=== PATIENT | male | born 1950 | race Caucasian/White ===

== ENCOUNTER → 2020-04-24 | Outpatient (CLI) | payer MEDICARE, BC ==
[2020-04-24 09:26] LABS: Basophils # (A) 0.1 k/uL (0-0.2); Basophils % (A) 1 %; Eosinophils # (A) 0.1 k/uL (0-0.7); Eosinophils % (A) 2 %; HCT 49.8 % (39.0-53.0); HGB 17.5 gm/dL (13.0-17.5); Lymphocytes # (A) 1.6 k/uL (1.0-4.8); Lymphocytes % (A) 23 %; MCH 31.6 pg (25.0-35.0); MCHC 35.1 g/dL (31.0-37.0); Mean Platelet Volume 7.6; Monocytes # (A) 0.3 k/uL (0-1.0); Monocytes % (A) 5 %; Neutrophils # (A) 4.7 k/uL (1.3-7.7); Neutrophils % (A) 68 %; Platelet Count 179 k/uL (150-450); RBC 5.54 m/uL (4.30-5.90); RDW 13.1 % (11.5-15.5); WBC 6.9 k/uL (3.8-10.6)
[2020-04-24 09:27] LABS: Appearance,Urine Clear (Clear); Bilirubin,Urine Negative (Negative); Blood,Urine Negative (Negative); Color,Urine Yellow; Glucose,Urine (UA) 4+ (Negative); Ketones,Urine Negative (Negative); Leukocyte Esterase,Urine Negative (Negative); Nitrite,Urine Negative (Negative); PH, Urine 6.5 (5.0-8.0); Protein,Urine Negative (Negative); Urobilinogen,Urine <2.0 mg/dL (<2.0)
[2020-04-24 15:27] LABS: T4, Free (Free Thyroxine) 1.3 ng/dL (0.80-1.80)
[2020-04-24 15:38] LABS: Albumin 4.6 g/dL (3.80-4.90); Albumin/Globulin Ratio 2.09 (1.60-3.17); Anion Gap 9.1 mmol/L (4.00-12.00); Calcium 9.7 mg/dL (8.7-10.3); Carbon Dioxide 25.9 mmol/L (21.6-31.8); Chol/HDL Ratio 4.17; Globulin 2.2 g/dL (1.6-3.3); LDL Cholesterol,Calculated 86.2 mg/dL (0.0-131.0); Non-African American GFR(CKD) 75.9 (60.0-200.0); PSA Annual Screen 1.1 ng/mL (0.0-4.0); Potassium 4.5 mmol/L (3.5-5.5); Total Bilirubin 0.8 mg/dL (0.3-1.2); Total Protein 6.8 g/dL (6.2-8.2); VLDL Calculation 43.8 mg/dL (5.00-40.00)
== END | disposition home or self-care (01) ==
LOC: LABWHC1 08:48
PROVIDERS: ATTEND Family Medicine
DX: E78.5 Hyperlipidemia, unspecified (principal); E11.9 Type 2 diabetes mellitus without complications; I10 Essential (primary) hypertension; D64.9 Anemia, unspecified; Z12.5 Encounter for screening for malignant neoplasm of prostate
CPT/HCPCS: 84439; 80061; 80053; 84443; 85025; 81003; 36415; G0103

== ENCOUNTER 2021-03-24 01:35 | Inpatient (IN) | payer OTHER, MEDICARE ==
[2021-03-24] MEDS ORDERED: SODIUM CHLORIDE 0.9% 500 ML 500 ML IV STA ×2 (02:04→02:21)
--- NOTE | 2021-03-24 02:09 | ED ---
SOB HPI - General Chief Complaint: Shortness of Breath Stated Complaint: SOB Time Seen by Provider: 03/24/21 01:47 Source: patient Mode of arrival: EMS Limitations: no limitations - History of Present Illness MD Complaint: shortness of breath, cough Onset/Timin -: week(s) Consistency: constant Improves With: nothing Worsens With: nothing Associated Symptoms: fever, cough - Related Data Home Oxygen Therapy: No Allergies Allergy/AdvReac Type Severity Reaction Status Date / Time Penicillins Allergy Unknown Verified 03/24/21 01:41 Review of Systems ROS Statement: Those systems with pertinent positive or pertinent negative responses have been documented in the HPI. ROS Other: All systems not noted in ROS Statement are negative. Constitutional: Reports: fever, chills Respiratory: Reports: cough, dyspnea. Denies: hemoptysis Cardiovascular: Denies: chest pain, palpitations, edema, syncope Gastrointestinal: Denies: abdominal pain, nausea, vomiting, diarrhea Genitourinary: Denies: dysuria, hematuria Musculoskeletal: Denies: back pain Skin: Denies: rash Neurological: Reports: headache. Denies: weakness, numbness Past Medical History Past Medical History: Diabetes Mellitus History of Any Multi-Drug Resistant Organisms: None Reported Past Surgical History: No Surgical Hx Reported Past Psychological History: No Psychological Hx Reported Smoking Status: Never smoker Past Alcohol Use History: None Reported Past Drug Use History: None Reported General Exam Limitations: no limitations General appearance: alert, in no apparent distress Head exam: Present: atraumatic, normocephalic Eye exam: Present: normal appearance. Absent: scleral icterus, conjunctival injection Respiratory exam: Present: rales. Absent: respiratory distress, wheezes, rhonchi, stridor, accessory muscle use Cardiovascular Exam: Present: normal rhythm, tachycardia, normal heart sounds. Absent: systolic murmur, diastolic murmur, rubs, gallop GI/Abdominal exam: Present: soft. Absent: distended, tenderness, guarding, rebound, rigid, mass Extremities exam: Present: normal inspection, normal capillary refill. Absent: pedal edema, calf tenderness Back exam: Present: normal inspection. Absent: CVA tenderness (R), CVA tenderness (L) Neurological exam: Present: alert Skin exam: Present: warm, dry, intact, normal color. Absent: rash Course Vital Signs 03/24/21 03/24/21 03/24/21 01:40 01:41 01:45 Temperature 98.0 F Pulse Rate 120 H 47 L Respiratory 26 H Rate Blood Pressure 114/73 O2 Sat by Pulse 75 L 90 L Oximetry Medical Decision Making - Lab Data Lab Results 03/24/21 Range/Units 01:46 Coronavirus (PCR) Detected A (Not Detectd) - EKG Data -: EKG Interpreted by Mi EKG shows normal: sinus rhythm, axis (Normal), intervals (Normal), QRS complexes (Normal), ST-T waves (Normal) Rate: tachycardia (Rate 118 bpm) Disposition Referrals: Major Malik MD [Primary Care Provider] - 1-2 days
[2021-03-24 02:16] LABS: Basophils # (A) 0.1 k/uL (0-0.2); Basophils % (A) 1 %; Eosinophils % (A) 0 %; HCT 48.9 % (39.0-53.0); HGB 16.9 gm/dL (13.0-17.5); Hyperchromasia Slight; Lymphocytes # (A) 0.6 k/uL (1.0-4.8); Lymphocytes % (A) 5 %; MCH 31.2 pg (25.0-35.0); MCHC 34.7 g/dL (31.0-37.0); MCV 90.2 fL (80.0-100.0); Mean Platelet Volume 8.5; Monocytes # (A) 0.3 k/uL (0-1.0); Monocytes % (A) 3 %; Neutrophils # (A) 10.2 k/uL (1.3-7.7); Neutrophils % (A) 90 %; Platelet Count 237 k/uL (150-450); Poikilocytosis Slight; RBC 5.42 m/uL (4.30-5.90); RDW 13.8 % (11.5-15.5); WBC 11.3 k/uL (3.8-10.6)
[2021-03-24 02:19] LABS: Albumin 3.9 g/dL (3.5-5.0); Calcium 9.1 mg/dL (8.4-10.2); Potassium 4.2 mmol/L (3.5-5.1); Total Bilirubin 1.3 mg/dL (0.2-1.3); Total Protein 7.3 g/dL (6.3-8.2)
--- NOTE | 2021-03-24 02:25 | XR ---
EXAMINATION TYPE: XR chest 1V portable DATE OF EXAM: 03/24/2021 COMPARISON: NONE HISTORY: Short of breath TECHNIQUE: Single view FINDINGS: There is patchy pulmonary infiltrates bilaterally. This is interstitial and airspace diseas e. There is no obvious heart failure. Heart size is normal. There is no definite pleural effusion. Th ere are chest leads. Bony thorax is intact. IMPRESSION: Patchy bilateral pneumonia. Normal heart.
[2021-03-24 02:34] LABS: Glucose,Whole Blood 182 mg/dL (75-99)
[2021-03-24] MEDS ORDERED: MORPHINE SULFATE 4 MG/ML SYRINGE IV STA (02:36)
[2021-03-24 02:39] LABS: Partial Thromboplastin Time 22.2 sec (22.0-30.0); Prothrombin Time 10.4 sec (9.0-12.0)
[2021-03-24] MEDS ORDERED: DEXAMETHASONE SOD PHOSPHATE 4 MG/ML 1 ML VIAL IVP STA (03:01)
--- NOTE | 2021-03-24 03:39 | CT ---
EXAMINATION TYPE: CT chest angio for PE DATE OF EXAM: 03/24/2021 COMPARISON: None HISTORY: elevated d-dimer CT DLP: 576.2 mGycm Automated exposure control for dose reduction was used. CONTRAST: Performed with IV Contrast, patient injected with 75 mL of Isovue 370. There are 3-D post processed images. There are some mediastinal and bronchial lymph nodes that measure up to 1.5 cm. There is hiatal herni a. Heart size is normal. There is extensive patchy interstitial and airspace infiltrate in both lungs . There is no pleural effusion. There is no pericardial effusion. There is moderate hiatal hernia not ed. There is normal contrast opacification of the pulmonary arteries. I see no filling defect. There is some degenerative spurring in the thoracic spine. There is no significant compression deform ity. 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 There is no evidence of rib fracture. Upper abdo severino soft tissues are intact. IMPRESSION: No evidence of pulmonary embolism. Extensive patchy bilateral pneumonia with mediastinal and bronchial adenopathy. Small right pleural e ffusion.
[2021-03-24] MEDS ORDERED: AZITHROMYCIN 500 MG TAB PO STA (03:42)
[2021-03-24] MEDS: DEXAMETHASONE SOD PHOSPHATE 10 MG/ML 1 ML VIAL IVP SCH ×5 (03:42→10:43)
[2021-03-24] MEDS ORDERED: PNEUMONIA PROTOCOL UTILIZED 1 EACH MISC PO PRN (04:02)
[2021-03-24] MEDS ORDERED: ENOXAPARIN 100 MG/ML SYRINGE SQ STA (04:05)
[2021-03-24] MEDS ORDERED: MELATONIN 5 MG TABLET PO PRN (04:39)
--- NOTE | 2021-03-24 04:41 | P.HPIM ---
History of Present Illness H&P Date: 03/24/21 The patient is a 71-year-old male with a PMH of type II DM presented to the emergency room with complaints of myalgias, fevers, headaches, and poor appetite. Patient reports that his symptoms started roughly one week ago and gradually worsened. He also reports a nonproductive cough along with gradually worsening shortness of breath. The patient denied abdominal pain, nausea, vomiting, diarrhea. Also denied visual disturbances, weakness, numbness, tingling. In the emergency room, a coronavirus PCR test was positive with SpO2 upon presentation 75% on room air. Chest CTA revealed bilateral pneumonia without PE with an EKG showing sinus tachycardia at 118 bpm in no acute ST/T- wave changes noted as reviewed by me. Further laboratory evaluation was remarkable for lactic acid of 2.5, BUN 40, creatinine 1.38, glucose 192. Review of systems: Pertinent positives and negatives as discussed in HPI, a complete review of systems was performed and all other systems are negative. Physical examination: General: non toxic, no distress, appears at stated age, obese Derm: no unusual rashes/lesions no unusual ecchymoses, warm, dry Head: atraumatic, normocephalic, symmetric Eyes: EOMI, no lid lag, anicteric sclera, pupils equal round reactive to light ENT: Nose and ears atraumatic, no thrush, no pharyngeal erythema Neck: No thyromegaly, no cervical lymphadenopathy, trachea midline, supple Mouth: no lip lesion, mucus membranes moist Cardiovascular: S1S2 reg, no murmur, positive posterior tibial pulse bilateral, no edema, capillary refill less than 2 seconds Lungs: Diffuse bilateral rhonchi, no wheezing, no accessory muscle use Abdominal: soft, nontender to palpation, no guarding, no appreciable organomegaly, normal bowel sounds Ext: no gross muscle atrophy, muscle strength 5 out of 5 in all 4 extremities grossly, no contractures, Neuro: CN II-XI grossly intact, light touch intact all 4 extremities, finger to nose within normal limits, Psych: Alert, oriented, appropriate affect Assessment/plan COVID 19 pneumonitis with acute hypoxic respiratory failure -Continue supplemental oxygen -Dexamethasone -Zinc, vitamin C, vitamin D, melatonin -Monitor inflammatory markers -Pulmonary consulted Lactic acidosis -IV fluids and monitored resolution Acute kidney injury, likely secondary to poor oral intake -IV fluids and monitor Chronic conditions: Type II DM -Check A1c -Lispro insulin sliding scale and blood glucose monitoring DVT prophylaxis -Lovenox The patient is admitted with an anticipated greater than 2 midnight stay for evaluation of COVID CODE STATUS: Full Code Discussed with: Patient Anticipated discharge date: Unclear Anticipated discharge place: Home Past Medical History Past Medical History: Diabetes Mellitus History of Any Multi-Drug Resistant Organisms: None Reported Past Surgical History: No Surgical Hx Reported Past Psychological History: No Psychological Hx Reported Smoking Status: Never smoker Past Alcohol Use History: None Reported Past Drug Use History: None Reported - Past Family History Mother Family Medical History: Diabetes Mellitus Medications and Allergies Allergies Allergy/AdvReac Type Severity Reaction Status Date / Time Penicillins Allergy Unknown Verified 03/24/21 01:41 Physical Exam Vitals: Vital Signs Temp Pulse Resp BP Pulse Ox 03/24/21 02:34 116 H 22 106/81 90 L 03/24/21 01:45 90 L 03/24/21 01:41 98.0 F 47 L 26 H 114/73 75 L 03/24/21 01:40 120 H Intake and Output 03/23/21 03/23/21 03/24/21 14:59 22:59 06:59 Other: Weight 97.976 kg Results CBC & Chem 7: 03/24/21 01:47 03/24/21 01:47 Labs: Abnormal Lab Results - Last 24 Hours (Table) 03/24/21 03/24/21 03/24/21 Range/Units 01:46 01:47 01:47 WBC 11.3 H (3.8-10.6) k/uL Neutrophils # 10.2 H (1.3-7.7) k/uL Lymphocytes # 0.6 L (1.0-4.8) k/uL D-Dimer >34.10 H (<0.60) mg/L FEU Sodium (137-145) mmol/L Carbon Dioxide (22-30) mmol/L BUN (9-20) mg/dL Creatinine (0.66-1.25) mg/dL Glucose (74-99) mg/dL POC Glucose (mg/dL) (75-99) mg/dL Plasma Lactic Acid Keshav (0.7-2.0) mmol/L Coronavirus (PCR) Detected A (Not Detectd) 03/24/21 03/24/21 03/24/21 Range/Units 01:47 01:47 02:31 WBC (3.8-10.6) k/uL Neutrophils # (1.3-7.7) k/uL Lymphocytes # (1.0-4.8) k/uL D-Dimer (<0.60) mg/L FEU Sodium 134 L (137-145) mmol/L Carbon Dioxide 19 L (22-30) mmol/L BUN 40 H (9-20) mg/dL Creatinine 1.38 H (0.66-1.25) mg/dL Glucose 192 H (74-99) mg/dL POC Glucose (mg/dL) 182 H (75-99) mg/dL Plasma Lactic Acid Keshav 2.5 H* (0.7-2.0) mmol/L Coronavirus (PCR) (Not Detectd)
[2021-03-24] MEDS ORDERED: MAG HYDROX/AL HYDROX/SIMETH 30 ML CUP PO PRN (04:43)
[2021-03-24] MEDS: ALBUTEROL HFA INHALER INHALATION PRN ×4 (07:26→22:17)
[2021-03-24] MEDS: ASCORBIC ACID 500 MG TAB PO SCH (08:40)
[2021-03-24] MEDS: ZINC SULFATE 220 MG CAP PO SCH (08:40)
[2021-03-24] MEDS: CHOLECALCIFEROL 25 MCG (1000 IU) TABLET PO SCH (08:40)
[2021-03-24] MEDS: SODIUM CHLORIDE 0.9% 1,000 ML IV SCH (08:41)
[2021-03-24] MEDS: INSULIN ASPART (NovoLOG) 100 UNIT/ML VIAL SQ SCH ×4 (08:42→21:26)
[2021-03-24 08:44] LABS: Glucose,Whole Blood 191 mg/dL (75-99)
[2021-03-24] MEDS ORDERED: CHOLECALCIFEROL 125 MCG (5000 IU) TABLET PO SCH (09:00)
--- NOTE | 2021-03-24 09:39 | P.CNPUL ---
History of Present Illness Consult date: 03/24/21 Requesting physician: Michael Orantes Reason for consult: dyspnea, cough, hypoxemia, pneumonia, abnormal CXR/CT Chief complaint: Dyspnea, hypoxia, COVID-19 pneumonia History of present illness: 71-year-old white male patient with past medical history of diabetes mellitus type II who presented to the emergency department with the one week history of cough, headaches. His initial symptoms started as what felt like a chest cold, and became progressive. Patient follows with Dr. Malik. His cough is nonproductive. His had no nausea vomiting or diarrhea, no abdominal pain. She tested positive for COVID-19 in the emergency department, and his SpO2 upon presentation was 75% on room air. His chest x-ray showed patchy bilateral pneumonia. D-dimer was elevated at greater than 34.1, and CTA chest was completed showing no evidence of pulmonary embolism, and extensive patchy bilateral pneumonia with mediastinal and bronchial adenopathy and small right pleural effusion. She is currently on 8 L of oxygen his pulse ox is 88-90%, he is in sinus mechanism slightly tachycardic with a rate of 105 BPM, afebrile, he is awaiting a bed on medical surgical floor. He is awake and alert, oriented 3, dyspneic, but appears to be in no acute distress. Started on Decadron 6 mg daily, he is started on vitamins C, D, and zinc, and prophylactic dose Lovenox. Review of Systems All systems: negative Constitutional: Denies chills, Denies fever Eyes: denies blurred vision, denies pain Ears, nose, mouth and throat: Denies headache, Denies sore throat Cardiovascular: Denies chest pain, Denies shortness of breath Respiratory: Reports cough, Reports dyspnea Gastrointestinal: Denies abdominal pain, Denies diarrhea, Denies nausea, Denies vomiting Musculoskeletal: Denies myalgias Integumentary: Denies pruritus, Denies rash Neurological: Denies numbness, Denies weakness Psychiatric: Denies anxiety, Denies depression Endocrine: Denies fatigue, Denies weight change Past Medical History Past Medical History: Diabetes Mellitus History of Any Multi-Drug Resistant Organisms: None Reported Past Surgical History: No Surgical Hx Reported Past Psychological History: No Psychological Hx Reported Smoking Status: Never smoker Past Alcohol Use History: None Reported Past Drug Use History: None Reported - Past Family History Mother Family Medical History: Diabetes Mellitus Medications and Allergies Home Medications Medication Instructions Recorded Confirmed Type Atorvastatin [Lipitor] 10 mg PO DAILY 03/24/21 03/24/21 History Cetirizine HCl [Zyrtec] 10 mg PO DAILY 03/24/21 03/24/21 History Dapagliflozin/Metformin HCl 1 tab PO DAILY 03/24/21 03/24/21 History [Xigduo Xr 10 mg-1,000 mg Tab] Magnesium Oxide 400 mg PO DAILY 03/24/21 03/24/21 History Multivitamins, Thera [Multivitamin 1 tab PO DAILY 03/24/21 03/24/21 History (formulary)] Omeprazole 20 mg PO DAILY 03/24/21 03/24/21 History lisinopriL 10 mg PO DAILY 03/24/21 03/24/21 History Allergies Allergy/AdvReac Type Severity Reaction Status Date / Time Penicillins Allergy Rash/Hives Verified 03/24/21 07:39 Physical Exam Vitals: Vital Signs Temp Pulse Resp BP Pulse Ox 03/24/21 07:36 102 H 16 124/78 88 L 03/24/21 06:06 105 H 18 121/75 90 L 03/24/21 02:34 116 H 22 106/81 90 L 03/24/21 01:45 90 L 03/24/21 01:41 98.0 F 47 L 26 H 114/73 75 L 03/24/21 01:40 120 H Intake and Output 03/23/21 03/24/21 03/24/21 22:59 06:59 14:59 Other: Weight 97.976 kg GENERAL EXAM: Alert, very pleasant, 71-year-old white male, on 8 L of oxygen with pulse ox of 80-90%, resting in a gurney in the emergency department comfortable in no apparent distress. HEAD: Normocephalic/atraumatic. EYES: Normal reaction of pupils, equal size. Conjunctiva pink, sclera white. NOSE: Clear with pink turbinates. THROAT: No erythema or exudates. NECK: No masses, no JVD, no thyroid enlargement, no adenopathy. CHEST: No chest wall deformity. Symmetrical expansion. LUNGS: Equal air entry with diffuse crackles bilaterally CVS: Regular rate and rhythm, normal S1 and S2, no gallops, no murmurs, no rubs ABDOMEN: Soft, nontender. No hepatosplenomegaly, normal bowel sounds, no guarding or rigidity. EXTREMITIES: No clubbing, no edema, no cyanosis, 2+ pulses and upper and lower extremities. MUSCULOSKELETAL: Muscle strength and tone normal. SPINE: No scoliosis or deformity SKIN: No rashes CENTRAL NERVOUS SYSTEM: Alert and oriented -3. No focal deficits, tone is normal in all 4 extremities. PSYCHIATRIC: Alert and oriented -3. Appropriate affect. Intact judgment and insight. Results - Laboratory Findings CBC and BMP: 03/24/21 01:47 03/24/21 01:47 PT/INR, D-dimer PT 10.4 sec (9.0-12.0) 03/24/21 01:47 INR 1.0 (<1.2) 03/24/21 01:47 D-Dimer >34.10 mg/L FEU (<0.60) H 03/24/21 01:47 Abnormal lab findings: Abnormal Labs 03/24/21 03/24/21 03/24/21 01:46 01:47 01:47 WBC 11.3 H Neutrophils # 10.2 H Lymphocytes # 0.6 L D-Dimer >34.10 H Sodium Carbon Dioxide BUN Creatinine Glucose POC Glucose (mg/dL) Plasma Lactic Acid Keshav Coronavirus (PCR) Detected A 03/24/21 03/24/21 03/24/21 01:47 01:47 02:31 WBC Neutrophils # Lymphocytes # D-Dimer Sodium 134 L Carbon Dioxide 19 L BUN 40 H Creatinine 1.38 H Glucose 192 H POC Glucose (mg/dL) 182 H Plasma Lactic Acid Keshav 2.5 H* Coronavirus (PCR) 03/24/21 08:38 WBC Neutrophils # Lymphocytes # D-Dimer Sodium Carbon Dioxide BUN Creatinine Glucose POC Glucose (mg/dL) 191 H Plasma Lactic Acid Keshav Coronavirus (PCR) - Diagnostic Findings Chest x-ray: report reviewed, image reviewed CT scan - chest: report reviewed, image reviewed Assessment and Plan Plan: Assessment: #1. Acute hypoxic respiratory failure related to acute COVID-19 pneumonia, patient presented with 1 week history of symptoms with cough, shortness of breath, headaches. Tested positive in the emergency department on 03/23/2021. Patient is not a candidate for Remdesivir related to his increased oxygen demand, patient currently on 8 L of oxygen. Will be treated supportively with a combination of steroids, vitamins, and prophylactic anticoagulation #2. Elevated d-dimer with no CTA evidence of pulmonary embolism, we will check lower extremity Dopplers #3. Acute kidney injury #4. Mild lactic acidosis, patient was given IV fluid bolus in the emergency department, repeat lactic acid is pending #5. Diabetes mellitus type 2 Plan: Continue Decadron 6 blood gram daily Continue prophylactic Lovenox We will check lower extremity Dopplers for evidence of DVT Chest x-ray and CT angiogram chest reviewed, labs reviewed Patient is not a candidate for Remdesivir related to his increased oxygen demand If his oxygen demand continues to rise may consider baricitinib Continue gentle IV hydration Follow-up labs including CBC CMP, inflammatory markers and a d-dimer tomorrow Continue vitamin C, D and zinc I performed a history & physical examination of the patient and discussed their management with my nurse practitioner, Mary Davis. I reviewed the nurse practitioner's note and agree with the documented findings and plan of care. Lung sounds are positive for bibasilar crackles throughout the lung gotti. The findings and the impression was discussed with the patient. I attest to the documentation by the nurse practitioner. Time with Patient: Greater than 30
--- NOTE | 2021-03-24 09:45 | US ---
EXAMINATION TYPE: US venous doppler duplex LE DATE OF EXAM: 03/24/2021 9:01 AM COMPARISON: NONE CLINICAL HISTORY: 71-year-old male elevated d-dimer. Covid SIDE PERFORMED: Bilateral TECHNIQUE: The lower extremity deep venous system is examined utilizing real time linear array sonog diane with graded compression, doppler sonography and color-flow sonography. FINDINGS: VESSELS IMAGED: Common Femoral Vein Deep Femoral Vein Greater Saphenous Vein * Femoral Vein Popliteal Vein Small Saphenous Vein * Proximal Calf Veins (* superficial vessels) Tax Accountant notes: Slow flow noted Right Leg: Negative for DVT Left Leg: Negative for DVT IMPRESSION: Some areas of slow flow noted by the junior high school teacher. However, no evidence for DVT within the bilateral l ower extremities imaged from the groin to the upper calves.
[2021-03-24 11:05] LABS: HCT 45.8 % (39.6-50.0); HGB 15.6 g/dL (13.0-17.0); MCH 30.8 pg (27.0-32.0); MCHC 34.1 g/dL (32.0-37.0); MCV 90.3 fL (80.0-97.0); Mean Platelet Volume 11.2 fL (9.5-12.2); Platelet Count 244 X 10*3/uL (140-440); RBC 5.07 X 10*6/uL (4.40-5.60); RDW 13.5 % (11.5-14.5); WBC 12.32 X 10*3/uL (4.50-10.00)
[2021-03-24 11:09] LABS: African American GFR (CKD) 70.1 (60.0-200.0); Anion Gap 20.9 mmol/L (4.00-12.00); BUN/Creat Ratio 29.75 Ratio (12.00-20.00); Blood Urea Nitrogen 35.7 mg/dL (9.0-27.0); Calcium 8.6 mg/dL (8.7-10.3); Carbon Dioxide 15.1 mmol/L (21.6-31.8); Non-African American GFR(CKD) 60.5 (60.0-200.0); Potassium 4.7 mmol/L (3.5-5.5)
[2021-03-24 11:48] LABS: Glucose,Whole Blood 212 mg/dL (75-99)
--- NOTE | 2021-03-24 13:30 | P.PN ---
<Melecio Ramsey - Last Filed: 03/24/21 12:56> Subjective Progress Note Date: 03/24/21 Hospital Course: The patient is a 71-year-old male with a past medical history of hypertension, hyperlipidemia, and type II drm-qmuxpsj-knpbjshdd diabetes mellitus. He presented to the emergency department on 03/23/21 with a chief complaint of shortness of breath, fever, cough, myalgias, and poor appetite beginning approximately one week ago. He was seen and fully evaluated in the emergency department where he had a chest x-ray revealing bilateral patchy pneumonia and a CTA negative for pulmonary embolism revealing extensive patchy bilateral pneumonia with mediastinal and bronchial adenopathy and small right pleural effusion. Covid PCR POSITIVE. EKG revealed sinus tachycardia at 118 bpm with no noted T-wave or ST abnormalities showing no signs of acute ischemia. Lab findings revealed leukocytosis with WBC count of 12.32, d-dimer >34.10, sodium 133, BUN 35.7, and carbon dioxide 15.1 with normal chloride and elevated anion gap of 20.90. Lactic acid 2.5 and procalcitonin 1.51. Patient was admitted under our services with consultation to pulmonology. Patient did not receive Covid vaccination. Physical examination: Patient seen and fully evaluated at the bedside this morning. Upon initial assessment, venous Dopplers were being completed and patient was on 6 L O2 via nasal cannula with SpO2 87-88% decreasing to 85% with minimal conversation. Oxygen increased to 8 L at this time and patient maintaining between 90 and 91%. Pt reports continued shortness of breath and cough in addition to reports of back pain in which he states as being chronic but has been exacerbated by lying in the hospital bed. Morning labs revealing continued leukocytosis with WBC count of 12.32, mild hyponatremia with sodium of 133 continued acidosis with CO2 of 15.1, chloride 97, and anion gap of 20.90. Pending repeat lactic acid. General: non toxic, mild distress secondary to increased respiratory effort, appears at stated age Derm: warm, dry Head: atraumatic, normocephalic, symmetric Eyes: EOMI, no lid lag, anicteric sclera Mouth: no lip lesion, mucus membranes moist Cardiovascular: S1S2 reg, no murmur, positive posterior tibial pulses bilaterally, regular rhythm, tachycardic rate Lungs: Increased respiratory effort, Diffuse coarse crackles throughout mid and lower lungs, no wheezing. Coarse raspy cough noted during assessment. Cu rrently on 8 L O2 via high flow nasal cannula. Abdominal: soft, nontender to palpation, no guarding, no appreciable organomegaly Ext: no gross muscle atrophy, no edema, no contractures Neuro: CN II-XI grossly intact, no focal neuro deficits Psych: Alert, oriented, appropriate affect Assessment and plan of care: Acute respiratory failure with hypoxia secondary to COVID 19 pneumonia in non- vaccinated person -Oxygenation to be administered and titrated as needed to maintain SPO2 equal to or greater than 90% -Telemetry monitoring. -Follow inflammatory markers -Encourage Incentive Spirometry 10-15x hourly while awake -Steroids: Decadron 6 mg daily -Continue vitamin C, Vitamin D, and Zinc. -Pulmonology following, appreciate further recommendations. -DVT prophylaxis with Lovenox. -Strict Droplet plus Contact precautions Elevated d-dimer, CTA negative for PE Lactic acidosis -Lactic acid was 2.5. Morning labs show CO2 of 15.1, chloride 97, and anion gap of 20.90. -IV fluids given and will monitor for resolution, repeat lactate pending. Acute kidney injury, likely secondary to poor oral intake, improving -Initial labs revealed BUN of 40, creatinine of 1.38, and GFR 51 this improved after IV fluids given in ER with BUN of 35.7, creatinine 1.2, and GFR of 60.5. -We will continue to monitor with repeat a.m. labs. Type II ntt-vjltjhb-pjotggsxf diabetes mellitus Hold Glucophage in place patient on glycemic protocol with NovoLog sliding scale. Hypertension Monitor vital signs and continue daily medication regimen with lisinopril. Hyperlipidemia Continue daily medication regimen with atorvastatin 10 mg daily. CODE STATUS: Full code DVT prophylaxis: Lovenox Discussed with: Patient, patient's , and RN Anticipated discharge date: Clinical course to determine Anticipated discharge place: Home A total of 45 minutes was spent on the care of this complex patient more than 50% of the time was spent in counseling and care coordination. Objective - Vital Signs Vital signs: Vital Signs Temp 98.0 F 03/24/21 01:44 Pulse 102 H 03/24/21 07:36 Resp 16 03/24/21 07:36 BP 124/78 03/24/21 07:36 Pulse Ox 88 L 03/24/21 07:36 Intake & Output 03/23/21 03/24/2121 18:59 06:59 18:59 Weight 97.976 kg - Labs CBC & Chem 7: 03/24/21 07:45 03/24/21 07:45 Labs: Abnormal Lab Results - Last 24 Hours (Table) 03/24/21 03/24/21 03/24/21 Range/Units 01:46 01:47 01:47 WBC 11.3 H (3.8-10.6) k/uL Neutrophils # 10.2 H (1.3-7.7) k/uL Lymphocytes # 0.6 L (1.0-4.8) k/uL D-Dimer >34.10 H (<0.60) mg/L FEU Sodium (137-145) mmol/L Carbon Dioxide (22-30) mmol/L Anion Gap (4.00-12.00) mmol/L BUN (9-20) mg/dL Creatinine (0.66-1.25) mg/dL BUN/Creatinine Ratio (12.00-20.00) Ratio Glucose (74-99) mg/dL POC Glucose (mg/dL) (75-99) mg/dL Plasma Lactic Acid Keshav (0.7-2.0) mmol/L Calcium (8.7-10.3) mg/dL Procalcitonin (0.02-0.09) ng/mL Coronavirus (PCR) Detected A (Not Detectd) 03/24/21 03/24/21 03/24/21 Range/Units 01:47 01:47 02:31 WBC (3.8-10.6) k/uL Neutrophils # (1.3-7.7) k/uL Lymphocytes # (1.0-4.8) k/uL D-Dimer (<0.60) mg/L FEU Sodium 134 L (137-145) mmol/L Carbon Dioxide 19 L (22-30) mmol/L Anion Gap (4.00-12.00) mmol/L BUN 40 H (9-20) mg/dL Creatinine 1.38 H (0.66-1.25) mg/dL BUN/Creatinine Ratio (12.00-20.00) Ratio Glucose 192 H (74-99) mg/dL POC Glucose (mg/dL) 182 H (75-99) mg/dL Plasma Lactic Acid Keshav 2.5 H* (0.7-2.0) mmol/L Calcium (8.7-10.3) mg/dL Procalcitonin (0.02-0.09) ng/mL Coronavirus (PCR) (Not Detectd) 03/24/21 03/24/21 03/24/21 Range/Units 03:20 07:45 07:45 WBC 12.32 H (3.8-10.6) k/uL Neutrophils # (1.3-7.7) k/uL Lymphocytes # (1.0-4.8) k/uL D-Dimer (<0.60) mg/L FEU Sodium 133 L (137-145) mmol/L Carbon Dioxide 15.1 L (22-30) mmol/L Anion Gap 20.90 H (4.00-12.00) mmol/L BUN 35.7 H (9-20) mg/dL Creatinine (0.66-1.25) mg/dL BUN/Creatinine Ratio 29.75 H (12.00-20.00) Ratio Glucose 201 H (74-99) mg/dL POC Glucose (mg/dL) (75-99) mg/dL Plasma Lactic Acid Keshav (0.7-2.0) mmol/L Calcium 8.6 L (8.7-10.3) mg/dL Procalcitonin 1.51 H (0.02-0.09) ng/mL Coronavirus (PCR) (Not Detectd) 03/24/21 03/24/21 Range/Units 08:38 11:45 WBC (3.8-10.6) k/uL Neutrophils # (1.3-7.7) k/uL Lymphocytes # (1.0-4.8) k/uL D-Dimer (<0.60) mg/L FEU Sodium (137-145) mmol/L Carbon Dioxide (22-30) mmol/L Anion Gap (4.00-12.00) mmol/L BUN (9-20) mg/dL Creatinine (0.66-1.25) mg/dL BUN/Creatinine Ratio (12.00-20.00) Ratio Glucose (74-99) mg/dL POC Glucose (mg/dL) 191 H 212 H (75-99) mg/dL Plasma Lactic Acid Keshav (0.7-2.0) mmol/L Calcium (8.7-10.3) mg/dL Procalcitonin (0.02-0.09) ng/mL Coronavirus (PCR) (Not Detectd) <Geovanna Ni - Last Filed: 03/24/21 13:55> Subjective I reviewed the documentation as provided by the OPAL above, who is the original author of this note. I agree with the documented assessment and plan, with the following changes: None Objective - Vital Signs Vital signs: Vital Signs Temp 98.0 F 03/24/21 13:46 Pulse 98 03/24/21 13:46 Resp 18 03/24/21 13:46 BP 121/77 03/24/21 13:46 Pulse Ox 89 L 03/24/21 13:46 Intake & Output 03/23/21 03/24/21 03/24/21 18:59 06:59 18:59 Weight 97.976 kg - Labs CBC & Chem 7: 03/24/21 07:45 03/24/21 07:45 Labs: Abnormal Lab Results - Last 24 Hours (Table) 03/24/21 03/24/21 03/24/21 Range/Units 01:46 01:47 01:47 WBC 11.3 H (3.8-10.6) k/uL Neutrophils # 10.2 H (1.3-7.7) k/uL Lymphocytes # 0.6 L (1.0-4.8) k/uL D-Dimer >34.10 H (<0.60) mg/L FEU Sodium (137-145) mmol/L Carbon Dioxide (22-30) mmol/L Anion Gap (4.00-12.00) mmol/L BUN (9-20) mg/dL Creatinine (0.66-1.25) mg/dL BUN/Creatinine Ratio (12.00-20.00) Ratio Glucose (74-99) mg/dL POC Glucose (mg/dL) (75-99) mg/dL Plasma Lactic Acid Keshav (0.7-2.0) mmol/L Calcium (8.7-10.3) mg/dL Procalcitonin (0.02-0.09) ng/mL Coronavirus (PCR) Detected A (Not Detectd) 03/24/21 03/24/21 03/24/21 Range/Units 01:47 01:47 02:31 WBC (3.8-10.6) k/uL Neutrophils # (1.3-7.7) k/uL Lymphocytes # (1.0-4.8) k/uL D-Dimer (<0.60) mg/L FEU Sodium 134 L (137-145) mmol/L Carbon Dioxide 19 L (22-30) mmol/L Anion Gap (4.00-12.00) mmol/L BUN 40 H (9-20) mg/dL Creatinine 1.38 H (0.66-1.25) mg/dL BUN/Creatinine Ratio (12.00-20.00) Ratio Glucose 192 H (74-99) mg/dL POC Glucose (mg/dL) 182 H (75-99) mg/dL Plasma Lactic Acid Keshav 2.5 H* (0.7-2.0) mmol/L Calcium (8.7-10.3) mg/dL Procalcitonin (0.02-0.09) ng/mL Coronavirus (PCR) (Not Detectd) 03/24/21 03/24/21 03/24/21 Range/Units 03:20 07:45 07:45 WBC 12.32 H (3.8-10.6) k/uL Neutrophils # (1.3-7.7) k/uL Lymphocytes # (1.0-4.8) k/uL D-Dimer (<0.60) mg/L FEU Sodium 133 L (137-145) mmol/L Carbon Dioxide 15.1 L (22-30) mmol/L Anion Gap 20.90 H (4.00-12.00) mmol/L BUN 35.7 H (9-20) mg/dL Creatinine (0.66-1.25) mg/dL BUN/Creatinine Ratio 29.75 H (12.00-20.00) Ratio Glucose 201 H (74-99) mg/dL POC Glucose (mg/dL) (75-99) mg/dL Plasma Lactic Acid Keshav (0.7-2.0) mmol/L Calcium 8.6 L (8.7-10.3) mg/dL Procalcitonin 1.51 H (0.02-0.09) ng/mL Coronavirus (PCR) (Not Detectd) 03/24/21 03/24/21 Range/Units 08:38 11:45 WBC (3.8-10.6) k/uL Neutrophils # (1.3-7.7) k/uL Lymphocytes # (1.0-4.8) k/uL D-Dimer (<0.60) mg/L FEU Sodium (137-145) mmol/L Carbon Dioxide (22-30) mmol/L Anion Gap (4.00-12.00) mmol/L BUN (9-20) mg/dL Creatinine (0.66-1.25) mg/dL BUN/Creatinine Ratio (12.00-20.00) Ratio Glucose (74-99) mg/dL POC Glucose (mg/dL) 191 H 212 H (75-99) mg/dL Plasma Lactic Acid Keshav (0.7-2.0) mmol/L Calcium (8.7-10.3) mg/dL Procalcitonin (0.02-0.09) ng/mL Coronavirus (PCR) (Not Detectd)
[2021-03-24 16:38] LABS: Glucose,Whole Blood 252 mg/dL (75-99)
[2021-03-24 20:50] LABS: Glucose,Whole Blood 285 mg/dL (75-99)
[2021-03-24] MEDS: ENOXAPARIN 40 MG/0.4 ML SYRINGE SQ SCH (21:26)
[2021-03-25 07:04] LABS: Glucose,Whole Blood 211 mg/dL (75-99)
[2021-03-25] MEDS: PANTOPRAZOLE 40 MG TABLET PO SCH (08:07)
[2021-03-25] MEDS: ATORVASTATIN 10 MG TAB PO SCH (08:07)
[2021-03-25] MEDS: ZINC SULFATE 220 MG CAP PO SCH (08:07)
[2021-03-25] MEDS: HYDROcodone/APAP 5-325MG 1 EACH TAB PO PRN (08:08)
[2021-03-25] MEDS: CHOLECALCIFEROL 25 MCG (1000 IU) TABLET PO SCH (08:08)
[2021-03-25] MEDS: ASCORBIC ACID 500 MG TAB PO SCH (08:08)
[2021-03-25] MEDS: lisinopriL 10 MG TAB PO SCH (08:08)
[2021-03-25] MEDS: INSULIN ASPART (NovoLOG) 100 UNIT/ML VIAL SQ SCH ×4 (08:09→20:35)
[2021-03-25] MEDS: DEXAMETHASONE SOD PHOSPHATE 10 MG/ML 1 ML VIAL IVP SCH (08:09)
--- NOTE | 2021-03-25 08:15 | XR ---
EXAMINATION TYPE: XR chest 1V portable DATE OF EXAM: 03/25/2021 HISTORY: Shortness of breath. COMPARISON: 03/24/2021 TECHNIQUE: Single view of the chest is submitted. FINDINGS: Demonstrated are scattered senescent parenchymal change. Patchy infiltrates are seen bilaterally compatible with pneumonia. No significant change appreciated. The heart is stable. Hilar and mediastinal structures are within normal limits. Degenerative changes are seen of the dorsal spine. IMPRESSION: 1. Patchy infiltrates are seen bilaterally compatible with pneumonia. No significant change apprecia sobeida.
[2021-03-25] MEDS: SODIUM CHLORIDE 0.9% 1,000 ML IV SCH (08:51)
[2021-03-25 09:16] LABS: Basophils # (A) 0.05 X 10*3/uL (0.00-0.10); Basophils % (A) 0.4 %; Eosinophils # (A) 0.03 X 10*3/uL (0.04-0.35); Eosinophils % (A) 0.3 %; HCT 46.5 % (39.6-50.0); HGB 15.4 g/dL (13.0-17.0); Lymphocytes # (A) 0.77 X 10*3/uL (0.90-5.00); Lymphocytes % (A) 6.6 %; MCHC 33.1 g/dL (32.0-37.0); MCV 90.5 fL (80.0-97.0); Mean Platelet Volume 10.8 fL (9.5-12.2); Monocytes # (A) 0.51 X 10*3/uL (0.20-1.00); Monocytes % (A) 4.4 %; Neutrophils # (A) 10.17 X 10*3/uL (1.80-7.70); Neutrophils % (A) 86.8 %; Platelet Count 287 X 10*3/uL (140-440); RBC 5.14 X 10*6/uL (4.40-5.60); RDW 13.2 % (11.5-14.5); WBC 11.71 X 10*3/uL (4.50-10.00)
[2021-03-25 09:43] LABS: African American GFR (CKD) 77.9 (60.0-200.0); Albumin 3.6 g/dL (3.8-4.9); Albumin/Globulin Ratio 1.2 (1.60-3.17); Anion Gap 15.4 mmol/L (4.00-12.00); BUN/Creat Ratio 38.73 Ratio (12.00-20.00); Blood Urea Nitrogen 42.6 mg/dL (9.0-27.0); C Reactive Protein 21.8 mg/dL (0.00-0.80); Carbon Dioxide 21.6 mmol/L (21.6-31.8); Non-African American GFR(CKD) 67.2 (60.0-200.0); Potassium 4.5 mmol/L (3.5-5.5); Total Bilirubin 0.4 mg/dL (0.30-1.20); Total Protein 6.6 g/dL (6.2-8.2)
[2021-03-25 11:54] LABS: Glucose,Whole Blood 260 mg/dL (75-99)
[2021-03-25] MEDS: AZITHROMYCIN 500 MG in SODIUM CHLORIDE 0.9% 250 ML IVPB SCH (13:49)
--- NOTE | 2021-03-25 15:15 | P.PN ---
Subjective Progress Note Date: 03/25/21 Principal diagnosis: Dyspnea, hypoxia, COVID-19 71-year-old white male patient with past medical history of diabetes mellitus type II who presented to the emergency department with the one week history of cough, headaches. His initial symptoms started as what felt like a chest cold, and became progressive. Patient follows with Dr. Malik. His cough is nonproductive. His had no nausea vomiting or diarrhea, no abdominal pain. She tested positive for COVID-19 in the emergency department, and his SpO2 upon presentation was 75% on room air. His chest x-ray showed patchy bilateral pneumonia. D-dimer was elevated at greater than 34.1, and CTA chest was completed showing no evidence of pulmonary embolism, and extensive patchy bilateral pneumonia with mediastinal and bronchial adenopathy and small right pleural effusion. She is currently on 8 L of oxygen his pulse ox is 88-90%, he is in sinus mechanism slightly tachycardic with a rate of 105 BPM, afebrile, he is awaiting a bed on medical surgical floor. He is awake and alert, oriented 3, dyspneic, but appears to be in no acute distress. Started on Decadron 6 mg daily, he is started on vitamins C, D, and zinc, and prophylactic dose Lovenox. On 03/25/2021 patient seen in follow-up on medical surgical floor, he is awake and alert, breathing comfortably, he is currently up to 10 L of oxygen pulse ox is 92%. No fever or chills. Mild cough, no chest discomfort. Chest x-ray today shows patchy infiltrates bilaterally, no significant change compared to last chest x-ray. Afebrile, overall patient states he feels better. His labs have been reviewed, white blood cell count is 11.7, hemoglobin is 15.4, d-dimer is down to 3.9, sodium is 137, potassium 4.5, BUN is 42, creatinine is 1.1, LDH is 643, CRP is 21.8. Troponin was negative at less than 0.012, BNP was 144. Pro-calcitonin level was elevated at 1.51 was placed on empiric antibiotic coverage with a combination of azithromycin and Rocephin Objective - Vital Signs Vital signs: Vital Signs Temp 97.7 F 03/25/21 14:00 Pulse 104 H 03/25/21 14:00 Resp 17 03/25/21 14:00 BP 99/62 03/25/21 14:00 Pulse Ox 90 L 03/25/21 14:00 Intake & Output 03/24/21 03/25/21 03/25/21 18:59 06:59 18:59 Intake Total 50 Balance 50 Weight 97.976 kg Intake: Intake, IV Titration 50 Amount cefTRIAXone 2 gm In 50 Sodium Chloride 0.9% 50 ml @ 100 mls/hr IVPB ONCE STA Rx#:[id number] Other: Voiding Method Toilet Toilet - Exam GENERAL EXAM: Alert, very pleasant, 71-year-old white male, on 10 L of oxygen with pulse ox of 88-92%, upon his been HEAD: Normocephalic/atraumatic. EYES: Normal reaction of pupils, equal size. Conjunctiva pink, sclera white. NOSE: Clear with pink turbinates. THROAT: No erythema or exudates. NECK: No masses, no JVD, no thyroid enlargement, no adenopathy. CHEST: No chest wall deformity. Symmetrical expansion. LUNGS: Equal air entry with diffuse crackles bilaterally CVS: Regular rate and rhythm, normal S1 and S2, no gallops, no murmurs, no rubs ABDOMEN: Soft, nontender. No hepatosplenomegaly, normal bowel sounds, no guarding or rigidity. EXTREMITIES: No clubbing, no edema, no cyanosis, 2+ pulses and upper and lower extremities. MUSCULOSKELETAL: Muscle strength and tone normal. SPINE: No scoliosis or deformity SKIN: No rashes CENTRAL NERVOUS SYSTEM: Alert and oriented -3. No focal deficits, tone is normal in all 4 extremities. PSYCHIATRIC: Alert and oriented -3. Appropriate affect. Intact judgment and insight. - Labs CBC & Chem 7: 03/25/21 06:08 03/25/21 06:08 Labs: Abnormal Lab Results - Last 24 Hours (Table) 03/24/21 03/24/21 03/24/21 Range/Units 07:45 16:36 20:46 WBC (4.50-10.00) X 10*3/uL Immature Gran # (0.00-0.04) X 10*3/uL Neutrophils # (1.80-7.70) X 10*3/uL Lymphocytes # (0.90-5.00) X 10*3/uL Eosinophils # (0.04-0.35) X 10*3/uL D-Dimer (<0.60) mg/L FEU Anion Gap (4.00-12.00) mmol/L BUN (9.0-27.0) mg/dL BUN/Creatinine Ratio (12.00-20.00) Ratio Glucose (70-110) mg/dL POC Glucose (mg/dL) 252 H 285 H (75-99) mg/dL Hemoglobin A1c 7.9 H (4.0-6.0) % AST (14-35) U/L Alkaline Phosphatase (41-126) U/L Lactate Dehydrogenase (120-246) U/L C-Reactive Protein (0.00-0.80) mg/dL Albumin (3.8-4.9) g/dL Albumin/Globulin Ratio (1.60-3.17) g/dL 03/25/21 03/25/21 03/25/21 Range/Units 06:08 06:08 06:08 WBC 11.71 H (4.50-10.00) X 10*3/uL Immature Gran # 0.18 H (0.00-0.04) X 10*3/uL Neutrophils # 10.17 H (1.80-7.70) X 10*3/uL Lymphocytes # 0.77 L (0.90-5.00) X 10*3/uL Eosinophils # 0.03 L (0.04-0.35) X 10*3/uL D-Dimer 3.91 H (<0.60) mg/L FEU Anion Gap 15.40 H (4.00-12.00) mmol/L BUN 42.6 H (9.0-27.0) mg/dL BUN/Creatinine Ratio 38.73 H (12.00-20.00) Ratio Glucose 216 H (70-110) mg/dL POC Glucose (mg/dL) (75-99) mg/dL Hemoglobin A1c (4.0-6.0) % AST 46 H (14-35) U/L Alkaline Phosphatase 36 L (41-126) U/L Lactate Dehydrogenase 643 H (120-246) U/L C-Reactive Protein 21.80 H (0.00-0.80) mg/dL Albumin 3.6 L (3.8-4.9) g/dL Albumin/Globulin Ratio 1.20 L (1.60-3.17) g/dL 03/25/21 03/25/21 Range/Units 07:00 11:48 WBC (4.50-10.00) X 10*3/uL Immature Gran # (0.00-0.04) X 10*3/uL Neutrophils # (1.80-7.70) X 10*3/uL Lymphocytes # (0.90-5.00) X 10*3/uL Eosinophils # (0.04-0.35) X 10*3/uL D-Dimer (<0.60) mg/L FEU Anion Gap (4.00-12.00) mmol/L BUN (9.0-27.0) mg/dL BUN/Creatinine Ratio (12.00-20.00) Ratio Glucose (70-110) mg/dL POC Glucose (mg/dL) 211 H 260 H (75-99) mg/dL Hemoglobin A1c (4.0-6.0) % AST (14-35) U/L Alkaline Phosphatase (41-126) U/L Lactate Dehydrogenase (120-246) U/L C-Reactive Protein (0.00-0.80) mg/dL Albumin (3.8-4.9) g/dL Albumin/Globulin Ratio (1.60-3.17) g/dL Microbiology - Last 24 Hours (Table) 03/24/21 03:58 Blood Culture - Preliminary Blood No Growth after 24 hours 03/24/21 03:43 Blood Culture - Preliminary Blood No Growth after 24 hours Assessment and Plan Plan: Assessment: #1. Acute hypoxic respiratory failure related to acute COVID-19 pneumonia, patient presented with 1 week history of symptoms with cough, shortness of breath, headaches. Tested positive in the emergency department on 03/23/2021. Patient is not a candidate for Remdesivir related to his increased oxygen demand, patient currently on 8 L of oxygen. Will be treated supportively with a combination of steroids, vitamins, and prophylactic anticoagulation #2. Elevated d-dimer with no CTA evidence of pulmonary embolism, we will check lower extremity Dopplers #3. Acute kidney injury #4. Mild lactic acidosis, patient was given IV fluid bolus in the emergency department, repeat lactic acid is pending #5. Diabetes mellitus type 2 #6. Elevated pro-calcitonin with the possibility of bacterial infection and possibility of bacterial pneumonia Plan: Continue Decadron, Lovenox Continue prophylactic Lovenox Lower extremity DVT is negative Continue Azithromycin and Rocephin Continue gentle IV hydration Continue vitamin C, D and zinc Continue monitoring for worsening hypoxia and dyspnea I performed a history & physical examination of the patient and discussed their management with my nurse practitioner, Mary Davis. I reviewed the nurse practitioner's note and agree with the documented findings and plan of care. Lung sounds are positive for bibasilar crackles throughout the lung gotti. The findings and the impression was discussed with the patient. I attest to the documentation by the nurse practitioner. Time with Patient: Less than 30
[2021-03-25 17:11] LABS: Glucose,Whole Blood 313 mg/dL (75-99)
[2021-03-25] MEDS: ALBUTEROL HFA INHALER INHALATION PRN ×2 (17:27→21:48)
--- NOTE | 2021-03-25 18:55 | P.PN ---
Subjective Progress Note Date: 03/25/21 71-year-old male with a past medical history of hypertension, hyperlipidemia, and type II cji-osrngwg-fteycpvil diabetes mellitus. He presented to the emergency department on 03/23/21 with a chief complaint of shortness of breath, fever, cough, myalgias, and poor appetite beginning approximately one week ago. He was seen and fully evaluated in the emergency department where he had a chest x-ray revealing bilateral patchy pneumonia and a CTA negative for pulmonary embolism revealing extensive patchy bilateral pneumonia with mediastinal and bronchial adenopathy and small right pleural effusion. Covid PCR POSITIVE.. Patient seen and evaluated at bedside, today patient does not report any worsening of his breathing or report any new significant chest pain. he is currently up to 10 L of oxygen pulse ox is 92%. No fever or chills. Mild cough, no chest discomfort. Chest x-ray today shows patchy infiltrates bilaterally, no significant change compared to last chest x-ray. Afebrile, overall patient states he feels better. Objective - Vital Signs Vital signs: Vital Signs Temp 97.6 F 03/25/21 18:00 Pulse 96 03/25/21 18:00 Resp 18 03/25/21 18:00 BP 104/71 03/25/21 18:00 Pulse Ox 90 L 03/25/21 18:00 Intake & Output 03/24/21 03/25/21 03/25/21 18:59 06:59 18:59 Intake Total 50 Balance 50 Weight 97.976 kg Intake: Intake, IV Titration 50 Amount cefTRIAXone 2 gm In 50 Sodium Chloride 0.9% 50 ml @ 100 mls/hr IVPB ONCE STA Rx#:[id number] Other: Voiding Method Toilet Toilet # Voids 2 General: non toxic, no acute distress, alert oriented to time place and person Head: atraumatic, normocephalic, symmetric Eyes: no lid lesion], anicteric sclera Mouth: no lip lesion, mucus membranes moist Cardiovascular: S1S2 reg rate and rhythm, no murmur, no gallop Lungs: Bilateral equal air entry, no wheezing no rhonchi no crackles. Abdominal: Nondistended Ext: no edema Neuro: Alert oriented to time place and person, exam grossly nonfocal Skin exam: No rashes no jaundice. - Labs CBC & Chem 7: 03/25/21 06:08 03/25/21 06:08 Labs: Abnormal Lab Results - Last 24 Hours (Table) 03/24/21 03/25/21 03/25/21 Range/Units 20:46 06:08 06:08 WBC 11.71 H (4.50-10.00) X 10*3/uL Immature Gran # 0.18 H (0.00-0.04) X 10*3/uL Neutrophils # 10.17 H (1.80-7.70) X 10*3/uL Lymphocytes # 0.77 L (0.90-5.00) X 10*3/uL Eosinophils # 0.03 L (0.04-0.35) X 10*3/uL D-Dimer 3.91 H (<0.60) mg/L FEU Anion Gap (4.00-12.00) mmol/L BUN (9.0-27.0) mg/dL BUN/Creatinine Ratio (12.00-20.00) Ratio Glucose (70-110) mg/dL POC Glucose (mg/dL) 285 H (75-99) mg/dL AST (14-35) U/L Alkaline Phosphatase (41-126) U/L Lactate Dehydrogenase (120-246) U/L C-Reactive Protein (0.00-0.80) mg/dL Albumin (3.8-4.9) g/dL Albumin/Globulin Ratio (1.60-3.17) g/dL 03/25/21 03/25/21 03/25/21 Range/Units 06:08 07:00 11:48 WBC (4.50-10.00) X 10*3/uL Immature Gran # (0.00-0.04) X 10*3/uL Neutrophils # (1.80-7.70) X 10*3/uL Lymphocytes # (0.90-5.00) X 10*3/uL Eosinophils # (0.04-0.35) X 10*3/uL D-Dimer (<0.60) mg/L FEU Anion Gap 15.40 H (4.00-12.00) mmol/L BUN 42.6 H (9.0-27.0) mg/dL BUN/Creatinine Ratio 38.73 H (12.00-20.00) Ratio Glucose 216 H (70-110) mg/dL POC Glucose (mg/dL) 211 H 260 H (75-99) mg/dL AST 46 H (14-35) U/L Alkaline Phosphatase 36 L (41-126) U/L Lactate Dehydrogenase 643 H (120-246) U/L C-Reactive Protein 21.80 H (0.00-0.80) mg/dL Albumin 3.6 L (3.8-4.9) g/dL Albumin/Globulin Ratio 1.20 L (1.60-3.17) g/dL 03/25/21 Range/Units 17:09 WBC (4.50-10.00) X 10*3/uL Immature Gran # (0.00-0.04) X 10*3/uL Neutrophils # (1.80-7.70) X 10*3/uL Lymphocytes # (0.90-5.00) X 10*3/uL Eosinophils # (0.04-0.35) X 10*3/uL D-Dimer (<0.60) mg/L FEU Anion Gap (4.00-12.00) mmol/L BUN (9.0-27.0) mg/dL BUN/Creatinine Ratio (12.00-20.00) Ratio Glucose (70-110) mg/dL POC Glucose (mg/dL) 313 H (75-99) mg/dL AST (14-35) U/L Alkaline Phosphatase (41-126) U/L Lactate Dehydrogenase (120-246) U/L C-Reactive Protein (0.00-0.80) mg/dL Albumin (3.8-4.9) g/dL Albumin/Globulin Ratio (1.60-3.17) g/dL Microbiology - Last 24 Hours (Table) 03/24/21 03:58 Blood Culture - Preliminary Blood No Growth after 24 hours 03/24/21 03:43 Blood Culture - Preliminary Blood No Growth after 24 hours Assessment and Plan Assessment: Acute respiratory failure with hypoxia secondary to COVID 19 pneumonia in non- vaccinated person -Patient tested positive on 03/23/2021 -Continue dexamethasone -Patient not a candidate of Remdesivir per pulmonary medicine -Continue vitamin C, Vitamin D, and Zinc. -Continue azithromycin and ceftriaxone -DVT prophylaxis with Lovenox. -Strict Droplet plus Contact precautions -Appreciate input from pulmonary medicine Acute kidney injury, likely secondary to poor oral intake, improving -Initial labs revealed BUN of 40, creatinine of 1.38, and GFR 51 this improved after IV fluids given in ER with BUN of 35.7, creatinine 1.2, and GFR of 60.5. -We will continue to monitor with repeat a.m. labs. Type II lxu-xpifglt-orxtimucq diabetes mellitus Hold Glucophage in place patient on glycemic protocol with NovoLog sliding scale. Hypertension Monitor vital signs and continue daily medication regimen with lisinopril. Hyperlipidemia Continue daily medication regimen with atorvastatin 10 mg daily. CODE STATUS: Full code DVT prophylaxis: Lovenox Discussed with: Patient, patient's , and RN Anticipated discharge date: Clinical course to determine Anticipated discharge place: Home A total of 45 minutes was spent on the care of this complex patient more than 50% of the time was spent in counseling and care coordination.
[2021-03-25 20:19] LABS: Glucose,Whole Blood 268 mg/dL (75-99)
[2021-03-25] MEDS: ENOXAPARIN 40 MG/0.4 ML SYRINGE SQ SCH (20:35)
[2021-03-26] MEDS: SODIUM CHLORIDE 0.9% 1,000 ML IV SCH ×2 (04:38→21:32)
[2021-03-26 07:31] LABS: Glucose,Whole Blood 172 mg/dL (75-99)
[2021-03-26] MEDS: ALBUTEROL HFA INHALER INHALATION PRN ×3 (07:31→15:59)
[2021-03-26] MEDS: ATORVASTATIN 10 MG TAB PO SCH (08:40)
[2021-03-26] MEDS: lisinopriL 10 MG TAB PO SCH (08:40)
[2021-03-26] MEDS: ASCORBIC ACID 500 MG TAB PO SCH (08:41)
[2021-03-26] MEDS: INSULIN ASPART (NovoLOG) 100 UNIT/ML VIAL SQ SCH ×4 (08:41→21:56)
[2021-03-26] MEDS: DEXAMETHASONE SOD PHOSPHATE 10 MG/ML 1 ML VIAL IVP SCH (08:41)
[2021-03-26] MEDS: CHOLECALCIFEROL 25 MCG (1000 IU) TABLET PO SCH (08:41)
[2021-03-26] MEDS: ZINC SULFATE 220 MG CAP PO SCH (08:41)
[2021-03-26] MEDS: PANTOPRAZOLE 40 MG TABLET PO SCH (08:41)
[2021-03-26 11:17] LABS: Glucose,Whole Blood 307 mg/dL (75-99)
[2021-03-26 11:24] LABS: HCT 44.8 % (39.0-53.0); HGB 15.5 gm/dL (13.0-17.5); MCH 31.2 pg (25.0-35.0); MCHC 34.5 g/dL (31.0-37.0); MCV 90.4 fL (80.0-100.0); Mean Platelet Volume 7.8; Platelet Count 323 k/uL (150-450); Poikilocytosis Slight; RBC 4.96 m/uL (4.30-5.90); RDW 13.6 % (11.5-15.5); WBC 13.2 k/uL (3.8-10.6)
[2021-03-26 11:41] LABS: Magnesium 2.2 mg/dL (1.6-2.3)
[2021-03-26 11:42] LABS: ALT 48 U/L (4-49); AST 64 U/L (17-59); African American GFR (CKD) >90 (>60 ml/min/1.73 sqM); Albumin 3.3 g/dL (3.5-5.0); Albumin/Globulin Ratio 1.1; Alkaline Phosphatase 40 U/L (38-126); Anion Gap 8 mmol/L; Blood Urea Nitrogen 43 mg/dL (9-20); Calcium 8.9 mg/dL (8.4-10.2); Carbon Dioxide 24 mmol/L (22-30); Chloride 102 mmol/L (98-107); Glucose 293 mg/dL (74-99); Non-African American GFR(CKD) 83 (>60 ml/min/1.73 sqM); Potassium 4.8 mmol/L (3.5-5.1); Sodium 134 mmol/L (137-145); Total Bilirubin 0.5 mg/dL (0.2-1.3); Total Protein 6.3 g/dL (6.3-8.2)
[2021-03-26] MEDS: AZITHROMYCIN 500 MG in SODIUM CHLORIDE 0.9% 250 ML IVPB SCH (13:44)
[2021-03-26 16:14] LABS: Glucose,Whole Blood 287 mg/dL (75-99)
--- NOTE | 2021-03-26 16:38 | P.PN ---
Subjective Progress Note Date: 03/26/21 Principal diagnosis: COVID-19 pneumonia 71-year-old white male patient with past medical history of diabetes mellitus type II who presented to the emergency department with the one week history of cough, headaches. His initial symptoms started as what felt like a chest cold, and became progressive. Patient follows with Dr. Malik. His cough is nonproductive. His had no nausea vomiting or diarrhea, no abdominal pain. She tested positive for COVID-19 in the emergency department, and his SpO2 upon presentation was 75% on room air. His chest x-ray showed patchy bilateral pneumonia. D-dimer was elevated at greater than 34.1, and CTA chest was completed showing no evidence of pulmonary embolism, and extensive patchy bilateral pneumonia with mediastinal and bronchial adenopathy and small right pleural effusion. She is currently on 8 L of oxygen his pulse ox is 88-90%, he is in sinus mechanism slightly tachycardic with a rate of 105 BPM, afebrile, he is awaiting a bed on medical surgical floor. He is awake and alert, oriented 3, dyspneic, but appears to be in no acute distress. Started on Decadron 6 mg daily, he is started on vitamins C, D, and zinc, and prophylactic dose Lovenox. On 03/25/2021 patient seen in follow-up on medical surgical floor, he is awake and alert, breathing comfortably, he is currently up to 10 L of oxygen pulse ox is 92%. No fever or chills. Mild cough, no chest discomfort. Chest x-ray today shows patchy infiltrates bilaterally, no significant change compared to last chest x-ray. Afebrile, overall patient states he feels better. His labs have been reviewed, white blood cell count is 11.7, hemoglobin is 15.4, d-dimer is down to 3.9, sodium is 137, potassium 4.5, BUN is 42, creatinine is 1.1, LDH is 643, CRP is 21.8. Troponin was negative at less than 0.012, BNP was 144. Pro-calcitonin level was elevated at 1.51 was placed on empiric antibiotic coverage with a combination of azithromycin and Rocephin The patient is seen today 03/26/2021 in follow-up on the regular medical floor. Currently sitting up in a chair at the bedside. Awake and alert in no acute distress. He is still requiring 8 L high flow nasal cannula to maintain O2 saturations at 91%. No worsening shortness of breath, cough or congestion. A bit better today compared to yesterday. He's been afebrile. Hemodynamically stable. Blood cultures reveal no growth. Sputum culture reveals no growth. White count 13.2. Hemoglobin 15.5. Sodium 134. Potassium 4.8. Creatinine 0.93. He remains on ceftriaxone and azithromycin. Continued on Decadron, Lovenox, vitamin supplements. Objective - Vital Signs Vital signs: Vital Signs Temp 97.7 F 03/26/21 14:54 Pulse 102 H 03/26/21 14:54 Resp 20 03/26/21 14:54 BP 103/64 03/26/21 14:54 Pulse Ox 91 L 03/26/21 14:54 Intake & Output 03/25/21 03/26/21 03/26/21 18:59 06:59 18:59 Intake Total 100 Balance 100 Intake: Oral 100 Other: Voiding Method Toilet Toilet Toilet # Voids 2 2 2 - Exam GENERAL EXAM: Alert, very pleasant, 71-year-old male patient, on 8 L of oxygen and in no acute distress HEAD: Normocephalic/atraumatic. EYES: Normal reaction of pupils, equal size. Conjunctiva pink, sclera white. NOSE: Clear with pink turbinates. THROAT: No erythema or exudates. NECK: No masses, no JVD, no thyroid enlargement, no adenopathy. CHEST: No chest wall deformity. Symmetrical expansion. LUNGS: Equal air entry with diffuse crackles bilaterally CVS: Regular rate and rhythm, normal S1 and S2, no gallops, no murmurs, no rubs ABDOMEN: Soft, nontender. No hepatosplenomegaly, normal bowel sounds, no guarding or rigidity. EXTREMITIES: No clubbing, no edema, no cyanosis, 2+ pulses and upper and lower extremities. MUSCULOSKELETAL: Muscle strength and tone normal. SPINE: No scoliosis or deformity SKIN: No rashes CENTRAL NERVOUS SYSTEM: No focal deficits, tone is normal in all 4 extremities. PSYCHIATRIC: Alert and oriented -3. Appropriate affect. Intact judgment and insight. - Labs CBC & Chem 7: 03/26/21 11:05 03/26/21 11:05 Labs: Abnormal Lab Results - Last 24 Hours (Table) 03/25/21 03/25/21 03/26/21 Range/Units 17:09 20:18 07:28 WBC (3.8-10.6) k/uL Sodium (137-145) mmol/L BUN (9-20) mg/dL Glucose (74-99) mg/dL POC Glucose (mg/dL) 313 H 268 H 172 H (75-99) mg/dL AST (17-59) U/L Albumin (3.5-5.0) g/dL 03/26/21 03/26/21 03/26/21 Range/Units 11:05 11:05 11:11 WBC 13.2 H (3.8-10.6) k/uL Sodium 134 L (137-145) mmol/L BUN 43 H (9-20) mg/dL Glucose 293 H (74-99) mg/dL POC Glucose (mg/dL) 307 H (75-99) mg/dL AST 64 H (17-59) U/L Albumin 3.3 L (3.5-5.0) g/dL 03/26/21 Range/Units 16:11 WBC (3.8-10.6) k/uL Sodium (137-145) mmol/L BUN (9-20) mg/dL Glucose (74-99) mg/dL POC Glucose (mg/dL) 287 H (75-99) mg/dL AST (17-59) U/L Albumin (3.5-5.0) g/dL Microbiology - Last 24 Hours (Table) 03/26/21 07:36 Sputum Culture - Preliminary Sputum 03/24/21 03:43 Blood Culture - Preliminary Blood No Growth after 48 hours 03/24/21 03:58 Blood Culture - Preliminary Blood No Growth after 48 hours Assessment and Plan Assessment: 1 Acute hypoxic respiratory failure related to acute COVID-19 pneumonia, patie nt presented with 1 week history of symptoms with cough, shortness of breath, headaches. Tested positive in the emergency department on 03/23/2021. Patient is not a candidate for Remdesivir related to his increased oxygen demand, patient currently on 8 L of oxygen. Will be treated with a combination of steroids, vitamins, and prophylactic anticoagulation 2 Elevated d-dimer with no CTA evidence of pulmonary embolism, we will check lower extremity Dopplers 3 Acute kidney injury 4 Mild lactic acidosis, patient was given IV fluid bolus in the emergency department, repeat lactic acid is pending 5 Diabetes mellitus type 2 6 Elevated pro-calcitonin with the possibility of bacterial infection and possibility of bacterial pneumonia Plan: The patient was seen and evaluated by Dr. Barfield Continue to titrate the FiO2 as tolerated Continue Lovenox, Decadron, vitamin supplements Continue antibiotics for now We will continue to follow I, the cosigning physician, performed a history & physical examination of the patient. Lungs sounds bibasilar crackles. Maintaining good O2 saturations in the 90s on 8 L high flow nasal cannula. I discussed the assessment and plan of care with my nurse practitioner, Raegan Meyers. I attest to the above note as dictated by her.
[2021-03-26 17:01] LABS: Glucose,Whole Blood 266 mg/dL (75-99)
--- NOTE | 2021-03-26 17:31 | CT ---
EXAMINATION TYPE: CT brain wo con for TPA DATE OF EXAM: 03/26/2021 COMPARISON: None HISTORY: Left sided Weakness. CT DLP: 1226.6 mGycm Automated exposure control for dose reduction was used. Images obtained of the brain without contrast. There is cerebral cortical atrophy. There is no mass effect nor midline shift. There is no sign of in tracranial hemorrhage. There is normal aeration of the mastoid sinuses. 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 IMPRESSION: Cerebral atrophy. No acute intracranial abnormality. Previous surgery.
[2021-03-26 17:37] LABS: Basophils % (A) 0 %; Eosinophils % (A) 0 %; HCT 41.8 % (39.0-53.0); HGB 14.3 gm/dL (13.0-17.5); Lymphocytes # (A) 0.5 k/uL (1.0-4.8); Lymphocytes % (A) 4 %; MCHC 34.2 g/dL (31.0-37.0); MCV 90.5 fL (80.0-100.0); Mean Platelet Volume 8.4; Monocytes # (A) 0.6 k/uL (0-1.0); Monocytes % (A) 5 %; Neutrophils # (A) 12.8 k/uL (1.3-7.7); Neutrophils % (A) 91 %; Platelet Count 285 k/uL (150-450); RBC 4.61 m/uL (4.30-5.90); RDW 12.9 % (11.5-15.5); WBC 14.1 k/uL (3.8-10.6)
[2021-03-26 17:44] LABS: ALT 45 U/L (4-49); AST 52 U/L (17-59); African American GFR (CKD) 85 (>60 ml/min/1.73 sqM); Albumin 3.1 g/dL (3.5-5.0); Alkaline Phosphatase 39 U/L (38-126); Anion Gap 7 mmol/L; Blood Urea Nitrogen 43 mg/dL (9-20); Calcium 8.4 mg/dL (8.4-10.2); Carbon Dioxide 24 mmol/L (22-30); Chloride 103 mmol/L (98-107); Glucose 279 mg/dL (74-99); Non-African American GFR(CKD) 74 (>60 ml/min/1.73 sqM); Sodium 134 mmol/L (137-145); Total Bilirubin 0.4 mg/dL (0.2-1.3); Total Protein 6.1 g/dL (6.3-8.2)
[2021-03-26] MEDS ORDERED: ASPIRIN 81 MG PO STA (17:53)
[2021-03-26 18:09] LABS: INR 0.9 (<1.2); Prothrombin Time 10.1 sec (9.0-12.0)
[2021-03-26 18:11] LABS: Partial Thromboplastin Time 18.2 sec (22.0-30.0)
--- NOTE | 2021-03-26 18:23 | CT ---
EXAMINATION TYPE: CT angio head neck DATE OF EXAM: 03/26/2021 COMPARISON: None HISTORY: Left sided Weakness. CT DLP: 721.1 mGycm Automated exposure control for dose reduction was used. CONTRAST: Performed with IV Contrast, patient injected with 65 mL of Isovue 370. Images obtained from the thoracic inlet to the vertex of the brain with IV contrast. There are 3-D po st processed images. There is extensive pulmonary groundglass interstitial edema in the visualized lung gotti. There is n ormal branching pattern of the great vessels on the aortic arch. There is arterial flow in both subcl jessica arteries. There is arterial flow in the common internal and external carotid arteries bilateral ly. There is fairly wide patency of the carotid artery bifurcations. There is minimal plaque at the c arotid artery bifurcations and less than 15% stenosis. There is arterial flow in both vertebral arter ies. There is arterial flow in the anterior middle and posterior cerebral arteries. There is no mass effec t. There is no evidence of intracranial aneurysm or neovascularity. There is arterial flow in the patti tebrobasilar artery system. There is apparent significant luminal narrowing of the proximal right mid dle cerebral artery. No significant flow seen in the A1 segment of the right anterior cerebral artery . The right anterior cerebral artery appears to fill significantly through the anterior communicating artery. There is decreased contrast density in the intracranial right internal carotid artery. There is normal contrast enhancement of the venous sinuses. IMPRESSION: There is 1.5 cm segment of significant stenosis of the proximal right middle cerebral artery. No sign ificant flow seen in the A1 segment of the right anterior cerebral artery. Right anterior cerebral ar danish appears to fill through the anterior communicating artery. There is diminished contrast density in the intracranial right internal carotid artery suggestive of decreased flow.
[2021-03-26 18:31] LABS: Glucose,Whole Blood 242 mg/dL (75-99)
[2021-03-26] MEDS ORDERED: SODIUM CHLORIDE 0.9% 1,000 ML IV ONE (18:44)
[2021-03-26] MEDS: ENOXAPARIN 40 MG/0.4 ML SYRINGE SQ SCH (18:54)
[2021-03-26] MEDS ORDERED: ASPIRIN 300 MG SUPP RECTAL STA (18:55)
[2021-03-26] MEDS ORDERED: TICAGRELOR 90 MG TAB PO SCH (19:00)
[2021-03-26 19:22] LABS: ABG Base Excess -1.1 mmol/L; ABG HCO3 23 mmol/L (21-25); ABG Oxygen Saturation 93.6 % (94-97); ABG PCO2 32 mmHg (35-45); ABG PH 7.46 (7.35-7.45); ABG PO2 69 mmHg (83-108); ABG TCO2 24 mmol/L (19-24); Allen Test Performed? Yes
[2021-03-26] MEDS: ATORVASTATIN 80 MG TAB PO SCH (19:30)
[2021-03-26 19:42] LABS: Glucose,Whole Blood 213 mg/dL (75-99)
[2021-03-26] MEDS ORDERED: ALTEPLASE BOLUS FOR STROKE 9 MG in EMPTY SYRINGE 1 SYR IV STA (20:22)
[2021-03-26] MEDS ORDERED: ALTEPLASE 79 MG in EMPTY BAG 1 BAG IV STA (20:22)
--- NOTE | 2021-03-26 20:37 | P.PN ---
Subjective Progress Note Date: 03/26/21 (delayed charting seen at 1045) Principal diagnosis: shortness of breath Patient is a 71-year-old male with a history of diabetes mellitus and hypertension who presented to the emergency department with complaints of fevers, headache, muscle aches and poor appetite. In the emergency department he underwent an extensive evaluation. On arrival he was found to be satting 75% on room air and had a heart rate of 120. Urinalysis is remarkable for lactic acid of 2.5, creatinine 1.38, and COVID-19 testing was positive. He underwent a CTA of the chest which showed no evidence of pulmonary embolism but did demonstrate extensive patchy bilateral pneumonia. He was admitted and was started on dexamethasone and IV fluids. He was seen by pulmonary critical care who recommended lower extremity venous Dopplers. These were completed without evidence of DVT. He did have a pro-calcitonin drawn which was elevated at 1.51. Therefore was kept on Rocephin and Zithromax as bacterial coinfection could not be eliminated. He continued to require high flow nasal cannula. His d-dimer improved. Patient seen and examined at 11:30 AM. He states that his shortness of breath has improved significantly since admission and is feeling better. We discussed that he will need to be down to 5 L nasal cannula prior to being to discharge. He denies any chest pain, his cough is much better, he is producing some mucus now. He states he is eating and drinking well though he did not eat for 3 days prior to admission. He overall is feeling much improved. He was sitting in the chair most the morning. He is unable to lie on his stomach due to abdominal girth but has underlying medical side and will continue to do so. General: non toxic, no distress, appears at stated age Derm: warm, dry Head: atraumatic, normocephalic, symmetric Eyes: EOMI, no lid lag, anicteric sclera Mouth: no lip lesion, mucus membranes moist Cardiovascular: S1S2 reg, no murmur, positive posterior tibial pulse bilateral, Lungs: Coarse breath sounds bilateral, no rhonchi, no rales , no accessory muscle use speaking in full sentences Abdominal: soft, nontender to palpation, no guarding, no appreciable organomegaly Ext: no gross muscle atrophy, no edema, no contractures Neuro: CN II-XI grossly intact, no focal neuro deficits Psych: Alert, oriented, appropriate affect COVID-19 pneumonitis Acute hypoxic respiratory failure -Continue with dexamethasone -Pulmonary recommendations: Not a candidate for Remdesivir -Continue vitamin C, vitamin D, zinc -Unable to rule out bacterial component with pro-calcitonin of 1.5 and will continue with Zithromax and Rocephin. Attempt sputum culture. -DVT prophylaxis: Lovenox Diabetes mellitus type II -Hold Glucophage -Sliding-scale insulin -Follow blood sugars - A1C 7.9 Hypertension -Lisinopril -Follow blood pressures Dyslipidemia -Atorvastatin ALLEGRA, resolved Lactic acidosis, resolved DVT prophylaxis: Lovenox Discussed with: Patient, nursing Anticipated discharge: undetermined Anticipated discharge place: home A total of 35 minutes was spent on the care of this complex patient more than 50% of the time was spent in counseling and care coordination. I was called by nurse Liliana at just after 4 pm that patient had left sided facial droop and COD stroke called. I asked for CT head and CTA head and neck while awaiting call back from stroke network. Per nursing mentating well, but not moving let arm and with significant left facial droop. Orders given fro transfer to , ASA to be given, and await recs from stroke network. Per Nursing Stroke network recommended ASA, Brillenta, IVF fluid, hold BP medications I received another call from nursing just prior to 7 pm that patient failed bedside swallow with worsening Oxygen requirements, CXR ordered. I went to see patient as soon as able and A-team activated. ABG ordered with Pa O2 66 on 15L NRB and 15L NC, CXR ordered and pending. Patient was more lethargic and whad with drawl to pain in left lower extremity with triple flexion response, withdrawal to pain in left upper extremity, but cannot move LLE or LUE when asked, left sided facial drop with tongue deviation to the left noted. and I spoke with Dr. Serrano who recommended to call the stroke team again as patient like to benefit from intervention. Care handed off to my partner Dr. Orantes Objective - Vital Signs Vital signs: Vital Signs Temp 97.7 F 03/26/21 14:54 Pulse 102 H 03/26/21 14:54 Resp 20 03/26/21 14:54 BP 103/64 03/26/21 14:54 Pulse Ox 91 L 03/26/21 14:54 Intake & Output 03/26/21 03/26/21 03/27/21 06:59 18:59 06:59 Intake Total 100 Balance 100 Intake: Oral 100 Other: Voiding Method Toilet Toilet # Voids 2 2 - Labs CBC & Chem 7: 03/26/21 17:00 03/26/21 17:00 Labs: Abnormal Lab Results - Last 24 Hours (Table) 03/25/21 03/26/21 03/26/21 Range/Units 20:18 07:28 11:05 WBC (3.8-10.6) k/uL Neutrophils # (1.3-7.7) k/uL Lymphocytes # (1.0-4.8) k/uL APTT (22.0-30.0) sec ABG pH (7.35-7.45) ABG pCO2 (35-45) mmHg ABG pO2 (83-108) mmHg ABG O2 Saturation (94-97) % Sodium 134 L (137-145) mmol/L BUN 43 H (9-20) mg/dL Glucose 293 H (74-99) mg/dL POC Glucose (mg/dL) 268 H 172 H (75-99) mg/dL AST 64 H (17-59) U/L Total Protein (6.3-8.2) g/dL Albumin 3.3 L (3.5-5.0) g/dL 03/26/21 03/26/21 03/26/21 Range/Units 11:05 11:11 16:11 WBC 13.2 H (3.8-10.6) k/uL Neutrophils # (1.3-7.7) k/uL Lymphocytes # (1.0-4.8) k/uL APTT (22.0-30.0) sec ABG pH (7.35-7.45) ABG pCO2 (35-45) mmHg ABG pO2 (83-108) mmHg ABG O2 Saturation (94-97) % Sodium (137-145) mmol/L BUN (9-20) mg/dL Glucose (74-99) mg/dL POC Glucose (mg/dL) 307 H 287 H (75-99) mg/dL AST (17-59) U/L Total Protein (6.3-8.2) g/dL Albumin (3.5-5.0) g/dL 03/26/21 03/26/21 03/26/21 Range/Units 16:59 17:00 17:00 WBC 14.1 H (3.8-10.6) k/uL Neutrophils # 12.8 H (1.3-7.7) k/uL Lymphocytes # 0.5 L (1.0-4.8) k/uL APTT 18.2 L (22.0-30.0) sec ABG pH (7.35-7.45) ABG pCO2 (35-45) mmHg ABG pO2 (83-108) mmHg ABG O2 Saturation (94-97) % Sodium (137-145) mmol/L BUN (9-20) mg/dL Glucose (74-99) mg/dL POC Glucose (mg/dL) 266 H (75-99) mg/dL AST (17-59) U/L Total Protein (6.3-8.2) g/dL Albumin (3.5-5.0) g/dL 03/26/21 03/26/21 03/26/21 Range/Units 17:00 18:25 19:18 WBC (3.8-10.6) k/uL Neutrophils # (1.3-7.7) k/uL Lymphocytes # (1.0-4.8) k/uL APTT (22.0-30.0) sec ABG pH 7.46 H (7.35-7.45) ABG pCO2 32 L (35-45) mmHg ABG pO2 69 L (83-108) mmHg ABG O2 Saturation 93.6 L (94-97) % Sodium 134 L (137-145) mmol/L BUN 43 H (9-20) mg/dL Glucose 279 H (74-99) mg/dL POC Glucose (mg/dL) 242 H (75-99) mg/dL AST (17-59) U/L Total Protein 6.1 L (6.3-8.2) g/dL Albumin 3.1 L (3.5-5.0) g/dL 03/26/21 Range/Units 19:40 WBC (3.8-10.6) k/uL Neutrophils # (1.3-7.7) k/uL Lymphocytes # (1.0-4.8) k/uL APTT (22.0-30.0) sec ABG pH (7.35-7.45) ABG pCO2 (35-45) mmHg ABG pO2 (83-108) mmHg ABG O2 Saturation (94-97) % Sodium (137-145) mmol/L BUN (9-20) mg/dL Glucose (74-99) mg/dL POC Glucose (mg/dL) 213 H (75-99) mg/dL AST (17-59) U/L Total Protein (6.3-8.2) g/dL Albumin (3.5-5.0) g/dL Microbiology - Last 24 Hours (Table) 03/26/21 07:36 Sputum Culture - Preliminary Sputum 03/24/21 03:43 Blood Culture - Preliminary Blood No Growth after 48 hours 03/24/21 03:58 Blood Culture - Preliminary Blood No Growth after 48 hours
[2021-03-26] MEDS ORDERED: LABETALOL 5 MG/ML VIAL MDV IVP PRN (20:38)
--- NOTE | 2021-03-26 21:06 | P.PN ---
Progress Note - Text Progress Note Date: 03/26/21 The patient was seen at the bedside at 1910 for concerns regarding an evolving stroke (initial NIH 22 at 1650). The patient's mentation gradually worsened and he developed worsening neglect and weakness of the L side with L lower facial droop and tongue deviation to the left. A thorough chart review was performed and the case was discussed with the medical staff involved in the patient's care. The patient's last known well was established between 1610 and 1630 as the patient was seen by multiple staff members who noted that he was AAOx3 and aside from his respiratory complaints, had no other issues to report. 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 The patient was immediately taken to the MICU and tPA was ordered. Discussed the case with the patient's regarding the risks vs benefits of tPA administration. The consented to the tPA which was subsequently administered.
[2021-03-26] MEDS ORDERED: SODIUM CHLORIDE 0.9% 50 ML MINI-BAG IV ONE ×2 (21:21→21:39)
[2021-03-26 21:28] LABS: Glucose,Whole Blood 208 mg/dL (75-99)
[2021-03-27 04:17] LABS: Basophils % (A) 0 %; Eosinophils % (A) 0 %; HCT 41.8 % (39.0-53.0); HGB 14.2 gm/dL (13.0-17.5); Lymphocytes # (A) 0.5 k/uL (1.0-4.8); Lymphocytes % (A) 4 %; MCH 30.7 pg (25.0-35.0); MCHC 33.9 g/dL (31.0-37.0); MCV 90.5 fL (80.0-100.0); Mean Platelet Volume 7.9; Monocytes # (A) 0.4 k/uL (0-1.0); Monocytes % (A) 3 %; Neutrophils % (A) 92 %; Platelet Count 248 k/uL (150-450); RBC 4.62 m/uL (4.30-5.90); RDW 12.9 % (11.5-15.5)
[2021-03-27] MEDS: SODIUM CHLORIDE 0.9% 1,000 ML IV SCH ×2 (04:18→16:40)
[2021-03-27 04:42] LABS: African American GFR (CKD) >90 (>60 ml/min/1.73 sqM); Anion Gap 9 mmol/L; Blood Urea Nitrogen 34 mg/dL (9-20); Calcium 8.3 mg/dL (8.4-10.2); Carbon Dioxide 20 mmol/L (22-30); Chloride 108 mmol/L (98-107); Glucose 198 mg/dL (74-99); Non-African American GFR(CKD) 82 (>60 ml/min/1.73 sqM); Potassium 4.3 mmol/L (3.5-5.1); Sodium 137 mmol/L (137-145)
[2021-03-27 06:57] LABS: Glucose,Whole Blood 206 mg/dL (75-99)
[2021-03-27] MEDS: PANTOPRAZOLE 40 MG TABLET PO SCH (06:59)
[2021-03-27] MEDS: INSULIN ASPART (NovoLOG) 100 UNIT/ML VIAL SQ SCH ×4 (07:07→21:42)
[2021-03-27 07:19] LABS: Phosphorus 3.3 mg/dL (2.5-4.5)
[2021-03-27] MEDS ORDERED: ASPIRIN 81 MG PO SCH (09:00)
[2021-03-27] MEDS ORDERED: ATORVASTATIN 40 MG TAB PO SCH (09:00)
--- NOTE | 2021-03-27 10:09 | P.CNNES ---
History of Present Illness Consult date: 03/27/21 Requesting physician: Geovanna Ni Reason for Consult: cva History of Present Illness: This is a 71-year-old gentleman with medical history of diabetes mellitus, hypertension who presented emergency department on 03/24/2021 for fever, muscle aches poor appetite shortness of breath. Patient was found to have COVID-19 pneumonia. Neurology is consulted for stroke. Some of the history is obtained from medical record and primary physician. Per the primary team the patient had left-sided facial droop as well as left arm weakness progressed to left lower extremity weakness on 03/26/2021 in the afternoon. Per the primary team, his last normal is around 1611 on 03/26/2021. As a result a stroke code was katty vidales. Per the primary team note, patient's NIH was a 22 at 1650. I reviewed the the patient charge chart and it is documented the patient initial NIH was 24 and repeat was 28 (at 1945). The NIH stroke scare of 28: points scored for 1 LOC commands, 2 best gaze, 3 visual field, 2 facial palsy, 4 left arm, 2 right arm, 4 left leg, 3 right leg, 1 limb ataxia, 2 sensory, 1 best language, 1 dysarthria , [address] of the head is reported as cerebral atrophy. No acute intracranial abnormality. Previous surgery. While CT angiography of the head and neck was reported as there is 0.5 cm segment of significant stenosis of the proximal right MCA cerebral artery. No significant flow seen in the A1 segment of the right anterior cerebral artery. Right anterior cerebral artery appears to fill through the anterior communicating artery. There is diminished contrast density in the intracranial right internal carotid artery suggestive of decreased flow. The primary team called me yesterday notify me that the the stroke team recommended to the nurse for the patient to receive aspirin, Bril inta, IV fluids and hold BP medications. I notified that the primary team to contact the stroke team again for consideration of intervention. He did and they reviewed the images. The primary team spoke with Dr. Katz and they the patient was a TPA candidate since he was within the window of 4 and half hours of last normal state. 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 Therefore patient was give IV tpa and was sent to ICU. Patient received IV TPA bolus of 9 mg (at 20:36) and the rest of the infusion was 79 mg (infusion ended at 21:36) Seems that the patient is on Lipitor 10 mg daily at home. There is no documentation that the patient is on any antiplatelets at home. Some of the workup in the hospital consisted of Blood pressure has been in ranging in the systolic of 100-120 and diastolic between 70s to 90's. Heart rate in the range of 90s to 100, respiratory rate of 20s to 30s small temperature of 97.7 pulse ox between 90s to 94 Recent blood blood cells 13,000, hemoglobin is 14.2, hematocrit is 41.8, platelets of 248,000. Sodium is 137, creatinine is up 0.94, serum glucose is 198, Hb A1c is 7.9 AST of 52 and ALT 45 Magnesium is 2.2 and phosphorus is 3.0. Coronavirus speech are detected on 03/24/2021 PT of 10.1, INR 0.9 and PTT of 18.2. I personally reviewed the CT of the head and I did not appreciate any acute subacute ischemia and no interpretable hemorrhage. There is motion artifact on the CT. The patient does have a craniotomy over the left frontal temporal region. Also I felt the right MCA is severely stenosis and there is possible faint flow. Review of Systems Review of system: The 12 point system was reviewed and apparent positive and negative per HPI. Past Medical History Past Medical History: Diabetes Mellitus, Hypertension History of Any Multi-Drug Resistant Organisms: None Reported Past Surgical History: No Surgical Hx Reported Additional Past Surgical History / Comment(s): fell off a truckload and hit head, surgery to remove pressure in 1987 Past Anesthesia/Blood Transfusion Reactions: No Reported Reaction Past Psychological History: No Psychological Hx Reported Smoking Status: Never smoker Past Alcohol Use History: None Reported Past Drug Use History: None Reported - Past Family History Mother Family Medical History: Diabetes Mellitus Medications and Allergies Home Medications Medication Instructions Recorded Confirmed Type Atorvastatin [Lipitor] 10 mg PO DAILY 03/24/21 03/24/21 History Cetirizine HCl [Zyrtec] 10 mg PO DAILY 03/24/21 03/24/21 History Dapagliflozin/Metformin HCl 1 tab PO DAILY 03/24/21 03/24/21 History [Xigduo Xr 10 mg-1,000 mg Tab] Magnesium Oxide 400 mg PO DAILY 03/24/21 03/24/21 History Multivitamins, Thera [Multivitamin 1 tab PO DAILY 03/24/21 03/24/21 History (formulary)] Omeprazole 20 mg PO DAILY 03/24/21 03/24/21 History lisinopriL 10 mg PO DAILY 03/24/21 03/24/21 History Allergies Allergy/AdvReac Type Severity Reaction Status Date / Time Penicillins Allergy Rash/Hives Verified 03/24/21 07:39 Physical Examination - Vital Signs Vital Signs: Vital Signs Temp Pulse Pulse Resp BP BP Pulse Ox 03/27/21 07:00 96 19 119/78 94 L 03/27/21 06:30 90 22 119/78 90 L 03/27/21 06:00 98 32 H 127/90 92 L 03/27/21 05:30 101 H 30 H 109/72 90 L 03/27/21 05:00 93 22 120/79 95 03/27/21 04:30 94 35 H 119/79 93 L 03/27/21 04:00 97.7 F 89 41 H 125/81 93 L 03/27/21 03:30 94 38 H 126/81 94 L 03/27/21 03:00 100 38 H 103/63 94 L 03/27/21 02:30 88 33 H 132/83 92 L 03/27/21 02:00 92 38 H 137/86 94 L 03/27/21 01:30 109 H 27 H 139/88 95 03/27/21 01:00 95 23 135/87 93 L 03/27/21 00:30 104 H 24 118/79 94 L 03/27/21 00:00 98 F 91 30 H 119/73 91 L 03/26/21 23:30 98 F 101 H 22 118/76 90 L 03/26/21 23:00 108 H 32 H 124/80 92 L 03/26/21 22:30 104 H 29 H 119/73 95 03/26/21 22:15 97.6 F 101 H 33 H 119/73 95 03/26/21 22:00 97.6 F 101 H 39 H 120/74 91 L 03/26/21 21:45 97.6 F 106 H 23 111/74 90 L 03/26/21 21:30 97.6 F 115 H 39 H 112/74 92 L 03/26/21 21:15 97.6 F 106 H 22 112/74 90 L 03/26/21 21:00 97.8 F 105 H 39 H 121/79 94 L 03/26/21 20:45 97.8 F 110 H 28 H 133/74 89 L 03/26/21 19:00 89 26 H 124/67 93 L 03/26/21 18:10 99.0 F 93 26 H 106/74 93 L 03/26/21 14:54 97.7 F 102 H 20 103/64 91 L 03/26/21 09:44 98.1 F 100 22 110/72 91 L 03/26/21 08:41 100 22 Intake and Output 03/26/21 03/27/21 03/27/21 22:59 06:59 14:59 Intake Total 199 800 100 Output Total 730 950 125 Balance -531 -150 -25 Intake: IV 20 Invasive Line 3 10 Invasive Line 4 10 Intake, IV Titration 179 800 100 Amount Alteplase 79 mg In Empty 79 Bag 1 bag @ 79 mls/hr IV ONCE STA Rx#:[id number] Sodium Chloride 0.9% 1, 100 800 100 000 ml @ 100 mls/hr IV . Q10H [facility] Rx#:[id number] Output: Urine 730 950 125 Uretheral (Farley) 600 Other: Voiding Method Indwelling Catheter Indwelling Catheter Weight 96.6 kg GENERAL: The patient is lying in bed and is not in acute distress. CHEST: The heart rate is regular rate rhythm. No murmurs to auscultation. No carotid bruit bilaterally. LUNG: Clear to auscultation bilaterally no wheezing noted throughout. Not labored breathing. ABDOMEN/GI: Bowel sounds present in all 4 quadrants. No tenderness to palpation throughout. NEUROLOGICAL: Higher mental function: The patient is awake, alert, oriented to self and time. He states he is in the hospital. Patient is following simple commands. No aphasia. Has neglect to left side. Cranial nerves: The pupils are round, equal and reactive to light. Visual gotti is hard to assess is neglecting left side. Extraocular movement is in tact no nystagmus is noted. Facial sensation is hard to assess. The facial strength is moderate lower facial palsy. Mild to moderate dysarthria is noted. Shoulder shrug is normal bilaterally. Motor: Gait is deferred. The strength is lifting the right upper and lower extremity above gravity. While lower is 0/5. Normal bulk. Some decrease tone in left side. Cerebellum: Could not assess. Sensation: Sensation is normal to touch over the right and neglecting left. Reflexes (right/left): 2+ throughout. Plantars is upgoing over the left and mute over the right. Results - Laboratory Findings CBC and BMP: 03/27/21 03:32 03/27/21 03:31 Abnormal Lab Findings: Abnormal Labs 03/24/21 03/24/21 03/24/21 01:46 01:47 01:47 WBC 11.3 H Immature Gran # Neutrophils # 10.2 H Lymphocytes # 0.6 L Eosinophils # APTT D-Dimer >34.10 H ABG pH ABG pCO2 ABG pO2 ABG O2 Saturation Sodium Chloride Carbon Dioxide Anion Gap BUN Creatinine BUN/Creatinine Ratio Glucose POC Glucose (mg/dL) Hemoglobin A1c Plasma Lactic Acid Keshav Calcium AST Alkaline Phosphatase Lactate Dehydrogenase C-Reactive Protein Total Protein Albumin Albumin/Globulin Ratio Procalcitonin Coronavirus (PCR) Detected A 03/24/21 03/24/21 03/24/21 01:47 01:47 02:31 WBC Immature Gran # Neutrophils # Lymphocytes # Eosinophils # APTT D-Dimer ABG pH ABG pCO2 ABG pO2 ABG O2 Saturation Sodium 134 L Chloride Carbon Dioxide 19 L Anion Gap BUN 40 H Creatinine 1.38 H BUN/Creatinine Ratio Glucose 192 H POC Glucose (mg/dL) 182 H Hemoglobin A1c Plasma Lactic Acid Keshav 2.5 H* Calcium AST Alkaline Phosphatase Lactate Dehydrogenase C-Reactive Protein Total Protein Albumin Albumin/Globulin Ratio Procalcitonin Coronavirus (PCR) 03/24/21 03/24/21 03/24/21 03:20 07:45 07:45 WBC 12.32 H Immature Gran # Neutrophils # Lymphocytes # Eosinophils # APTT D-Dimer ABG pH ABG pCO2 ABG pO2 ABG O2 Saturation Sodium 133 L Chloride Carbon Dioxide 15.1 L Anion Gap 20.90 H BUN 35.7 H Creatinine BUN/Creatinine Ratio 29.75 H Glucose 201 H POC Glucose (mg/dL) Hemoglobin A1c Plasma Lactic Acid Keshav Calcium 8.6 L AST Alkaline Phosphatase Lactate Dehydrogenase C-Reactive Protein Total Protein Albumin Albumin/Globulin Ratio Procalcitonin 1.51 H Coronavirus (PCR) 03/24/21 03/24/21 03/24/21 07:45 08:38 11:45 WBC Immature Gran # Neutrophils # Lymphocytes # Eosinophils # APTT D-Dimer ABG pH ABG pCO2 ABG pO2 ABG O2 Saturation Sodium Chloride Carbon Dioxide Anion Gap BUN Creatinine BUN/Creatinine Ratio Glucose POC Glucose (mg/dL) 191 H 212 H Hemoglobin A1c 7.9 H Plasma Lactic Acid Keshav Calcium AST Alkaline Phosphatase Lactate Dehydrogenase C-Reactive Protein Total Protein Albumin Albumin/Globulin Ratio Procalcitonin Coronavirus (PCR) 03/24/21 03/24/21 03/25/21 16:36 20:46 06:08 WBC 11.71 H Immature Gran # 0.18 H Neutrophils # 10.17 H Lymphocytes # 0.77 L Eosinophils # 0.03 L APTT D-Dimer ABG pH ABG pCO2 ABG pO2 ABG O2 Saturation Sodium Chloride Carbon Dioxide Anion Gap BUN Creatinine BUN/Creatinine Ratio Glucose POC Glucose (mg/dL) 252 H 285 H Hemoglobin A1c Plasma Lactic Acid Keshav Calcium AST Alkaline Phosphatase Lactate Dehydrogenase C-Reactive Protein Total Protein Albumin Albumin/Globulin Ratio Procalcitonin Coronavirus (PCR) 03/25/21 03/25/21 03/25/21 06:08 06:08 07:00 WBC Immature Gran # Neutrophils # Lymphocytes # Eosinophils # APTT D-Dimer 3.91 H ABG pH ABG pCO2 ABG pO2 ABG O2 Saturation Sodium Chloride Carbon Dioxide Anion Gap 15.40 H BUN 42.6 H Creatinine BUN/Creatinine Ratio 38.73 H Glucose 216 H POC Glucose (mg/dL) 211 H Hemoglobin A1c Plasma Lactic Acid Keshav Calcium AST 46 H Alkaline Phosphatase 36 L Lactate Dehydrogenase 643 H C-Reactive Protein 21.80 H Total Protein Albumin 3.6 L Albumin/Globulin Ratio 1.20 L Procalcitonin Coronavirus (PCR) 03/25/21 03/25/21 03/25/21 11:48 17:09 20:18 WBC Immature Gran # Neutrophils # Lymphocytes # Eosinophils # APTT D-Dimer ABG pH ABG pCO2 ABG pO2 ABG O2 Saturation Sodium Chloride Carbon Dioxide Anion Gap BUN Creatinine BUN/Creatinine Ratio Glucose POC Glucose (mg/dL) 260 H 313 H 268 H Hemoglobin A1c Plasma Lactic Acid Keshav Calcium AST Alkaline Phosphatase Lactate Dehydrogenase C-Reactive Protein Total Protein Albumin Albumin/Globulin Ratio Procalcitonin Coronavirus (PCR) 03/26/21 03/26/21 03/26/21 07:28 11:05 11:05 WBC 13.2 H Immature Gran # Neutrophils # Lymphocytes # Eosinophils # APTT D-Dimer ABG pH ABG pCO2 ABG pO2 ABG O2 Saturation Sodium 134 L Chloride Carbon Dioxide Anion Gap BUN 43 H Creatinine BUN/Creatinine Ratio Glucose 293 H POC Glucose (mg/dL) 172 H Hemoglobin A1c Plasma Lactic Acid Keshav Calcium AST 64 H Alkaline Phosphatase Lactate Dehydrogenase C-Reactive Protein Total Protein Albumin 3.3 L Albumin/Globulin Ratio Procalcitonin Coronavirus (PCR) 03/26/21 03/26/21 03/26/21 11:11 16:11 16:59 WBC Immature Gran # Neutrophils # Lymphocytes # Eosinophils # APTT D-Dimer ABG pH ABG pCO2 ABG pO2 ABG O2 Saturation Sodium Chloride Carbon Dioxide Anion Gap BUN Creatinine BUN/Creatinine Ratio Glucose POC Glucose (mg/dL) 307 H 287 H 266 H Hemoglobin A1c Plasma Lactic Acid Keshav Calcium AST Alkaline Phosphatase Lactate Dehydrogenase C-Reactive Protein Total Protein Albumin Albumin/Globulin Ratio Procalcitonin Coronavirus (PCR) 03/26/21 03/26/21 03/26/21 17:00 17:00 17:00 WBC 14.1 H Immature Gran # Neutrophils # 12.8 H Lymphocytes # 0.5 L Eosinophils # APTT 18.2 L D-Dimer ABG pH ABG pCO2 ABG pO2 ABG O2 Saturation Sodium 134 L Chloride Carbon Dioxide Anion Gap BUN 43 H Creatinine BUN/Creatinine Ratio Glucose 279 H POC Glucose (mg/dL) Hemoglobin A1c Plasma Lactic Acid Keshav Calcium AST Alkaline Phosphatase Lactate Dehydrogenase C-Reactive Protein Total Protein 6.1 L Albumin 3.1 L Albumin/Globulin Ratio Procalcitonin Coronavirus (PCR) 03/26/21 03/26/21 03/26/21 18:25 19:18 19:40 WBC Immature Gran # Neutrophils # Lymphocytes # Eosinophils # APTT D-Dimer ABG pH 7.46 H ABG pCO2 32 L ABG pO2 69 L ABG O2 Saturation 93.6 L Sodium Chloride Carbon Dioxide Anion Gap BUN Creatinine BUN/Creatinine Ratio Glucose POC Glucose (mg/dL) 242 H 213 H Hemoglobin A1c Plasma Lactic Acid Keshav Calcium AST Alkaline Phosphatase Lactate Dehydrogenase C-Reactive Protein Total Protein Albumin Albumin/Globulin Ratio Procalcitonin Coronavirus (PCR) 03/26/21 03/27/21 03/27/21 21:27 03:31 03:32 WBC 13.0 H Immature Gran # Neutrophils # 12.0 H Lymphocytes # 0.5 L Eosinophils # APTT D-Dimer ABG pH ABG pCO2 ABG pO2 ABG O2 Saturation Sodium Chloride 108 H Carbon Dioxide 20 L Anion Gap BUN 34 H Creatinine BUN/Creatinine Ratio Glucose 198 H POC Glucose (mg/dL) 208 H Hemoglobin A1c Plasma Lactic Acid Keshav Calcium 8.3 L AST Alkaline Phosphatase Lactate Dehydrogenase C-Reactive Protein Total Protein Albumin Albumin/Globulin Ratio Procalcitonin Coronavirus (PCR) 03/27/21 06:56 WBC Immature Gran # Neutrophils # Lymphocytes # Eosinophils # APTT D-Dimer ABG pH ABG pCO2 ABG pO2 ABG O2 Saturation Sodium Chloride Carbon Dioxide Anion Gap BUN Creatinine BUN/Creatinine Ratio Glucose POC Glucose (mg/dL) 206 H Hemoglobin A1c Plasma Lactic Acid Keshav Calcium AST Alkaline Phosphatase Lactate Dehydrogenase C-Reactive Protein Total Protein Albumin Albumin/Globulin Ratio Procalcitonin Coronavirus (PCR) Assessment and Plan Assessment: Acute ischemic stroke (Right MCA stroke with hemiplegia over left, facial droop, neglect left side, facial droop and dysarthria. NIH 28) post IV tpa on 03/26/2021. 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 Stopped aspirin 81 mg since the patient got IV TPA. After repeated image and there if there is no bleed, the patient on aspirin 81mg and Plavix 75mg daily. Continue Lipitor 80mg qhs for secondary stroke prophylaxis. * 2-D echo and TSH is ordered and is pending. * MRI of the brain is ordered by the primary team is pending * Continue neuro checks per TPA protocol * Continue cardiac monitoring * PT, OT and HAND OR MACHINE PASTER are consulted * Will attempt to find out reason had history of craniotomy in past. * Defer the rest of the medical management to the the primary team and ICU team. * Will defer the rest of medical management to primary team. * For DVT prophylaxis: SCD for now and 24 hours if negative for bled (recommend subq heparin or lovenox and will leave that decision to primary team). Condition is very guarded. The plan is discussed with the patient's nurse and primary team. Thank you for the consult. Kelvin Barfield MD Neuro-Hospitalist Time with Patient: Greater than 30
[2021-03-27 10:30] LABS: ABG Base Excess -0.3 mmol/L; ABG HCO3 23 mmol/L (21-25); ABG Oxygen Saturation 95.1 % (94-97); ABG PCO2 31 mmHg (35-45); ABG PH 7.48 (7.35-7.45); ABG PO2 73 mmHg (83-108); ABG TCO2 24 mmol/L (19-24); Allen Test Performed? Yes
[2021-03-27] MEDS: ZINC SULFATE 220 MG CAP PO SCH (10:52)
[2021-03-27] MEDS: CHOLECALCIFEROL 25 MCG (1000 IU) TABLET PO SCH (10:52)
[2021-03-27] MEDS: ASCORBIC ACID 500 MG TAB PO SCH (10:52)
[2021-03-27 11:18] LABS: Chol/HDL Ratio 4.84 Ratio; LDL Cholesterol,Calculated 57.1 mg/dL (0.0-131.0)
[2021-03-27 11:45] LABS: Glucose,Whole Blood 182 mg/dL (75-99)
[2021-03-27] MEDS: DEXAMETHASONE SOD PHOSPHATE 10 MG/ML 1 ML VIAL IVP SCH (11:53)
--- NOTE | 2021-03-27 12:37 | P.PN ---
Subjective Progress Note Date: 03/27/21 Principal diagnosis: COVID-19 pneumonia 71-year-old white male patient with past medical history of diabetes mellitus type II who presented to the emergency department with the one week history of cough, headaches. His initial symptoms started as what felt like a chest cold, and became progressive. Patient follows with Dr. Malik. His cough is nonproductive. His had no nausea vomiting or diarrhea, no abdominal pain. She tested positive for COVID-19 in the emergency department, and his SpO2 upon presentation was 75% on room air. His chest x-ray showed patchy bilateral pneumonia. D-dimer was elevated at greater than 34.1, and CTA chest was completed showing no evidence of pulmonary embolism, and extensive patchy bilateral pneumonia with mediastinal and bronchial adenopathy and small right pleural effusion. She is currently on 8 L of oxygen his pulse ox is 88-90%, he is in sinus mechanism slightly tachycardic with a rate of 105 BPM, afebrile, he is awaiting a bed on medical surgical floor. He is awake and alert, oriented 3, dyspneic, but appears to be in no acute distress. Started on Decadron 6 mg daily, he is started on vitamins C, D, and zinc, and prophylactic dose Lovenox. On 03/25/2021 patient seen in follow-up on medical surgical floor, he is awake and alert, breathing comfortably, he is currently up to 10 L of oxygen pulse ox is 92%. No fever or chills. Mild cough, no chest discomfort. Chest x-ray today shows patchy infiltrates bilaterally, no significant change compared to last chest x-ray. Afebrile, overall patient states he feels better. His labs have been reviewed, white blood cell count is 11.7, hemoglobin is 15.4, d-dimer is down to 3.9, sodium is 137, potassium 4.5, BUN is 42, creatinine is 1.1, LDH is 643, CRP is 21.8. Troponin was negative at less than 0.012, BNP was 144. Pro-calcitonin level was elevated at 1.51 was placed on empiric antibiotic coverage with a combination of azithromycin and Rocephin The patient is seen today 03/26/2021 in follow-up on the regular medical floor. Currently sitting up in a chair at the bedside. Awake and alert in no acute distress. He is still requiring 8 L high flow nasal cannula to maintain O2 saturations at 91%. No worsening shortness of breath, cough or congestion. A bit better today compared to yesterday. He's been afebrile. Hemodynamically stable. Blood cultures reveal no growth. Sputum culture reveals no growth. White count 13.2. Hemoglobin 15.5. Sodium 134. Potassium 4.8. Creatinine 0.93. He remains on ceftriaxone and azithromycin. Continued on Decadron, Lovenox, vitamin supplements. The patient is seen today 03/27/2021 in follow-up in the intensive care unit. The patient developed left-sided weakness last evening and a code stroke was ca lled. CT angiogram revealed a 1.5 segment of significant stenosis of the proximal right middle cerebral artery. No flow seen at A1 segment of the right anterior cerebral artery. There is diminished contrast density in the intracranial right internal carotid artery suggestive of decreased flow. He was transferred to the ICU and TPA was given. The patient remains he remains awake and alert, oriented to self and time. He does have left-sided neglect. His left side is flaccid. He is requiring 15 L high flow nasal cannula plus a nonrebreather mask to maintain O2 saturations in the low 90s. Follow-up arterial blood gases revealed a PaO2 of 73, pCO2 of 31 and a pH of 7.48. He is 0.9 normal saline at 100 mL per hour. He remains on Decadron vitamin supplements. He is on antibiotics in the form of ceftriaxone and azithromycin. White count 13.0. Hemoglobin 14.2. Platelets 248. Lymphocytes 0.5. Sodium 137. Potassium 4.3. Chloride 108. Bicarb 20. Creatinine 0.94. Glucose 198. Objective - Vital Signs Vital signs: Vital Signs Temp 98.4 F 03/27/21 08:00 Pulse 98 03/27/21 11:30 Resp 27 H 03/27/21 11:30 BP 117/69 03/27/21 11:30 Pulse Ox 93 L 03/27/21 11:30 Intake & Output 03/26/21 03/27/21 03/27/21 18:59 06:59 18:59 Intake Total 20 979 500 Output Total 1680 350 Balance 20 -701 150 Weight 96.6 kg Intake: IV 20 400 0.9 400 Invasive Line 3 10 Invasive Line 4 10 Intake, IV Titration 979 100 Amount Alteplase 79 mg In Empty 79 Bag 1 bag @ 79 mls/hr IV ONCE STA Rx#:[id number] Sodium Chloride 0.9% 1, 900 100 000 ml @ 100 mls/hr IV . Q10H [facility] Rx#:[id number] Output: Urine 1680 350 Uretheral (Farley) 600 Other: Voiding Method Indwelling Catheter Indwelling Catheter Indwelling Catheter # Voids 2 - Exam GENERAL EXAM: Alert, 71-year-old male patient, on 15 L of oxygen, now with left- sided neglect and left-sided flaccid following CVA yesterday HEAD: Normocephalic/atraumatic. EYES: Normal reaction of pupils, equal size. Conjunctiva pink, sclera white. NOSE: Clear with pink turbinates. THROAT: No erythema or exudates. NECK: No masses, no JVD, no thyroid enlargement, no adenopathy. CHEST: No chest wall deformity. Symmetrical expansion. LUNGS: Equal air entry with diffuse crackles bilaterally CVS: Regular rate and rhythm, normal S1 and S2, no gallops, no murmurs, no rubs ABDOMEN: Soft, nontender. No hepatosplenomegaly, normal bowel sounds, no guarding or rigidity. EXTREMITIES: No clubbing, no edema, no cyanosis, 2+ pulses and upper and lower extremities. MUSCULOSKELETAL: Muscle strength and tone normal. SPINE: No scoliosis or deformity SKIN: No rashes CENTRAL NERVOUS SYSTEM: Left-sided neglect and left-sided weakness PSYCHIATRIC: Alert and oriented -3. Appropriate affect. Intact judgment and insight. - Labs CBC & Chem 7: 03/27/21 03:32 03/27/21 03:31 Labs: Abnormal Lab Results - Last 24 Hours (Table) 03/26/21 03/26/21 03/26/21 Range/Units 16:11 16:59 17:00 WBC 14.1 H (3.8-10.6) k/uL Neutrophils # 12.8 H (1.3-7.7) k/uL Lymphocytes # 0.5 L (1.0-4.8) k/uL APTT (22.0-30.0) sec ABG pH (7.35-7.45) ABG pCO2 (35-45) mmHg ABG pO2 (83-108) mmHg ABG O2 Saturation (94-97) % Sodium (137-145) mmol/L Chloride (98-107) mmol/L Carbon Dioxide (22-30) mmol/L BUN (9-20) mg/dL Glucose (74-99) mg/dL POC Glucose (mg/dL) 287 H 266 H (75-99) mg/dL Calcium (8.4-10.2) mg/dL Total Protein (6.3-8.2) g/dL Albumin (3.5-5.0) g/dL Triglycerides (0.00-149.00) mg/dL VLDL Cholesterol, Calc (5.00-40.00) mg/dL HDL Cholesterol (40.00-60.00) mg/dL TSH (0.465-4.680) mIU/L 03/26/21 03/26/21 03/26/21 Range/Units 17:00 17:00 18:25 WBC (3.8-10.6) k/uL Neutrophils # (1.3-7.7) k/uL Lymphocytes # (1.0-4.8) k/uL APTT 18.2 L (22.0-30.0) sec ABG pH (7.35-7.45) ABG pCO2 (35-45) mmHg ABG pO2 (83-108) mmHg ABG O2 Saturation (94-97) % Sodium 134 L (137-145) mmol/L Chloride (98-107) mmol/L Carbon Dioxide (22-30) mmol/L BUN 43 H (9-20) mg/dL Glucose 279 H (74-99) mg/dL POC Glucose (mg/dL) 242 H (75-99) mg/dL Calcium (8.4-10.2) mg/dL Total Protein 6.1 L (6.3-8.2) g/dL Albumin 3.1 L (3.5-5.0) g/dL Triglycerides (0.00-149.00) mg/dL VLDL Cholesterol, Calc (5.00-40.00) mg/dL HDL Cholesterol (40.00-60.00) mg/dL TSH (0.465-4.680) mIU/L 03/26/21 03/26/21 03/26/21 Range/Units 19:18 19:40 21:27 WBC (3.8-10.6) k/uL Neutrophils # (1.3-7.7) k/uL Lymphocytes # (1.0-4.8) k/uL APTT (22.0-30.0) sec ABG pH 7.46 H (7.35-7.45) ABG pCO2 32 L (35-45) mmHg ABG pO2 69 L (83-108) mmHg ABG O2 Saturation 93.6 L (94-97) % Sodium (137-145) mmol/L Chloride (98-107) mmol/L Carbon Dioxide (22-30) mmol/L BUN (9-20) mg/dL Glucose (74-99) mg/dL POC Glucose (mg/dL) 213 H 208 H (75-99) mg/dL Calcium (8.4-10.2) mg/dL Total Protein (6.3-8.2) g/dL Albumin (3.5-5.0) g/dL Triglycerides (0.00-149.00) mg/dL VLDL Cholesterol, Calc (5.00-40.00) mg/dL HDL Cholesterol (40.00-60.00) mg/dL TSH (0.465-4.680) mIU/L 03/27/21 03/27/21 03/27/21 Range/Units 03:31 03:31 03:32 WBC 13.0 H (3.8-10.6) k/uL Neutrophils # 12.0 H (1.3-7.7) k/uL Lymphocytes # 0.5 L (1.0-4.8) k/uL APTT (22.0-30.0) sec ABG pH (7.35-7.45) ABG pCO2 (35-45) mmHg ABG pO2 (83-108) mmHg ABG O2 Saturation (94-97) % Sodium (137-145) mmol/L Chloride 108 H (98-107) mmol/L Carbon Dioxide 20 L (22-30) mmol/L BUN 34 H (9-20) mg/dL Glucose 198 H (74-99) mg/dL POC Glucose (mg/dL) (75-99) mg/dL Calcium 8.3 L (8.4-10.2) mg/dL Total Protein (6.3-8.2) g/dL Albumin (3.5-5.0) g/dL Triglycerides 242.00 H (0.00-149.00) mg/dL VLDL Cholesterol, Calc 48.40 H (5.00-40.00) mg/dL HDL Cholesterol 27.50 L (40.00-60.00) mg/dL TSH 0.072 L (0.465-4.680) mIU/L 03/27/21 03/27/21 03/27/21 Range/Units 06:56 10:28 11:43 WBC (3.8-10.6) k/uL Neutrophils # (1.3-7.7) k/uL Lymphocytes # (1.0-4.8) k/uL APTT (22.0-30.0) sec ABG pH 7.48 H (7.35-7.45) ABG pCO2 31 L (35-45) mmHg ABG pO2 73 L (83-108) mmHg ABG O2 Saturation (94-97) % Sodium (137-145) mmol/L Chloride (98-107) mmol/L Carbon Dioxide (22-30) mmol/L BUN (9-20) mg/dL Glucose (74-99) mg/dL POC Glucose (mg/dL) 206 H 182 H (75-99) mg/dL Calcium (8.4-10.2) mg/dL Total Protein (6.3-8.2) g/dL Albumin (3.5-5.0) g/dL Triglycerides (0.00-149.00) mg/dL VLDL Cholesterol, Calc (5.00-40.00) mg/dL HDL Cholesterol (40.00-60.00) mg/dL TSH (0.465-4.680) mIU/L Microbiology - Last 24 Hours (Table) 03/26/21 07:36 Gram Stain - Preliminary Sputum Sputum Culture - Preliminary 03/24/21 03:43 Blood Culture - Preliminary Blood No Growth after 72 hours 03/24/21 03:58 Blood Culture - Preliminary Blood No Growth after 72 hours Assessment and Plan Assessment: 1 Acute hypoxic respiratory failure related to acute COVID-19 pneumonia, patient presented with 1 week history of symptoms with cough, shortness of breath, headaches. Tested positive in the emergency department on 03/23/2021. Patient is not a candidate for Remdesivir related to his increased oxygen demand, patient currently on 8 L of oxygen. Will be treated with a combination of steroids, vitamins, and prophylactic anticoagulation 2 Acute left-sided weakness and code stroke on 03/26/2021 status post TPA infusion. CT angiogram revealed a 1.5 cm segment of significant stenosis of the proximal right middle cerebral artery. He continues with left-sided weakness and left-sided neglect 3 Elevated d-dimer with no CTA evidence of pulmonary embolism, Dopplers negative 3 Acute kidney injury that improved 4 Mild lactic acidosis, patient was given IV fluid bolus in the emergency department, repeat lactic acid is pending 5 Diabetes mellitus type 2 6 Elevated pro-calcitonin with the possibility of bacterial infection and possibility of bacterial pneumonia Plan: The patient was seen and evaluated by Dr. Barfield Continue to titrate the FiO2 as tolerated Continue Decadron, vitamin supplements Continue antibiotics for now Neurology is following the case We will continue to follow I, the cosigning physician, performed a history & physical examination of the patient. Lungs sounds bibasilar crackles. Maintaining good O2 saturations in the 90s on 15 L high flow nasal cannula. I discussed the assessment and plan of care with my nurse practitioner, Raegan Meyers. I attest to the above note as dictated by her.
--- NOTE | 2021-03-27 17:01 | P.PN ---
Subjective Progress Note Date: 03/27/21 Patient is a 71-year-old male with a history of diabetes mellitus and hypertension who presented to the emergency department with complaints of fevers, headache, muscle aches and poor appetite. In the emergency department he underwent an extensive evaluation. On arrival he was found to be satting 75% on room air and had a heart rate of 120. Urinalysis is remarkable for lactic acid of 2.5, creatinine 1.38, and COVID-19 testing was positive. He underwent a CTA of the chest which showed no evidence of pulmonary embolism but did demonstrate extensive patchy bilateral pneumonia. He was admitted and was started on dexamethasone and IV fluids. He was seen by pulmonary critical care who recommended lower extremity venous Dopplers. These were completed without evidence of DVT. He did have a pro-calcitonin drawn which was elevated at 1.51. Therefore he was kept on Rocephin and Zithromax as bacterial coinfection could not be eliminated. He continued to require high flow nasal cannula. His d- dimer improved. Patient seen and examined at bedside. He has slurred speech. He complains of shortness of breath, no cough, not hungy.+ slurred speech. We discussed that pulm has recommended nonemergent intubation. updated over the phone and is in agreement with intubation if needed. All questions answered about stroke. General:ill appearing, no distress, appears at stated age Derm: warm, dry Head: atraumatic, normocephalic, symmetric Eyes: EOMI, no lid lag, anicteric sclera Mouth: no lip lesion, mucus membranes moist Cardiovascular: S1S2 reg, no murmur, positive posterior tibial pulse bilateral, Lungs: Coarse breath sounds bilateral, no rhonchi, no rales , + accessory muscle Abdominal: soft, nontender to palpation, no guarding, no appreciable organomegaly Ext: no gross muscle atrophy, no edema, no contractures Neuro: left sided facial droop with slurred speech, withdrawal to pain in left lower extremity, follow BS Psych: Alert, oriented, appropriate affect COVID-19 pneumonitis Acute hypoxic respiratory failure -Continue with dexamethasone -Pulmonary recommendations: Not a candidate for Remdesivir -Continue vitamin C, vitamin D, zinc -Unable to rule out bacterial component with pro-calcitonin of 1.5 and will continue with Zithromax and Rocephin. Attempt sputum culture. -DVT prophylaxis: Lovenox Right MCA Acute ischemic CVA - s/p TPA -Aspirin to start 48 hours after TPA, Plavix -Lipitor once able to take oral medications -Neurology recommendations -PT/OT/speech evaluation when appropriate -Await echocardiogram, MRI -Await repeat head CT to assess for bleeding to be done at 20:20 tonight Diabetes mellitus type II -Hold Glucophage -Sliding-scale insulin -Follow blood sugars - A1C 7.9 Hypertension -Lisinopril on hold for permissive HTN -Follow blood pressures Dyslipidemia -Atorvastatin ALLEGRA, resolved Lactic acidosis, resolved DVT prophylaxis: Lovenox Discussed with: Patient, nursing Anticipated discharge: undetermined Anticipated discharge place: home A total of 35 minutes was spent on the care of this complex patient more than 50% of the time was spent in counseling and care coordination. Objective - Vital Signs Vital signs: Vital Signs Temp 98.5 F 03/27/21 16:00 Pulse 103 H 03/27/21 16:00 Resp 21 03/27/21 16:00 BP 135/83 03/27/21 16:00 Pulse Ox 91 L 03/27/21 16:00 Intake & Output 03/26/21 03/27/21 03/27/21 18:59 06:59 18:59 Intake Total 20 979 1000 Output Total 1680 730 Balance 20 -701 270 Weight 96.6 kg Intake: IV 20 900 0.9 900 Invasive Line 3 10 Invasive Line 4 10 Intake, IV Titration 979 100 Amount Alteplase 79 mg In Empty 79 Bag 1 bag @ 79 mls/hr IV ONCE STA Rx#:[id number] Sodium Chloride 0.9% 1, 900 100 000 ml @ 100 mls/hr IV . Q10H [facility] Rx#:[id number] Output: Urine 1680 730 Uretheral (Farley) 600 Other: Voiding Method Indwelling Catheter Indwelling Catheter Indwelling Catheter # Voids 2 - Labs CBC & Chem 7: 03/27/21 03:32 03/27/21 03:31 Labs: Abnormal Lab Results - Last 24 Hours (Table) 03/26/21 03/26/21 03/26/21 Range/Units 16:59 17:00 17:00 WBC 14.1 H (3.8-10.6) k/uL Neutrophils # 12.8 H (1.3-7.7) k/uL Lymphocytes # 0.5 L (1.0-4.8) k/uL APTT 18.2 L (22.0-30.0) sec ABG pH (7.35-7.45) ABG pCO2 (35-45) mmHg ABG pO2 (83-108) mmHg ABG O2 Saturation (94-97) % Sodium (137-145) mmol/L Chloride (98-107) mmol/L Carbon Dioxide (22-30) mmol/L BUN (9-20) mg/dL Glucose (74-99) mg/dL POC Glucose (mg/dL) 266 H (75-99) mg/dL Calcium (8.4-10.2) mg/dL Total Protein (6.3-8.2) g/dL Albumin (3.5-5.0) g/dL Triglycerides (0.00-149.00) mg/dL VLDL Cholesterol, Calc (5.00-40.00) mg/dL HDL Cholesterol (40.00-60.00) mg/dL TSH (0.465-4.680) mIU/L 03/26/21 03/26/21 03/26/21 Range/Units 17:00 18:25 19:18 WBC (3.8-10.6) k/uL Neutrophils # (1.3-7.7) k/uL Lymphocytes # (1.0-4.8) k/uL APTT (22.0-30.0) sec ABG pH 7.46 H (7.35-7.45) ABG pCO2 32 L (35-45) mmHg ABG pO2 69 L (83-108) mmHg ABG O2 Saturation 93.6 L (94-97) % Sodium 134 L (137-145) mmol/L Chloride (98-107) mmol/L Carbon Dioxide (22-30) mmol/L BUN 43 H (9-20) mg/dL Glucose 279 H (74-99) mg/dL POC Glucose (mg/dL) 242 H (75-99) mg/dL Calcium (8.4-10.2) mg/dL Total Protein 6.1 L (6.3-8.2) g/dL Albumin 3.1 L (3.5-5.0) g/dL Triglycerides (0.00-149.00) mg/dL VLDL Cholesterol, Calc (5.00-40.00) mg/dL HDL Cholesterol (40.00-60.00) mg/dL TSH (0.465-4.680) mIU/L 03/26/21 03/26/21 03/27/21 Range/Units 19:40 21:27 03:31 WBC (3.8-10.6) k/uL Neutrophils # (1.3-7.7) k/uL Lymphocytes # (1.0-4.8) k/uL APTT (22.0-30.0) sec ABG pH (7.35-7.45) ABG pCO2 (35-45) mmHg ABG pO2 (83-108) mmHg ABG O2 Saturation (94-97) % Sodium (137-145) mmol/L Chloride (98-107) mmol/L Carbon Dioxide (22-30) mmol/L BUN (9-20) mg/dL Glucose (74-99) mg/dL POC Glucose (mg/dL) 213 H 208 H (75-99) mg/dL Calcium (8.4-10.2) mg/dL Total Protein (6.3-8.2) g/dL Albumin (3.5-5.0) g/dL Triglycerides 242.00 H (0.00-149.00) mg/dL VLDL Cholesterol, Calc 48.40 H (5.00-40.00) mg/dL HDL Cholesterol 27.50 L (40.00-60.00) mg/dL TSH 0.072 L (0.465-4.680) mIU/L 03/27/21 03/27/21 03/27/21 Range/Units 03:31 03:32 06:56 WBC 13.0 H (3.8-10.6) k/uL Neutrophils # 12.0 H (1.3-7.7) k/uL Lymphocytes # 0.5 L (1.0-4.8) k/uL APTT (22.0-30.0) sec ABG pH (7.35-7.45) ABG pCO2 (35-45) mmHg ABG pO2 (83-108) mmHg ABG O2 Saturation (94-97) % Sodium (137-145) mmol/L Chloride 108 H (98-107) mmol/L Carbon Dioxide 20 L (22-30) mmol/L BUN 34 H (9-20) mg/dL Glucose 198 H (74-99) mg/dL POC Glucose (mg/dL) 206 H (75-99) mg/dL Calcium 8.3 L (8.4-10.2) mg/dL Total Protein (6.3-8.2) g/dL Albumin (3.5-5.0) g/dL Triglycerides (0.00-149.00) mg/dL VLDL Cholesterol, Calc (5.00-40.00) mg/dL HDL Cholesterol (40.00-60.00) mg/dL TSH (0.465-4.680) mIU/L 03/27/21 03/27/21 Range/Units 10:28 11:43 WBC (3.8-10.6) k/uL Neutrophils # (1.3-7.7) k/uL Lymphocytes # (1.0-4.8) k/uL APTT (22.0-30.0) sec ABG pH 7.48 H (7.35-7.45) ABG pCO2 31 L (35-45) mmHg ABG pO2 73 L (83-108) mmHg ABG O2 Saturation (94-97) % Sodium (137-145) mmol/L Chloride (98-107) mmol/L Carbon Dioxide (22-30) mmol/L BUN (9-20) mg/dL Glucose (74-99) mg/dL POC Glucose (mg/dL) 182 H (75-99) mg/dL Calcium (8.4-10.2) mg/dL Total Protein (6.3-8.2) g/dL Albumin (3.5-5.0) g/dL Triglycerides (0.00-149.00) mg/dL VLDL Cholesterol, Calc (5.00-40.00) mg/dL HDL Cholesterol (40.00-60.00) mg/dL TSH (0.465-4.680) mIU/L Microbiology - Last 24 Hours (Table) 03/26/21 07:36 Gram Stain - Preliminary Sputum Sputum Culture - Preliminary 03/24/21 03:43 Blood Culture - Preliminary Blood No Growth after 72 hours 03/24/21 03:58 Blood Culture - Preliminary Blood No Growth after 72 hours
[2021-03-27] MEDS: AZITHROMYCIN 500 MG in SODIUM CHLORIDE 0.9% 250 ML IVPB SCH (17:12)
[2021-03-27] MEDS ORDERED: propofoL 100 ML IV ONE ×2 (18:11→20:31)
--- NOTE | 2021-03-27 19:08 | XR ---
EXAMINATION TYPE: XR chest 1V portable DATE OF EXAM: 03/27/2021 COMPARISON: 03/25/2020 HISTORY: 71 years Male. STUDY INDICATION GIVEN: post intubation . TECHNIQUE: AP upright chest radiograph IMPRESSION: Tip of endotracheal tube 2.5 cm above edelmira. Enteric tube courses into the stomach terminating below the inferior boundaries of x-ray. Patchy bilateral airspace and mild interstitial opacities are again demonstrated with no significant change. This appears to be a superimposed on a background of mild COPD/emphysema demonstrated by scattered kit cencies through the upper lobes mild hyperinflated lungs. This is not significantly changed compared to prior. The cardiomediastinal silhouette is within normal limit. No pneumothorax or effusion appreciated. The osseous structures are stable compared to the prior without acute abnormality.
[2021-03-27 19:17] LABS: Glucose,Whole Blood 239 mg/dL (75-99)
[2021-03-27] MEDS ORDERED: CISATRACURIUM 2 MG/ML 5 ML VIAL IV ONE (19:42)
[2021-03-27] MEDS: CISATRACURIUM 200 MG in SODIUM CHLORIDE 0.9% 180 ML IV SCH (19:58)
[2021-03-27 20:29] LABS: ABG Base Excess -5.2 mmol/L; ABG HCO3 22 mmol/L (21-25); ABG Oxygen Saturation 99.7 % (94-97); ABG PCO2 46 mmHg (35-45); ABG PH 7.28 (7.35-7.45); ABG PO2 220 mmHg (83-108); ABG TCO2 23 mmol/L (19-24); Allen Test Performed? Yes
[2021-03-27] MEDS ORDERED: INSULIN DETEMIR (LEVEMIR) 100 UNIT/ML SYR SQ SCH (21:00)
[2021-03-27] MEDS: ATORVASTATIN 80 MG TAB PO SCH (21:31)
[2021-03-27 21:42] LABS: Glucose,Whole Blood 207 mg/dL (75-99)
--- NOTE | 2021-03-27 22:48 | CT ---
EXAMINATION TYPE: CT brain wo con DATE OF EXAM: 03/27/2021 COMPARISON: Yesterday HISTORY: Post TPA CT DLP: 1261.4 mGycm Automated exposure control for dose reduction was used. Images obtained of the brain without contrast. There is large area of hypodensity in the right cerebral hemisphere involving the temporal lobe occip ital lobe and to a lesser extent the right parietal lobe. There is some sparing of the frontal lobes. There is no midline shift. There is slight effacement of the right lateral ventricle consistent with some swelling and edema. There is left temporal craniotomy defect. IMPRESSION: Large right cerebral hemisphere acute infarct which is a change compared to yesterday. Cerebral edema . No hemorrhage. Infarct in the right middle cerebral artery distribution and also involvement of the right posterior cerebral artery distribution.
[2021-03-27] MEDS ORDERED: ASPIRIN 300 MG SUPP RECTAL STA (23:35)
[2021-03-28] MEDS: SODIUM CHLORIDE 0.9% 1,000 ML IV SCH ×3 (00:18→19:50)
[2021-03-28] MEDS: ARTIFICIAL TEARS-HYPROMELLOSE DROPS 15 ML BTL BOTH EYES SCH ×7 (00:18→23:42)
[2021-03-28 04:11] LABS: Basophils # (A) 0.1 k/uL (0-0.2); Basophils % (A) 0 %; Eosinophils % (A) 0 %; HCT 44.6 % (39.0-53.0); HGB 14.6 gm/dL (13.0-17.5); Lymphocytes # (A) 0.7 k/uL (1.0-4.8); Lymphocytes % (A) 6 %; MCH 30.9 pg (25.0-35.0); MCHC 32.7 g/dL (31.0-37.0); MCV 94.3 fL (80.0-100.0); Mean Platelet Volume 7.8; Monocytes # (A) 0.3 k/uL (0-1.0); Monocytes % (A) 2 %; Neutrophils # (A) 12.3 k/uL (1.3-7.7); Neutrophils % (A) 91 %; Platelet Count 212 k/uL (150-450); RBC 4.73 m/uL (4.30-5.90); RDW 13.2 % (11.5-15.5); WBC 13.6 k/uL (3.8-10.6)
[2021-03-28 04:42] LABS: African American GFR (CKD) >90 (>60 ml/min/1.73 sqM); Anion Gap 7 mmol/L; Blood Urea Nitrogen 31 mg/dL (9-20); Calcium 8.1 mg/dL (8.4-10.2); Carbon Dioxide 22 mmol/L (22-30); Chloride 112 mmol/L (98-107); Glucose 203 mg/dL (74-99); Non-African American GFR(CKD) 88 (>60 ml/min/1.73 sqM); Sodium 141 mmol/L (137-145)
[2021-03-28 05:02] LABS: C Reactive Protein 23.1 mg/dL (<1.0); LDH 2025 U/L (313-618)
[2021-03-28 06:26] LABS: ABG Base Excess -2.5 mmol/L; ABG HCO3 25 mmol/L (21-25); ABG Oxygen Saturation 96.8 % (94-97); ABG PCO2 56 mmHg (35-45); ABG PH 7.25 (7.35-7.45); ABG PO2 92 mmHg (83-108); ABG TCO2 26 mmol/L (19-24); Allen Test Performed? Yes
[2021-03-28] MEDS: PANTOPRAZOLE 40 MG TABLET PO SCH (06:43)
[2021-03-28] MEDS: INSULIN ASPART (NovoLOG) 100 UNIT/ML VIAL SQ SCH ×4 (06:48→19:51)
[2021-03-28 06:49] LABS: Glucose,Whole Blood 181 mg/dL (75-99)
--- NOTE | 2021-03-28 08:32 | XR ---
EXAMINATION TYPE: XR chest 1V portable DATE OF EXAM: 03/28/2021 CLINICAL HISTORY: Difficulty breathing progress study. TECHNIQUE: Single AP portable semiupright view of the chest is obtained. COMPARISON: Chest x-ray from one day earlier and older studies. FINDINGS: Stable slightly low-lying endotracheal tube. The orogastric tube extends below diaphragm n ow is coiling into hiatal hernia just above the diaphragm. Persistent bilateral multifocal opacities greatest in the periphery. Cardiac silhouette size stable a nd within normal limits. Small to tiny left pleural effusion suspected. Degenerative change bilateral glenohumeral joints. IMPRESSION: Coiling of orogastric tube into hiatal hernia on current study new from Prior. Slightly more prominent bilateral multifocal and confluent opacities consistent with covid-19 infection progression.
[2021-03-28] MEDS: ZINC SULFATE 220 MG CAP PO SCH (09:15)
[2021-03-28] MEDS: ASCORBIC ACID 500 MG TAB PO SCH (09:15)
[2021-03-28] MEDS: CHOLECALCIFEROL 25 MCG (1000 IU) TABLET PO SCH (09:15)
--- NOTE | 2021-03-28 10:48 | P.PN ---
Subjective Progress Note Date: 03/28/21 Yesterday the patient was intubated for airway protection. The patient was initially started on the IV propofol then Nimbmex per ICU team. Today the patient had a repeat CT of the head and supported as large right cerebral hemisphere acute infarct which is change compared to yesterday. Cerebral edema. No hemorrhage. Infarct in the right middle cerebral artery distribution are also involvement of the right posterior cerebral artery distribution. The nurse notified me about this. The head and I notified them the that is safe to give aspirin 300 mg suppository. He is On IV propofol 50mcg/kg/min and Nimbex 2mcg/kg/min. I spoke with the patient's in 1987 he fell off truck as result suffered bleeding and she was having headache so he had to drain it but not sure. Per primary team, no a-fib or flutter so far in the hospital. Objective - Vital Signs Vital signs: Vital Signs Temp 98.3 F 03/28/21 04:00 Pulse 111 H 03/28/21 07:00 Resp 24 03/28/21 07:00 BP 149/89 03/28/21 07:00 Pulse Ox 94 L 03/28/21 07:00 Intake & Output 03/27/21 03/28/21 03/28/21 18:59 06:59 18:59 Intake Total 1200 1367.213 103 Output Total 930 1220 75 Balance 270 147.213 28 Weight 96 kg Intake: IV 1100 1215 103 0.9 1100 1200 100 A-Line 15 3 Intake, IV Titration 100 152.213 Amount Sodium Chloride 0.9% 1, 100 000 ml @ 100 mls/hr IV . Q10H [facility] Rx#:[id number] propofoL 1,000 mg In 152.213 Empty Bag 1 bag @ Titrate IV .Q0M [facility] Rx#: [id number] Output: Urine 930 1220 75 Other: Voiding Method Indwelling Catheter Indwelling Catheter ABP, PAP, CO, CI - Last Documented Arterial Blood Pressure 133/71 - Exam GENERAL: The patient is lying, and does not seem in acute distress. He is on IV Propofol and Nimbex. LUNG: Is intubated and on ventilator. NEUROLOGICAL: Limited because patient in on IV propofol 50mcg/kg/min and Nimbex 2mcg/kg/min Higher mental function: Could not assess. Cranial nerves: The pupils are round, equal and ?slugghishly reactive to light bilaterally. Left facial droop. A/C is set at 24 and is breathing at 24 and with suctioning is breathing over. Otherwise exam is limited. Motor: Could not assess. Has decrease tone over the left. Sensation: Could not assess. WORK-UP: * Lipid panel is triglyceride of 242, cholesterol 133, LDL of 57 and HDL 27. * TSH is 0.072. * Hemoglobin A1c 7.9. * CT of the head is reported as cerebral atrophy. No acute intracranial abnormality. Previous surgery. * While CT angiography of the head and neck was reported as there is 0.5 cm segment of significant stenosis of the proximal right MCA cerebral artery. No significant flow seen in the A1 segment of the right anterior cerebral artery. Right anterior cerebral artery appears to fill through the anterior communicating artery. There is diminished contrast density in the intracranial right internal carotid artery suggestive of decreased flow. I personally reviewed the CT of the head and I did not appreciate any acute subacute ischemia and no interpretable hemorrhage. There is motion artifact on the CT. The patient does have a craniotomy over the left frontal temporal region. Also I felt the right MCA is severely stenosis and there is possible faint flow. * Repeat CT of the head on 03/27 and supported as large right cerebral hemisphere acute infarct which is change compared to yesterday. Cerebral edema. No hemorrhage. Infarct in the right middle cerebral artery distribution are also involvement of the right posterior cerebral artery distribution. The nurse notified me about this. The head and I notified them the that is safe to give aspirin 300 mg suppository. - Labs CBC & Chem 7: 03/28/21 04:00 03/28/21 04:00 Labs: Abnormal Lab Results - Last 24 Hours (Table) 03/27/21 03/27/21 03/27/21 Range/Units 03:31 10:28 11:43 WBC (3.8-10.6) k/uL Neutrophils # (1.3-7.7) k/uL Lymphocytes # (1.0-4.8) k/uL D-Dimer (<0.60) mg/L FEU ABG pH 7.48 H (7.35-7.45) ABG pCO2 31 L (35-45) mmHg ABG pO2 73 L (83-108) mmHg ABG Total CO2 (19-24) mmol/L ABG O2 Saturation (94-97) % Chloride (98-107) mmol/L BUN (9-20) mg/dL Glucose (74-99) mg/dL POC Glucose (mg/dL) 182 H (75-99) mg/dL Calcium (8.4-10.2) mg/dL Lactate Dehydrogenase (313-618) U/L C-Reactive Protein (<1.0) mg/dL Triglycerides 242.00 H (0.00-149.00) mg/dL VLDL Cholesterol, Calc 48.40 H (5.00-40.00) mg/dL HDL Cholesterol 27.50 L (40.00-60.00) mg/dL 03/27/21 03/27/21 03/27/21 Range/Units 19:15 20:22 21:40 WBC (3.8-10.6) k/uL Neutrophils # (1.3-7.7) k/uL Lymphocytes # (1.0-4.8) k/uL D-Dimer (<0.60) mg/L FEU ABG pH 7.28 L (7.35-7.45) ABG pCO2 46 H (35-45) mmHg ABG pO2 220 H (83-108) mmHg ABG Total CO2 (19-24) mmol/L ABG O2 Saturation 99.7 H (94-97) % Chloride (98-107) mmol/L BUN (9-20) mg/dL Glucose (74-99) mg/dL POC Glucose (mg/dL) 239 H 207 H (75-99) mg/dL Calcium (8.4-10.2) mg/dL Lactate Dehydrogenase (313-618) U/L C-Reactive Protein (<1.0) mg/dL Triglycerides (0.00-149.00) mg/dL VLDL Cholesterol, Calc (5.00-40.00) mg/dL HDL Cholesterol (40.00-60.00) mg/dL 03/28/21 03/28/21 03/28/21 Range/Units 04:00 04:00 04:00 WBC 13.6 H (3.8-10.6) k/uL Neutrophils # 12.3 H (1.3-7.7) k/uL Lymphocytes # 0.7 L (1.0-4.8) k/uL D-Dimer >34.10 H (<0.60) mg/L FEU ABG pH (7.35-7.45) ABG pCO2 (35-45) mmHg ABG pO2 (83-108) mmHg ABG Total CO2 (19-24) mmol/L ABG O2 Saturation (94-97) % Chloride 112 H (98-107) mmol/L BUN 31 H (9-20) mg/dL Glucose 203 H (74-99) mg/dL POC Glucose (mg/dL) (75-99) mg/dL Calcium 8.1 L (8.4-10.2) mg/dL Lactate Dehydrogenase 2025 H (313-618) U/L C-Reactive Protein 23.1 H (<1.0) mg/dL Triglycerides (0.00-149.00) mg/dL VLDL Cholesterol, Calc (5.00-40.00) mg/dL HDL Cholesterol (40.00-60.00) mg/dL 03/28/21 03/28/21 Range/Units 06:25 06:47 WBC (3.8-10.6) k/uL Neutrophils # (1.3-7.7) k/uL Lymphocytes # (1.0-4.8) k/uL D-Dimer (<0.60) mg/L FEU ABG pH 7.25 L (7.35-7.45) ABG pCO2 56 H (35-45) mmHg ABG pO2 (83-108) mmHg ABG Total CO2 26 H (19-24) mmol/L ABG O2 Saturation (94-97) % Chloride (98-107) mmol/L BUN (9-20) mg/dL Glucose (74-99) mg/dL POC Glucose (mg/dL) 181 H (75-99) mg/dL Calcium (8.4-10.2) mg/dL Lactate Dehydrogenase (313-618) U/L C-Reactive Protein (<1.0) mg/dL Triglycerides (0.00-149.00) mg/dL VLDL Cholesterol, Calc (5.00-40.00) mg/dL HDL Cholesterol (40.00-60.00) mg/dL Microbiology - Last 24 Hours (Table) 03/26/21 07:36 Gram Stain - Final Sputum Sputum Culture - Final 03/24/21 03:43 Blood Culture - Preliminary Blood No Growth after 96 hours 03/24/21 03:58 Blood Culture - Preliminary Blood No Growth after 96 hours Assessment and Plan Assessment: Acute large right cerebral ischemic stroke (NIH 28) post IV tpa on 03/26/2021. Stroke appears due to COVID-19 (no afib or flutter per primary team) Acute Right MCA occlusion: Not intervention per stroke team because of hypo plastic basilar (risk outweigh benefit) Acute right MCA stroke Cytotoxic edema due above Encephalopathy due to stroke and medication effect (Nimbex and IV propofol). Intubated and on mechanical ventilation for airway protection History of Craniotomy over the left hemisphere: Had fall and suffered bleeding in 1987 (according to ) Acute hypoxic respiratory failure related to do acute COVID-19 ammonia Acute kidney injury--resolved Diabetes mellitus type 2 Plan: * The patient on the suppository aspirin 300 mg daily. We'll hold off on Plavix for now. Continue Lipitor daily at bedtime. * Pending 2-D echo. * Altered get a repeat CT of the head for tomorrow. I cancelled MRI Brain since patient in intubated and is on ventilator. MRI Brain will not provide additonal information since stroke is seen on CT head. * I gave patient 1 dose of mannitol because for the cytotoxic edema. * Continue neuro checks per TPA protocol * Continue cardiac monitoring * PT, OT and [facility] are consulted * Defer the rest of the medical management to the the primary team and ICU team. * Will defer the rest of medical management to primary team. * For DVT prophylaxis: Will start subq heparin 5000U every 12 hours. Condition is critical and prognosis appears poor. I spoke with the patient's (Maeve) via phone and updated her. She stated that she would like to observe him for at least one more day then will make further decisions. She does not want any heroic interventions. The plan is also discussed with the patient's nurse and primary team. eKlvin Barfield MD Neuro-Hospitalist Time with Patient: Less than 30
[2021-03-28 11:35] LABS: Glucose,Whole Blood 199 mg/dL (75-99)
[2021-03-28] MEDS ORDERED: SALINE IV ONE (12:00)
[2021-03-28] MEDS ORDERED: MANNITOL IV ONE (12:00)
--- NOTE | 2021-03-28 12:19 | ECHOF ---
Referral Reason:Thrombus MEASUREMENTS -------- HEIGHT: 180.3 cm WEIGHT: 95.7 kg BP: 140/82 RVIDd: 3.8 cm (< 3.3) IVSd: 1.3 cm (0.6 - 1.1) LVIDd: 3.7 cm (3.9 - 5.3) LVPWd: 1.1 cm (0.6 - 1.1) IVSs: 2.0 cm LVIDs: 2.4 cm LVPWs: 1.6 cm LA Diam: 3.0 cm (2.7 - 3.8) LAESV Index (A-L): 21.76 ml/m Ao Diam: 3.2 cm (2.0 - 3.7) AV Cusp: 2.4 cm (1.5 - 2.6) MV E Morales: 0.62 m/s MV DecT: 217 ms MV A Morales: 0.79 m/s MV E/A Ratio: 0.78 RAP: 15.00 mmHg RVSP: 65.34 mmHg TAPSE: 20.69 mm FINDINGS -------- Resting tachycardia (HR>100bpm). This was a technically adequate study. The left ventricular size is normal. There is mild concentric left ventricular hypertrophy. Overa ll left ventricular systolic function is normal with, an EF between 55 - 60 %. The right ventricle is moderately enlarged. Normal LA size by volume 22+/-6 ml/m2. The right atrium is normal in size. Interatrial and interventricular septum intact. The aortic valve is trileaflet, and appears structurally normal. No aortic stenosis or regurgitation. Mild mitral regurgitation is present. Mild tricuspid regurgitation present. There is severe pulmonary hypertension. The right ventricul ar systolic pressure, as measured by Doppler, is 65.34mmHg. The pulmonic valve is normal. The aortic root size is normal. The inferior vena cava is dilated with no significant inspiratory collapse which is consistent estima sobeida right atrial pressure of >15 mmHg. There is no pericardial effusion. CONCLUSIONS -------- 1. The left ventricular size is normal. 2. There is mild concentric left ventricular hypertrophy. 3. Overall left ventricular systolic function is normal with, an EF between 55 - 60 %. 4. The right ventricle is moderately enlarged. 5. The aortic valve is trileaflet, and appears structurally normal. No aortic stenosis or regurgitati on. 6. Mild mitral regurgitation is present. 7. Mild tricuspid regurgitation present. 8. There is severe pulmonary hypertension. 9. The right ventricular systolic pressure, as measured by Doppler, is 65.34mmHg. 10. The inferior vena cava is dilated with no significant inspiratory collapse which is consistent es timated right atrial pressure of >15 mmHg. 11. There is no pericardial effusion. HOUSE SUPERINTENDENT: Taryn Escobar RDCS
[2021-03-28] MEDS: DEXAMETHASONE SOD PHOSPHATE 10 MG/ML 1 ML VIAL IVP SCH ×3 (12:32→20:39)
[2021-03-28] MEDS: HEPARIN SODIUM,PORCINE/PF 5,000 UNIT/0.5 ML SYRINGE SQ SCH ×2 (12:33→23:42)
[2021-03-28] MEDS: ASPIRIN 300 MG SUPP RECTAL SCH (12:34)
--- NOTE | 2021-03-28 13:16 | P.PN ---
Subjective Progress Note Date: 03/28/21 (delayed charting seen at ) Patient is a 71-year-old male with a history of diabetes mellitus and hypertens ion who presented to the emergency department with complaints of fevers, headache, muscle aches and poor appetite. In the emergency department he underwent an extensive evaluation. On arrival he was found to be satting 75% on room air and had a heart rate of 120. Urinalysis is remarkable for lactic acid of 2.5, creatinine 1.38, and COVID-19 testing was positive. He underwent a CTA of the chest which showed no evidence of pulmonary embolism but did demonstrate extensive patchy bilateral pneumonia. He was admitted and was started on dexamethasone and IV fluids. He was seen by pulmonary critical care who recommended lower extremity venous Dopplers. These were completed without evidence of DVT. He did have a pro-calcitonin drawn which was elevated at 1.51. Therefore he was kept on Rocephin and Zithromax as bacterial coinfection could not be eliminated. He continued to require high flow nasal cannula. His d- dimer improved. On the afternoon of 03/26 he developed sudden onset left-sided flaccid paralysis. Code stroke was called. He underwent a head CT which showed no acute process and a CTA head and neck which showed narrowing of the right MCA. Interventional neurology was contacted who did not recommend TPA or intervention at that time. He continued to have worsening of his symptoms over the next 2 hours and they were again recontacted and recommended TPA. This was administered on 03/26. On 03/27 the patient continued to have difficulty with swallowing, left-sided facial droop, and left-sided paralysis. He had worsening respiratory status and subsequently required intubation on 03/27. He then required paralytic. Repeat head CT demonstrated cerebral edema without midline shift or significant mass effect. Patient seen and examined at bedside. He is sedated and paralyzed on the vent. No other acute events overnight. General:ill appearing, no distress, appears at stated age Derm: warm, dry Head: atraumatic, normocephalic, symmetric Eyes: Pupils pinpoint and nonreactive, no lip lesion, anicteric sclera Mouth: no lip lesion, mucus membranes moist Cardiovascular: S1S2 reg, no murmur, positive posterior tibial pulse bilateral, Lungs: Clear to auscultation bilaterally, no accessory muscle use, on vent Abdominal: soft, nontender to palpation, no guarding, no appreciable organomegaly Ext: no gross muscle atrophy, no edema, no contractures Neuro: on paralytic Psych: sedated and intubated COVID-19 pneumonitis Acute hypoxic respiratory failure -Continue with dexamethasone -Pulmonary recommendations: Not a candidate for Remdesivir -Continue vitamin C, vitamin D, zinc -Unable to rule out bacterial component with pro-calcitonin of 1.5 and will continue with Zithromax and Rocephin. Attempt sputum culture. -DVT prophylaxis: Lovenox Right MCA Acute ischemic CVA with cerebral edema -Increase Decadron to every 6 hours - s/p TPA -Rectal aspirin -Lipitor -Neurology recommendations -PT/OT/speech evaluation when appropriate -Await echocardiogram, MRI Diabetes mellitus type II -Hold Glucophage -Sliding-scale insulin, added long-acting Levemir -Follow blood sugars - A1C 7.9 Hypertension -Lisinopril on hold . He currently stable -Follow blood pressures Dyslipidemia -Atorvastatin ALLEGRA, resolved Lactic acidosis, resolved Case discussed with neurology. Patient with poor overall prognosis. They did discuss with who would not want any heroics or surgery at this time. DVT prophylaxis: Lovenox Discussed with: Nursing, neurology Anticipated discharge: undetermined Anticipated discharge place: home A total of 35 minutes was spent on the care of this complex patient more than 50% of the time was spent in counseling and care coordination. Active Medications Generic Name Dose Route Start Last Admin Trade Name Freq PRN Reason Stop Dose Admin Hydrocodone Bitart/Acetaminophen 1 each 03/24/21 13:20 03/25/21 08:08 Hydrocodone/Apap 5-325mg 1 Each Tab PO 1 each Q4HR PRN Administration Moderate Pain Al Hydroxide/Mg Hydroxide 30 ml 03/24/21 04:43 Mag Hydrox/Al Hydrox/Simeth 30 Ml Cup PO Q4HR PRN GI Upset Albuterol Sulfate 2 puff 03/24/21 04:02 03/26/21 15:59 Albuterol Hfa Inhaler INHALATION 2 puff RT-Q4H PRN Administration Shortness Of Breath Or Wheezing Artificial Tears 2 drops 03/28/21 00:00 03/28/21 12:33 Artificial Tears-Hypromellose Drops 15 Ml Btl BOTH EYES Not Given Q4H [facility] Ascorbic Acid 1,000 mg 03/24/21 09:00 03/28/21 09:15 Ascorbic Acid 500 Mg Tab PO 1,000 mg DAILY [facility] Administration Aspirin 300 mg 03/28/21 10:30 03/28/21 12:34 Aspirin 300 Mg Supp RECTAL 300 mg DAILY [facility] Administration Atorvastatin Calcium 80 mg 03/26/21 19:00 03/27/21 21:31 Atorvastatin 80 Mg Tab PO 80 mg HS [facility] Administration Cholecalciferol 125 mcg 03/24/21 09:00 03/28/21 09:15 Cholecalciferol 25 Mcg (1000 Iu) Tablet PO 125 mcg DAILY [facility] Administration Dexamethasone Sodium Phosphate 6 mg 03/28/21 09:15 03/28/21 12:32 Dexamethasone Sod Phosphate 10 Mg/Ml 1 Ml Vial IVP 6 mg Q6H [facility] Administration Heparin Sodium (Porcine) 5,000 unit 03/28/21 11:00 03/28/21 12:33 Heparin Sodium,Porcine/Pf 5,000 Unit/0.5 Ml Syringe SQ 5,000 unit Q12H [facility] Administration Azithromycin 500 mg/ Sodium 250 mls @ 250 mls/hr 03/25/21 14:00 03/27/21 17:12 Chloride IVPB 250 mls/hr Q24H [facility] Administration Ceftriaxone Sodium 1 gm/ 50 mls @ 100 mls/hr 03/25/21 15:00 03/27/21 16:41 Sodium Chloride IVPB 100 mls/hr Q24H [facility] Administration Sodium Chloride 1,000 mls @ 100 mls/hr 03/26/21 18:45 03/28/21 11:42 Saline 0.9% IV Not Given .Q10H [facility] Cisatracurium Besylate 200 mg/ 200 mls @ 11.592 mls/hr 03/27/21 19:45 03/27/21 19:58 Sodium Chloride IV 2 mcg/kg/min .[id number] [facility] 11.592 mls/hr Administration Protocol 2 MCG/KG/MIN Propofol 1,000 mg/ IV Solution 100 mls @ 0 mls/hr 03/27/21 20:45 03/28/21 06:02 IV 50 mcg/kg/min .Q0M [facility] 28.98 mls/hr Administration Protocol Titrate Insulin Aspart 0 unit 03/28/21 08:15 03/28/21 11:41 Insulin Aspart (Novolog) 100 Unit/Ml Vial SQ Not Given Q6H [facility] Protocol Insulin Detemir 14 unit 03/28/21 21:00 Insulin Detemir (Levemir) 100 Unit/Ml Syr SQ HS [facility] Melatonin 5 mg 03/24/21 04:39 Melatonin 5 Mg Tablet PO HS PRN Insomnia Miscellaneous Information 1 each 03/24/21 04:02 Pneumonia Protocol Utilized 1 Each Misc PO ONCE PRN Per Protocol Pantoprazole Sodium 40 mg 03/25/21 07:30 03/28/21 06:43 Pantoprazole 40 Mg Tablet PO 40 mg QAM@0730 [facility] Administration Zinc Sulfate 220 mg 03/24/21 09:00 03/28/21 09:15 Zinc Sulfate 220 Mg Cap PO 220 mg DAILY [facility] Administration Objective - Vital Signs Vital signs: Vital Signs Temp 98.4 F 03/28/21 12:00 Pulse 108 H 03/28/21 13:00 Resp 23 03/28/21 13:00 BP 113/76 03/28/21 13:00 Pulse Ox 93 L 03/28/21 13:00 Intake & Output 03/27/21 03/28/21 03/28/21 18:59 06:59 18:59 Intake Total 1200 1367.213 721 Output Total 930 1220 515 Balance 270 147.213 206 Weight 96 kg Intake: IV 1100 1215 721 0.9 1100 1200 700 A-Line 15 21 Intake, IV Titration 100 152.213 Amount Sodium Chloride 0.9% 1, 100 000 ml @ 100 mls/hr IV . Q10H [facility] Rx#:[id number] propofoL 1,000 mg In 152.213 Empty Bag 1 bag @ Titrate IV .Q0M [facility] Rx#: [id number] Output: Urine 930 1220 515 Other: Voiding Method Indwelling Catheter Indwelling Catheter Indwelling Catheter ABP, PAP, CO, CI - Last Documented Arterial Blood Pressure 139/68 - Labs CBC & Chem 7: 03/28/21 04:00 03/28/21 04:00 Labs: Abnormal Lab Results - Last 24 Hours (Table) 03/27/21 03/27/21 03/27/21 Range/Units 19:15 20:22 21:40 WBC (3.8-10.6) k/uL Neutrophils # (1.3-7.7) k/uL Lymphocytes # (1.0-4.8) k/uL D-Dimer (<0.60) mg/L FEU ABG pH 7.28 L (7.35-7.45) ABG pCO2 46 H (35-45) mmHg ABG pO2 220 H (83-108) mmHg ABG Total CO2 (19-24) mmol/L ABG O2 Saturation 99.7 H (94-97) % Chloride (98-107) mmol/L BUN (9-20) mg/dL Glucose (74-99) mg/dL POC Glucose (mg/dL) 239 H 207 H (75-99) mg/dL Calcium (8.4-10.2) mg/dL Lactate Dehydrogenase (313-618) U/L C-Reactive Protein (<1.0) mg/dL 03/28/21 03/28/21 03/28/21 Range/Units 04:00 04:00 04:00 WBC 13.6 H (3.8-10.6) k/uL Neutrophils # 12.3 H (1.3-7.7) k/uL Lymphocytes # 0.7 L (1.0-4.8) k/uL D-Dimer >34.10 H (<0.60) mg/L FEU ABG pH (7.35-7.45) ABG pCO2 (35-45) mmHg ABG pO2 (83-108) mmHg ABG Total CO2 (19-24) mmol/L ABG O2 Saturation (94-97) % Chloride 112 H (98-107) mmol/L BUN 31 H (9-20) mg/dL Glucose 203 H (74-99) mg/dL POC Glucose (mg/dL) (75-99) mg/dL Calcium 8.1 L (8.4-10.2) mg/dL Lactate Dehydrogenase 2025 H (313-618) U/L C-Reactive Protein 23.1 H (<1.0) mg/dL 03/28/21 03/28/21 03/28/21 Range/Units 06:25 06:47 11:33 WBC (3.8-10.6) k/uL Neutrophils # (1.3-7.7) k/uL Lymphocytes # (1.0-4.8) k/uL D-Dimer (<0.60) mg/L FEU ABG pH 7.25 L (7.35-7.45) ABG pCO2 56 H (35-45) mmHg ABG pO2 (83-108) mmHg ABG Total CO2 26 H (19-24) mmol/L ABG O2 Saturation (94-97) % Chloride (98-107) mmol/L BUN (9-20) mg/dL Glucose (74-99) mg/dL POC Glucose (mg/dL) 181 H 199 H (75-99) mg/dL Calcium (8.4-10.2) mg/dL Lactate Dehydrogenase (313-618) U/L C-Reactive Protein (<1.0) mg/dL Microbiology - Last 24 Hours (Table) 03/27/21 22:30 Sputum Culture - Preliminary Sputum 03/26/21 07:36 Gram Stain - Final Sputum Sputum Culture - Final 03/24/21 03:43 Blood Culture - Preliminary Blood No Growth after 96 hours 03/24/21 03:58 Blood Culture - Preliminary Blood No Growth after 96 hours
--- NOTE | 2021-03-28 15:10 | P.PN ---
Subjective Progress Note Date: 03/28/21 Principal diagnosis: COVID-19 pneumonia 71-year-old white male patient with past medical history of diabetes mellitus type II who presented to the emergency department with the one week history of cough, headaches. His initial symptoms started as what felt like a chest cold, and became progressive. Patient follows with Dr. Malik. His cough is nonproductive. His had no nausea vomiting or diarrhea, no abdominal pain. She tested positive for COVID-19 in the emergency department, and his SpO2 upon presentation was 75% on room air. His chest x-ray showed patchy bilateral pneumonia. D-dimer was elevated at greater than 34.1, and CTA chest was completed showing no evidence of pulmonary embolism, and extensive patchy bilateral pneumonia with mediastinal and bronchial adenopathy and small right pleural effusion. She is currently on 8 L of oxygen his pulse ox is 88-90%, he is in sinus mechanism slightly tachycardic with a rate of 105 BPM, afebrile, he is awaiting a bed on medical surgical floor. He is awake and alert, oriented 3, dyspneic, but appears to be in no acute distress. Started on Decadron 6 mg daily, he is started on vitamins C, D, and zinc, and prophylactic dose Lovenox. On 03/25/2021 patient seen in follow-up on medical surgical floor, he is awake and alert, breathing comfortably, he is currently up to 10 L of oxygen pulse ox is 92%. No fever or chills. Mild cough, no chest discomfort. Chest x-ray today shows patchy infiltrates bilaterally, no significant change compared to last chest x-ray. Afebrile, overall patient states he feels better. His labs have been reviewed, white blood cell count is 11.7, hemoglobin is 15.4, d-dimer is down to 3.9, sodium is 137, potassium 4.5, BUN is 42, creatinine is 1.1, LDH is 643, CRP is 21.8. Troponin was negative at less than 0.012, BNP was 144. Pro-calcitonin level was elevated at 1.51 was placed on empiric antibiotic coverage with a combination of azithromycin and Rocephin The patient is seen today 03/26/2021 in follow-up on the regular medical floor. Currently sitting up in a chair at the bedside. Awake and alert in no acute distress. He is still requiring 8 L high flow nasal cannula to maintain O2 saturations at 91%. No worsening shortness of breath, cough or congestion. A bit better today compared to yesterday. He's been afebrile. Hemodynamically stable. Blood cultures reveal no growth. Sputum culture reveals no growth. White count 13.2. Hemoglobin 15.5. Sodium 134. Potassium 4.8. Creatinine 0.93. He remains on ceftriaxone and azithromycin. Continued on Decadron, Lovenox, vitamin supplements. The patient is seen today 03/27/2021 in follow-up in the intensive care unit. The patient developed left-sided weakness last evening and a code stroke was ca lled. CT angiogram revealed a 1.5 segment of significant stenosis of the proximal right middle cerebral artery. No flow seen at A1 segment of the right anterior cerebral artery. There is diminished contrast density in the intracranial right internal carotid artery suggestive of decreased flow. He was transferred to the ICU and TPA was given. The patient remains he remains awake and alert, oriented to self and time. He does have left-sided neglect. His left side is flaccid. He is requiring 15 L high flow nasal cannula plus a nonrebreather mask to maintain O2 saturations in the low 90s. Follow-up arterial blood gases revealed a PaO2 of 73, pCO2 of 31 and a pH of 7.48. He is 0.9 normal saline at 100 mL per hour. He remains on Decadron vitamin supplements. He is on antibiotics in the form of ceftriaxone and azithromycin. White count 13.0. Hemoglobin 14.2. Platelets 248. Lymphocytes 0.5. Sodium 137. Potassium 4.3. Chloride 108. Bicarb 20. Creatinine 0.94. Glucose 198. The patient is seen today 03/28/2021 in follow-up in the intensive care unit. His condition continued to deteriorate. He was intubated and placed on mechanical ventilator yesterday. Currently on assist control at a rate of 24, tidal volume 450, FiO2 70% and a PEEP of 5. Morning blood gases revealed a PaO2 of 92, pCO2 56, pH 7.25 and that was on 75% FiO2. He is currently sedated on propofol at 50 mcg/kg/m. Nimbex at 2 mcg/kg/m. He remains on Decadron, human supplements, heparin for DVT prophylaxis, bronchodilators. Chest x-ray reveals increasing bilateral multifocal and confluent opacities consistent with COVID-19 pneumonia. Echocardiogram revealed preserved left ventricular systolic function with ejection fraction 55-60%. Severe pulmonary hypertension. White count 13.6. Hemoglobin 14.6. Lymphocytes 0.7. D-dimer greater than 34. Sodium 141. Potassium 5.0. Creatinine 0.85. LDH 5. C-reactive protein 23. Glucose 203. Follow-up computed tomography scan of the brain done yesterday reveals a large right cerebral hemisphere acute infarct which is a change compared to the previous. There is evidence of cerebral edema. No hemorrhage. Infarct in the right middle cerebral artery distribution and also involvement of the right posterior cerebral artery distribution. Objective - Vital Signs Vital signs: Vital Signs Temp 98.4 F 03/28/21 12:00 Pulse 108 H 03/28/21 13:00 Resp 23 03/28/21 13:00 BP 113/76 03/28/21 13:00 Pulse Ox 93 L 03/28/21 13:00 Intake & Output 03/27/21 03/28/21 03/28/21 18:59 06:59 18:59 Intake Total 1200 1367.213 721 Output Total 930 1220 515 Balance 270 147.213 206 Weight 96 kg 96 kg Intake: IV 1100 1215 721 0.9 1100 1200 700 A-Line 15 21 Intake, IV Titration 100 152.213 Amount Sodium Chloride 0.9% 1, 100 000 ml @ 100 mls/hr IV . Q10H [facility] Rx#:[id number] propofoL 1,000 mg In 152.213 Empty Bag 1 bag @ Titrate IV .Q0M [facility] Rx#: [id number] Output: Urine 930 1220 515 Other: Voiding Method Indwelling Catheter Indwelling Catheter Indwelling Catheter ABP, PAP, CO, CI - Last Documented Arterial Blood Pressure 139/68 - Exam GENERAL EXAM: Intubated, sedated paralyzed 71-year-old male patient, on 70% FiO2 via the mechanical ventilator HEAD: Normocephalic/atraumatic. EYES: Normal reaction of pupils, equal size. Conjunctiva pink, sclera white. NOSE: Clear with pink turbinates. THROAT: No erythema or exudates. NECK: No masses, no JVD, no thyroid enlargement, no adenopathy. CHEST: No chest wall deformity. Symmetrical expansion. LUNGS: Equal air entry with diffuse crackles bilaterally CVS: Regular rate and rhythm, normal S1 and S2, no gallops, no murmurs, no rubs ABDOMEN: Soft, nontender. No hepatosplenomegaly, normal bowel sounds, no guarding or rigidity. EXTREMITIES: No clubbing, no edema, no cyanosis, 2+ pulses and upper and lower extremities. MUSCULOSKELETAL: Muscle strength and tone normal. SPINE: No scoliosis or deformity SKIN: No rashes CENTRAL NERVOUS SYSTEM: Unable to assess as patient is paralyzed and on the mechanical ventilator PSYCHIATRIC: Unable to assess as patient is paralyzed and on the mechanical ventilator - Labs CBC & Chem 7: 03/28/21 04:00 03/28/21 04:00 Labs: Abnormal Lab Results - Last 24 Hours (Table) 03/27/21 03/27/21 03/27/21 Range/Units 19:15 20:22 21:40 WBC (3.8-10.6) k/uL Neutrophils # (1.3-7.7) k/uL Lymphocytes # (1.0-4.8) k/uL D-Dimer (<0.60) mg/L FEU ABG pH 7.28 L (7.35-7.45) ABG pCO2 46 H (35-45) mmHg ABG pO2 220 H (83-108) mmHg ABG Total CO2 (19-24) mmol/L ABG O2 Saturation 99.7 H (94-97) % Chloride (98-107) mmol/L BUN (9-20) mg/dL Glucose (74-99) mg/dL POC Glucose (mg/dL) 239 H 207 H (75-99) mg/dL Calcium (8.4-10.2) mg/dL Lactate Dehydrogenase (313-618) U/L C-Reactive Protein (<1.0) mg/dL 03/28/21 03/28/21 03/28/21 Range/Units 04:00 04:00 04:00 WBC 13.6 H (3.8-10.6) k/uL Neutrophils # 12.3 H (1.3-7.7) k/uL Lymphocytes # 0.7 L (1.0-4.8) k/uL D-Dimer >34.10 H (<0.60) mg/L FEU ABG pH (7.35-7.45) ABG pCO2 (35-45) mmHg ABG pO2 (83-108) mmHg ABG Total CO2 (19-24) mmol/L ABG O2 Saturation (94-97) % Chloride 112 H (98-107) mmol/L BUN 31 H (9-20) mg/dL Glucose 203 H (74-99) mg/dL POC Glucose (mg/dL) (75-99) mg/dL Calcium 8.1 L (8.4-10.2) mg/dL Lactate Dehydrogenase 2025 H (313-618) U/L C-Reactive Protein 23.1 H (<1.0) mg/dL 03/28/21 03/28/21 03/28/21 Range/Units 06:25 06:47 11:33 WBC (3.8-10.6) k/uL Neutrophils # (1.3-7.7) k/uL Lymphocytes # (1.0-4.8) k/uL D-Dimer (<0.60) mg/L FEU ABG pH 7.25 L (7.35-7.45) ABG pCO2 56 H (35-45) mmHg ABG pO2 (83-108) mmHg ABG Total CO2 26 H (19-24) mmol/L ABG O2 Saturation (94-97) % Chloride (98-107) mmol/L BUN (9-20) mg/dL Glucose (74-99) mg/dL POC Glucose (mg/dL) 181 H 199 H (75-99) mg/dL Calcium (8.4-10.2) mg/dL Lactate Dehydrogenase (313-618) U/L C-Reactive Protein (<1.0) mg/dL Microbiology - Last 24 Hours (Table) 03/27/21 22:30 Gram Stain - Preliminary Sputum Sputum Culture - Preliminary 03/26/21 07:36 Gram Stain - Final Sputum Sputum Culture - Final 03/24/21 03:43 Blood Culture - Preliminary Blood No Growth after 96 hours 03/24/21 03:58 Blood Culture - Preliminary Blood No Growth after 96 hours Assessment and Plan Assessment: 1 Acute hypoxic respiratory failure related to acute COVID-19 pneumonia, worsening pulmonary status and required intubation and mechanical ventilatory support on 03/27/2021. 2 Acute left-sided weakness and code stroke on 03/26/2021 status post TPA infusion. CT angiogram revealed a 1.5 cm segment of significant stenosis of the proximal right middle cerebral artery. He continues with left-sided weakness and left-sided neglect. Follow-up computed tomography scan of the brain done 11/24/2020 reveals a large right cerebral hemisphere acute infarct which is a change compared to the previous. There is evidence of cerebral edema. No hemorrhage. Infarct in the right middle cerebral artery distribution and also involvement of the right posterior cerebral artery distribution. 3 Elevated d-dimer with no CTA evidence of pulmonary embolism, Dopplers negative 3 Acute kidney injury that improved 4 Mild lactic acidosis, patient was given IV fluid bolus in the emergency department, repeat lactic acid is pending 5 Diabetes mellitus type 2 6 Elevated pro-calcitonin with the possibility of bacterial infection and pos sibility of bacterial pneumonia Plan: The patient was seen and evaluated by Dr. Barfield X-ray, ABGs and labs reviewed Increase respiratory rate 28, increase PEEP to 10 Computed tomography scan of the brain reviewed Prognosis remains quite poor Neurology had discussions with the family today We will attempt daily interruption of sedation in the a.m. we will continue to follow Critical care time 38 minutes I, the cosigning physician, performed a history & physical examination of the patient. Lungs sounds bibasilar crackles. Maintaining good O2 saturations in the 90s on 70% FiO2 and a PEEP of 10 via the mechanical ventilator. I discussed the assessment and plan of care with my nurse practitioner, Raegan Meyers. I attest to the above note as dictated by her.
[2021-03-28] MEDS: AZITHROMYCIN 500 MG in SODIUM CHLORIDE 0.9% 250 ML IVPB SCH (16:12)
[2021-03-28 16:21] LABS: Glucose,Whole Blood 212 mg/dL (75-99)
[2021-03-28] MEDS: CISATRACURIUM 200 MG in SODIUM CHLORIDE 0.9% 180 ML IV SCH (16:21)
[2021-03-28 19:49] LABS: Glucose,Whole Blood 212 mg/dL (75-99)
[2021-03-28] MEDS: ATORVASTATIN 80 MG TAB PO SCH (20:38)
[2021-03-28] MEDS ORDERED: INSULIN DETEMIR (LEVEMIR) 100 UNIT/ML SYR SQ SCH (21:00)
[2021-03-29] MEDS: DEXAMETHASONE SOD PHOSPHATE 10 MG/ML 1 ML VIAL IVP SCH ×4 (02:45→20:32)
[2021-03-29 02:51] LABS: Glucose,Whole Blood 202 mg/dL (75-99)
[2021-03-29] MEDS: INSULIN ASPART (NovoLOG) 100 UNIT/ML VIAL SQ SCH ×7 (02:52→20:29)
[2021-03-29] MEDS: ARTIFICIAL TEARS-HYPROMELLOSE DROPS 15 ML BTL BOTH EYES SCH ×5 (03:11→19:48)
[2021-03-29] MEDS: SODIUM CHLORIDE 0.9% 1,000 ML IV SCH ×2 (04:37→15:16)
[2021-03-29 05:03] LABS: Basophils % (A) 0 %; Eosinophils % (A) 0 %; HCT 41.8 % (39.0-53.0); HGB 14.2 gm/dL (13.0-17.5); Lymphocytes # (A) 0.3 k/uL (1.0-4.8); Lymphocytes % (A) 3 %; MCH 30.9 pg (25.0-35.0); MCV 90.9 fL (80.0-100.0); Mean Platelet Volume 8.1; Monocytes # (A) 0.2 k/uL (0-1.0); Monocytes % (A) 2 %; Neutrophils # (A) 9.4 k/uL (1.3-7.7); Neutrophils % (A) 94 %; Platelet Count 143 k/uL (150-450); Poikilocytosis Slight; RDW 13.3 % (11.5-15.5)
[2021-03-29 05:31] LABS: African American GFR (CKD) >90 (>60 ml/min/1.73 sqM); Anion Gap 5 mmol/L; Blood Urea Nitrogen 35 mg/dL (9-20); Calcium 8.6 mg/dL (8.4-10.2); Carbon Dioxide 25 mmol/L (22-30); Chloride 112 mmol/L (98-107); Glucose 263 mg/dL (74-99); Non-African American GFR(CKD) 89 (>60 ml/min/1.73 sqM); Potassium 5.2 mmol/L (3.5-5.1); Sodium 142 mmol/L (137-145)
[2021-03-29 06:20] LABS: ABG Base Excess -1.3 mmol/L; ABG HCO3 25 mmol/L (21-25); ABG PCO2 52 mmHg (35-45); ABG PH 7.31 (7.35-7.45); ABG PO2 130 mmHg (83-108); Allen Test Performed? Yes
[2021-03-29] MEDS: CISATRACURIUM 200 MG in SODIUM CHLORIDE 0.9% 180 ML IV SCH ×2 (06:42→18:59)
[2021-03-29] MEDS: PANTOPRAZOLE 40 MG TABLET PO SCH (06:42)
--- NOTE | 2021-03-29 07:03 | XR ---
EXAMINATION TYPE: XR chest 1V portable DATE OF EXAM: 03/29/2021 CLINICAL HISTORY: Difficulty breathing progress study. TECHNIQUE: Single AP portable semiupright view of the chest is obtained. COMPARISON: Chest x-ray from one day earlier and older studies FINDINGS: Stable endotracheal and orogastric tubes. Persistent bilateral multifocal and confluent opacities. Cardiac silhouette size is stable and within normal limits. Small to tiny left pleural effusion redemonstrated. Degenerative change bilateral gle nohumeral joints incidentally noted. IMPRESSION: Bilateral multifocal and confluent opacities consistent with covid-19 infection redemonst rated. No significant change from one day earlier.
[2021-03-29 08:15] LABS: Glucose,Whole Blood 257 mg/dL (75-99)
[2021-03-29] MEDS: ZINC SULFATE 220 MG CAP PO SCH (09:03)
[2021-03-29] MEDS: CHOLECALCIFEROL 25 MCG (1000 IU) TABLET PO SCH (09:03)
[2021-03-29] MEDS: ASPIRIN 300 MG SUPP RECTAL SCH (09:03)
[2021-03-29] MEDS: ASCORBIC ACID 500 MG TAB PO SCH (09:03)
[2021-03-29] MEDS: HEPARIN SODIUM,PORCINE/PF 5,000 UNIT/0.5 ML SYRINGE SQ SCH (11:28)
[2021-03-29 12:07] LABS: African American GFR (CKD) >90 (>60 ml/min/1.73 sqM); Anion Gap 3 mmol/L; Blood Urea Nitrogen 36 mg/dL (9-20); Calcium 8.5 mg/dL (8.4-10.2); Carbon Dioxide 25 mmol/L (22-30); Chloride 113 mmol/L (98-107); Glucose 291 mg/dL (74-99); Magnesium 2.3 mg/dL (1.6-2.3); Non-African American GFR(CKD) 87 (>60 ml/min/1.73 sqM); Potassium 5.1 mmol/L (3.5-5.1); Sodium 141 mmol/L (137-145)
--- NOTE | 2021-03-29 12:20 | P.PN ---
Subjective Progress Note Date: 03/29/21 Principal diagnosis: Dyspnea, hypoxia, COVID-19 71-year-old white male patient with past medical history of diabetes mellitus type II who presented to the emergency department with the one week history of cough, headaches. His initial symptoms started as what felt like a chest cold, and became progressive. Patient follows with Dr. Malik. His cough is nonproductive. His had no nausea vomiting or diarrhea, no abdominal pain. She tested positive for COVID-19 in the emergency department, and his SpO2 upon presentation was 75% on room air. His chest x-ray showed patchy bilateral pneumonia. D-dimer was elevated at greater than 34.1, and CTA chest was completed showing no evidence of pulmonary embolism, and extensive patchy bilateral pneumonia with mediastinal and bronchial adenopathy and small right pleural effusion. She is currently on 8 L of oxygen his pulse ox is 88-90%, he is in sinus mechanism slightly tachycardic with a rate of 105 BPM, afebrile, he is awaiting a bed on medical surgical floor. He is awake and alert, oriented 3, dyspneic, but appears to be in no acute distress. Started on Decadron 6 mg daily, he is started on vitamins C, D, and zinc, and prophylactic dose Lovenox. On 03/25/2021 patient seen in follow-up on medical surgical floor, he is awake and alert, breathing comfortably, he is currently up to 10 L of oxygen pulse ox is 92%. No fever or chills. Mild cough, no chest discomfort. Chest x-ray today shows patchy infiltrates bilaterally, no significant change compared to last chest x-ray. Afebrile, overall patient states he feels better. His labs have been reviewed, white blood cell count is 11.7, hemoglobin is 15.4, d-dimer is down to 3.9, sodium is 137, potassium 4.5, BUN is 42, creatinine is 1.1, LDH is 643, CRP is 21.8. Troponin was negative at less than 0.012, BNP was 144. Pro-calcitonin level was elevated at 1.51 was placed on empiric antibiotic coverage with a combination of azithromycin and Rocephin On 03/29/2021 patient seen in follow-up in the intensive care unit, he is sedated, and paralyzed on the assist control mode of ventilation with a rate of 24, tidal and was 450, FiO2 50% and PEEP of 5, this was blood gas shows pO2 1:30, pCO2 of 52, pH of 7.31 this was done and FiO2 of 60% and above mentioned vent settings. He is currently on Diprivan is a 50 mics per kilo per minute, and index is at 2 mics per kilo per minute, and maintenance IV fluids with point normal saline at a rate of 100 ML per hour. His chest x-ray shows bilateral multifocal and confluent opacities consistent with COVID-19 infection without significant change compared the day earlier. Subsequently his FiO2 has been tu rned down to 40% and patient is maintaining O2 saturations at around 95%, hemodynamically patient is stable, he is in sinus mechanism with a rate of 90 BPM, he is tolerating tube feedings with vital AF at a rate of 42 with a goal 42. Today's labs have been reviewed showing improving white count of 10, hemoglobin is 14.2, sodium is 142, potassium is 5.2, chloride is 112, BUN of 35, creatinine 0.81. His last set of inflammatory markers from 03/28/2021 showed worsened LDH which was up to 2024, and CRP was up to 23.1. Patient remains on the empiric antibiotic in the form of azithromycin and Rocephin for possibility of underlying bacterial infection that was suggested by elevated pro-calcitonin level on admission of 1.51. His Legionella urine antigen came back negative. His blood cultures have been negative, urine culture culture is pending. Exhalation is on Decadron 6 blood gram every 6 hours for cerebral edema, patient received mannitol yesterday. His last CT of the brain from 03/27/2021 showed large right cerebral hemisphere acute infarct and cerebral edema, no hemorrhage. There was infarct in the right middle cerebral artery distribution and involvement of the right posterior cerebral artery distribution. Echocardiogram showed EF of 55-60%, right ventricle was moderately enlarged, no significant valvular disease, however there was severe pulmonary hypertension with right- sided pressure of 65.3 mmHg. Objective - Vital Signs Vital signs: Vital Signs Temp 98.6 F 03/29/21 08:00 Pulse 92 03/29/21 11:00 Resp 24 03/29/21 11:00 BP 116/71 03/29/21 10:00 Pulse Ox 94 L 03/29/21 11:00 Intake & Output 03/28/21 03/29/21 03/29/21 18:59 06:59 18:59 Intake Total 1536 1977.106 997.949 Output Total 1240 1270 550 Balance 296 707.106 447.949 Weight 97.4 kg Intake: IV 1236 1236 515 0.9 1200 1200 500 A-Line 36 36 15 Intake, IV Titration 300 331.106 252.949 Amount Cisatracurium 200 mg In 200 132.245 55.062 Sodium Chloride 0.9% 180 ml @ 2 MCG/KG/MIN 11.592 mls/hr IV .[id number] [facility] Rx #:[id number] propofoL 1,000 mg In 100 198.861 197.887 Empty Bag 1 bag @ Titrate IV .Q0M [facility] Rx#: [id number] Tube Feeding 230 150 Other 180 80 Output: Urine 1240 1270 550 Other: Voiding Method Indwelling Catheter Indwelling Catheter Indwelling Catheter ABP, PAP, CO, CI - Last Documented Arterial Blood Pressure 107/55 - Exam GENERAL EXAM: Intubated, sedated and paralyzed 71-year-old white male, assist control mode of ventilation with FiO2 of 50% and PEEP of 5 HEAD: Normocephalic/atraumatic. EYES: Normal reaction of pupils, equal size. Conjunctiva pink, sclera white. NOSE: Clear with pink turbinates. THROAT: No erythema or exudates. NECK: No masses, no JVD, no thyroid enlargement, no adenopathy. CHEST: No chest wall deformity. Symmetrical expansion. LUNGS: Equal air entry with diffuse crackles bilaterally CVS: Regular rate and rhythm, normal S1 and S2, no gallops, no murmurs, no rubs ABDOMEN: Soft, nontender. No hepatosplenomegaly, normal bowel sounds, no guarding or rigidity. EXTREMITIES: No clubbing, no edema, no cyanosis, 2+ pulses and upper and lower extremities. MUSCULOSKELETAL: Muscle strength and tone normal. SPINE: No scoliosis or deformity SKIN: No rashes CENTRAL NERVOUS SYSTEM: Debated, sedated and paralyzed No focal deficits, tone is normal in all 4 extremities. - Labs CBC & Chem 7: 03/29/21 04:15 03/29/21 04:15 Labs: Abnormal Lab Results - Last 24 Hours (Table) 03/28/21 03/28/21 03/29/21 Range/Units 16:19 19:47 02:48 Plt Count (150-450) k/uL Neutrophils # (1.3-7.7) k/uL Lymphocytes # (1.0-4.8) k/uL ABG pH (7.35-7.45) ABG pCO2 (35-45) mmHg ABG pO2 (83-108) mmHg ABG O2 Saturation (94-97) % Potassium (3.5-5.1) mmol/L Chloride (98-107) mmol/L BUN (9-20) mg/dL Glucose (74-99) mg/dL POC Glucose (mg/dL) 212 H 212 H 202 H (75-99) mg/dL 03/29/21 03/29/21 03/29/21 Range/Units 04:15 04:15 06:25 Plt Count 143 L (150-450) k/uL Neutrophils # 9.4 H (1.3-7.7) k/uL Lymphocytes # 0.3 L (1.0-4.8) k/uL ABG pH 7.31 L (7.35-7.45) ABG pCO2 52 H (35-45) mmHg ABG pO2 130 H (83-108) mmHg ABG O2 Saturation 99.0 H (94-97) % Potassium 5.2 H (3.5-5.1) mmol/L Chloride 112 H (98-107) mmol/L BUN 35 H (9-20) mg/dL Glucose 263 H (74-99) mg/dL POC Glucose (mg/dL) (75-99) mg/dL 03/29/21 Range/Units 08:14 Plt Count (150-450) k/uL Neutrophils # (1.3-7.7) k/uL Lymphocytes # (1.0-4.8) k/uL ABG pH (7.35-7.45) ABG pCO2 (35-45) mmHg ABG pO2 (83-108) mmHg ABG O2 Saturation (94-97) % Potassium (3.5-5.1) mmol/L Chloride (98-107) mmol/L BUN (9-20) mg/dL Glucose (74-99) mg/dL POC Glucose (mg/dL) 257 H (75-99) mg/dL Microbiology - Last 24 Hours (Table) 03/24/21 03:58 Blood Culture - Preliminary Blood No Growth after 120 hours 03/24/21 03:43 Blood Culture - Preliminary Blood No Growth after 120 hours 03/27/21 22:30 Gram Stain - Preliminary Sputum Sputum Culture - Preliminary 03/26/21 07:36 Gram Stain - Final Sputum Sputum Culture - Final Assessment and Plan Plan: Assessment: #1. Acute hypoxic respiratory failure related to acute COVID-19 pneumonia, patient presented with 1 week history of symptoms with cough, shortness of breath, headaches. Tested positive in the emergency department on 03/23/2021. Patient is not a candidate for Remdesivir related to his increased oxygen demand, patient currently on 8 L of oxygen. Patient was being treated supportively. However his pulmonary status has worsened in part due to his acute stroke, and patient was intubated and placed on mechanical ventilator on 03/27/2021 primarily for protection of his airway. Currently on FiO2 of 50% and PEEP of 5 #2. Acute large right CVA status post IV TPA on 03/26/2021, bleed related to acute COVID-19. With acute right MCA occlusion #3. Cerebral edema due to the above, patient is currently on Decadron, has received mannitol #4. History of craniotomy over the left hemisphere after suffering a fall and i ntracranial bleeding in 1987 #5. Elevated d-dimer with no CTA evidence of pulmonary embolism, we will check lower extremity Dopplers #6. Acute kidney injury, resolved #7. Mild lactic acidosis, patient was given IV fluid bolus in the emergency department, repeat lactic acid is pending #8. Diabetes mellitus type 2 #9. Elevated pro-calcitonin with the possibility of bacterial infection and possibility of bacterial pneumonia, patient was covered with azithromycin and Rocephin, sputum cultures and Legionella urine antigen are negative Plan: Today's chest x-ray and labs have been reviewed Patient has maintained stable oxygenation on 50% FiO2 and PEEP of 5 No acute events overnight FiO2 has been dropped down to 40% We'll stop the paralytics, if the patient maintains stable O2 saturations we will attempt sedation holiday Continue current dose Decadron Anticoagulation per neurology Discontinue azithromycin, continue Rocephin for 1 more day Continue supportive treatment Overall prognosis is extremely guarded pending evaluation of patient's neurological status Follow-up labs tomorrow, including CBC, CMP, LDH, CRP and d-dimer We'll continue to follow I performed a history & physical examination of the patient and discussed their management with my nurse practitioner, Mary Davis. I reviewed the nurse practitioner's note and agree with the documented findings and plan of care. Lung sounds are positive for bibasilar crackles throughout the lung gotti. The findings and the impression was discussed with the patient. I attest to the documentation by the nurse practitioner. Time with Patient: Greater than 30
--- NOTE | 2021-03-29 13:40 | P.PN ---
Subjective Progress Note Date: 03/29/21 (delayed charting seen at 10am) Principal diagnosis: shortness of breath Patient is a 71-year-old male with a history of diabetes mellitus and hypertension who presented to the emergency department with complaints of fevers, headache, muscle aches and poor appetite. In the emergency department he underwent an extensive evaluation. On arrival he was found to be satting 75% on room air and had a heart rate of 120. Urinalysis is remarkable for lactic acid of 2.5, creatinine 1.38, and COVID-19 testing was positive. He underwent a CTA of the chest which showed no evidence of pulmonary embolism but did demonstrate extensive patchy bilateral pneumonia. He was admitted and was started on dexamethasone and IV fluids. He was seen by pulmonary critical care who recommended lower extremity venous Dopplers. These were completed without evidence of DVT. He did have a pro-calcitonin drawn which was elevated at 1.51. Therefore he was kept on Rocephin and Zithromax as bacterial coinfection could not be eliminated. He continued to require high flow nasal cannula. His d-d roberta improved. On the afternoon of 03/26 he developed sudden onset left-sided flaccid paralysis. Code stroke was called. He underwent a head CT which showed no acute process and a CTA head and neck which showed narrowing of the right MCA. Interventional neurology was contacted who did not recommend TPA or intervention at that time. He continued to have worsening of his symptoms over the next 2 hours and they were again recontacted and recommended TPA. This was administered on 03/26. On 03/27 the patient continued to have difficulty with swallowing, left-sided facial droop, and left-sided paralysis. He had worsening respiratory status and subsequently required intubation on 03/27. He then required paralytic. Repeat head CT demonstrated cerebral edema without midline shift or significant mass effect. Patient seen and examined at bedside. He is sedated and paralyzed on the vent. No other acute events overnight. General:ill appearing, no distress, appears at stated age Derm: warm, dry Head: atraumatic, normocephalic, symmetric Eyes: Pupils pinpoint and nonreactive, no lip lesion, anicteric sclera Mouth: no lip lesion, mucus membranes moist Cardiovascular: S1S2 reg, no murmur, positive posterior tibial pulse bilateral, Lungs: Clear to auscultation bilaterally, no accessory muscle use, on vent Abdominal: soft, nontender to palpation, no guarding, no appreciable organ omegaly Ext: no gross muscle atrophy, no edema, no contractures Neuro: on paralytic Psych: sedated and intubated COVID-19 pneumonitis Acute hypoxic respiratory failure -Continue with dexamethasone -Pulmonary recommendations: Not a candidate for Remdesivir -Continue vitamin C, vitamin D, zinc -Unable to rule out bacterial component with pro-calcitonin of 1.5 and will continue with Zithromax and Rocephin. Sputum culture pending. Right MCA Acute ischemic CVA with cerebral edema -Decadron every 6 hours, s/p manitol - s/p TPA -Aspirin -Lipitor -Neurology recommendations -PT/OT/speech evaluation when appropriate - await repeat head CT - poor overall prognosis - attempt to wean Nimbex if okay with Diabetes mellitus type II with hyperglycemia -Hold Glucophage -Sliding-scale insulin, added long-acting Levemir -Follow blood sugars - A1C 7.9 Hypertension -Lisinopril on hold, BP currently stable -Follow blood pressures Dyslipidemia -Atorvastatin Severe Pulm HTN - outpatient follow-up ALLEGRA, resolved Lactic acidosis, resolved DVT prophylaxis: Lovenox Discussed with: Nursing, neurology Anticipated discharge: undetermined Anticipated discharge place: home A total of 35 minutes was spent on the care of this complex patient more than 50% of the time was spent in counseling and care coordination. Objective - Vital Signs Vital signs: Vital Signs Temp 98.8 F 03/29/21 12:00 Pulse 93 03/29/21 12:00 Resp 33 H 03/29/21 12:00 BP 107/76 03/29/21 12:00 Pulse Ox 91 L 03/29/21 12:00 Intake & Output 03/28/21 03/29/21 03/29/21 18:59 06:59 18:59 Intake Total 1536 9144.499 5370.949 Output Total 1240 1270 650 Balance 296 707.106 570.949 Weight 97.4 kg Intake: IV 1236 1236 618 0.9 1200 1200 600 A-Line 36 36 18 Intake, IV Titration 300 331.106 252.949 Amount Cisatracurium 200 mg In 200 132.245 55.062 Sodium Chloride 0.9% 180 ml @ 2 MCG/KG/MIN 11.592 mls/hr IV .[id number] [facility] Rx #:[id number] propofoL 1,000 mg In 100 198.861 197.887 Empty Bag 1 bag @ Titrate IV .Q0M [facility] Rx#: [id number] Tube Feeding 230 180 Other 180 170 Output: Urine 1240 1270 650 Other: Voiding Method Indwelling Catheter Indwelling Catheter Indwelling Catheter ABP, PAP, CO, CI - Last Documented Arterial Blood Pressure 144/66 - Labs CBC & Chem 7: 03/29/21 04:15 03/29/21 11:53 Labs: Abnormal Lab Results - Last 24 Hours (Table) 03/28/21 03/28/21 03/29/21 Range/Units 16:19 19:47 02:48 Plt Count (150-450) k/uL Neutrophils # (1.3-7.7) k/uL Lymphocytes # (1.0-4.8) k/uL ABG pH (7.35-7.45) ABG pCO2 (35-45) mmHg ABG pO2 (83-108) mmHg ABG O2 Saturation (94-97) % Potassium (3.5-5.1) mmol/L Chloride (98-107) mmol/L BUN (9-20) mg/dL Glucose (74-99) mg/dL POC Glucose (mg/dL) 212 H 212 H 202 H (75-99) mg/dL 03/29/21 03/29/21 03/29/21 Range/Units 04:15 04:15 06:25 Plt Count 143 L (150-450) k/uL Neutrophils # 9.4 H (1.3-7.7) k/uL Lymphocytes # 0.3 L (1.0-4.8) k/uL ABG pH 7.31 L (7.35-7.45) ABG pCO2 52 H (35-45) mmHg ABG pO2 130 H (83-108) mmHg ABG O2 Saturation 99.0 H (94-97) % Potassium 5.2 H (3.5-5.1) mmol/L Chloride 112 H (98-107) mmol/L BUN 35 H (9-20) mg/dL Glucose 263 H (74-99) mg/dL POC Glucose (mg/dL) (75-99) mg/dL 03/29/21 03/29/21 Range/Units 08:14 11:53 Plt Count (150-450) k/uL Neutrophils # (1.3-7.7) k/uL Lymphocytes # (1.0-4.8) k/uL ABG pH (7.35-7.45) ABG pCO2 (35-45) mmHg ABG pO2 (83-108) mmHg ABG O2 Saturation (94-97) % Potassium (3.5-5.1) mmol/L Chloride 113 H (98-107) mmol/L BUN 36 H (9-20) mg/dL Glucose 291 H (74-99) mg/dL POC Glucose (mg/dL) 257 H (75-99) mg/dL Microbiology - Last 24 Hours (Table) 03/24/21 03:58 Blood Culture - Preliminary Blood No Growth after 120 hours 03/24/21 03:43 Blood Culture - Preliminary Blood No Growth after 120 hours 03/27/21 22:30 Gram Stain - Preliminary Sputum Sputum Culture - Preliminary 03/26/21 07:36 Gram Stain - Final Sputum Sputum Culture - Final
--- NOTE | 2021-03-29 13:59 | CT ---
EXAMINATION TYPE: CT brain wo con DATE OF EXAM: 03/29/2021 HISTORY: Evaluate progression of right hemispheric stroke CT DLP: 1102.4 mGycm. Automated Exposure Control for Dose Reduction was Utilized. TECHNIQUE: CT scan of the head is performed without contrast. COMPARISON: CT brain 2 and 3 days ago. FINDINGS: Large infarct in the right MCA distribution with arboleda-white matter blurring and sulcal effa cement involving frontal parietal and temporal lobes is now present. There is now 10 mm midline shift to the left axial image 36 level of septum pellucidum. There is some mass effect along the right aby tral aspect of the superior brittani axial image 29. Left frontal salomón hole redemonstrated. Note is made of endotracheal and orogastric tubes on localizer. The globes are intact and the visualized sinuses a re clear. Hyperdense right MCA sign axial image 29 IMPRESSION: Significant evolution of the acute large right MCA infarct with local mass effect and mid line shift. Hyperdense right MCA sign consistent with complete occlusion. A [place] level critical message alert has been initiated for Michael Orantes MD via the [facility] System on 03/29/2021 1:56 PM. This message alert has been sent to Michael Orantes MD vi a the preferences provided by the clinician for the receipt of Radiology Critical Findings. Message I D [id number].
[2021-03-29 14:04] LABS: Glucose,Whole Blood 276 mg/dL (75-99)
[2021-03-29] MEDS ORDERED: SALINE IV ONE (15:15)
[2021-03-29] MEDS ORDERED: MANNITOL IV ONE (15:15)
--- NOTE | 2021-03-29 15:34 | P.PN ---
Subjective Progress Note Date: 03/29/21 Patient was seen at bedside and per the patient nurse the patient continues to be on IV propofol 50mcg/kg/min and Nimbex 2mcg/kg/min.Per nurse she stated his sedation were not stopped yesterday. I asked the nurse to stop Nimbex in the early AM but was stopped close to 11:30AM today. Patient received one dose of IV mannitol. He continues to be intubated and on ventilator and his conditions is about the same. Objective - Vital Signs Vital signs: Vital Signs Temp 98.8 F 03/29/21 12:00 Pulse 93 03/29/21 12:00 Resp 33 H 03/29/21 12:00 BP 107/76 03/29/21 12:00 Pulse Ox 91 L 03/29/21 12:00 Intake & Output 03/28/21 03/29/21 03/29/21 18:59 06:59 18:59 Intake Total 1536 2912.383 0956.949 Output Total 1240 1270 650 Balance 296 707.106 570.949 Weight 97.4 kg Intake: IV 1236 1236 618 0.9 1200 1200 600 A-Line 36 36 18 Intake, IV Titration 300 331.106 252.949 Amount Cisatracurium 200 mg In 200 132.245 55.062 Sodium Chloride 0.9% 180 ml @ 2 MCG/KG/MIN 11.592 mls/hr IV .[id number] [facility] Rx #:[id number] propofoL 1,000 mg In 100 198.861 197.887 Empty Bag 1 bag @ Titrate IV .Q0M [facility] Rx#: [id number] Tube Feeding 230 180 Other 180 170 Output: Urine 1240 1270 650 Other: Voiding Method Indwelling Catheter Indwelling Catheter Indwelling Catheter ABP, PAP, CO, CI - Last Documented Arterial Blood Pressure 144/66 - Exam GENERAL: The patient is lying, and does not seem in acute distress. He is on IV Propofol. Nimbex is held for about 2 1/2 to 3 hours prior to physical exam. LUNG: Is intubated and on ventilator. NEUROLOGICAL: Limited because patient in on IV propofol 50mcg/kg/min. Nimbex 2mcg/kg/min was stopped about 2 1/2 to 3 hours prior to my exam. Higher mental function: Could not assess. Cranial nerves: The pupils are pinpoint, round, equal and non-reactive to light. Has bilateral corneal reflex. Left facial droop. Is breathing over the vent. No gag or cough reflex. Otherwise exam is limited. Motor: Could not assess. Has decrease tone over the left. With painful stimuli minimal reflex to left ankle. Sensation: Could not assess. Plantars are mute bilaterally. WORK-UP: * velasco virus PCR is detected on 03/24 * Lipid panel is triglyceride of 242, cholesterol 133, LDL of 57 and HDL 27. * TSH is 0.072. * Hemoglobin A1c 7.9. * lipid panel is triglyceride is 242, cholesterol is 133, LDLs 57 and HDL of the 27 * CT of the head is reported as cerebral atrophy. No acute intracranial abnormality. Previous surgery. * While CT angiography of the head and neck was reported as there is 0.5 cm segment of significant stenosis of the proximal right MCA cerebral artery. No significant flow seen in the A1 segment of the right anterior cerebral artery. Right anterior cerebral artery appears to fill through the anterior communicating artery. There is diminished contrast density in the intracranial right internal carotid artery suggestive of decreased flow. I personally reviewed the CT of the head and I did not appreciate any acute subacute ischemia and no interpretable hemorrhage. There is motion artifact on the CT. The patient does have a craniotomy over the left frontal temporal region. Also I felt the right MCA is severely stenosis and there is possible faint flow. * Repeat CT of the head on 03/27 and supported as large right cerebral hemisphere acute infarct which is change compared to yesterday. Cerebral edema. No hemorrhage. Infarct in the right middle cerebral artery distribution are also involvement of the right posterior cerebral artery distribution. * 2-D cardiogram is reported as mild concentric left ventricular atrophy. Overall left ventricle systolic function is normal with ejection fraction of 55-60%. Normal left atrial size Y volume. - Labs CBC & Chem 7: 03/29/21 04:15 03/29/21 11:53 Labs: Abnormal Lab Results - Last 24 Hours (Table) 03/28/21 03/28/21 03/29/21 Range/Units 16:19 19:47 02:48 Plt Count (150-450) k/uL Neutrophils # (1.3-7.7) k/uL Lymphocytes # (1.0-4.8) k/uL ABG pH (7.35-7.45) ABG pCO2 (35-45) mmHg ABG pO2 (83-108) mmHg ABG O2 Saturation (94-97) % Potassium (3.5-5.1) mmol/L Chloride (98-107) mmol/L BUN (9-20) mg/dL Glucose (74-99) mg/dL POC Glucose (mg/dL) 212 H 212 H 202 H (75-99) mg/dL 03/29/21 03/29/21 03/29/21 Range/Units 04:15 04:15 06:25 Plt Count 143 L (150-450) k/uL Neutrophils # 9.4 H (1.3-7.7) k/uL Lymphocytes # 0.3 L (1.0-4.8) k/uL ABG pH 7.31 L (7.35-7.45) ABG pCO2 52 H (35-45) mmHg ABG pO2 130 H (83-108) mmHg ABG O2 Saturation 99.0 H (94-97) % Potassium 5.2 H (3.5-5.1) mmol/L Chloride 112 H (98-107) mmol/L BUN 35 H (9-20) mg/dL Glucose 263 H (74-99) mg/dL POC Glucose (mg/dL) (75-99) mg/dL 03/29/21 03/29/21 03/29/21 Range/Units 08:14 11:53 14:02 Plt Count (150-450) k/uL Neutrophils # (1.3-7.7) k/uL Lymphocytes # (1.0-4.8) k/uL ABG pH (7.35-7.45) ABG pCO2 (35-45) mmHg ABG pO2 (83-108) mmHg ABG O2 Saturation (94-97) % Potassium (3.5-5.1) mmol/L Chloride 113 H (98-107) mmol/L BUN 36 H (9-20) mg/dL Glucose 291 H (74-99) mg/dL POC Glucose (mg/dL) 257 H 276 H (75-99) mg/dL Microbiology - Last 24 Hours (Table) 03/24/21 03:58 Blood Culture - Preliminary Blood No Growth after 120 hours 03/24/21 03:43 Blood Culture - Preliminary Blood No Growth after 120 hours 03/27/21 22:30 Gram Stain - Preliminary Sputum Sputum Culture - Preliminary 03/26/21 07:36 Gram Stain - Final Sputum Sputum Culture - Final Assessment and Plan Assessment: Acute large right hemispheric ischemic stroke (NIH 28) post IV tpa on 03/26/2021. 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 We'll hold off on Plavix for now. Continue Lipitor daily at bedtime. * Will get repeat CT head for today: It's reported as significant evolution of the acute large right MCA infarct with local mass effect and midline shift. Hyperdense right MCA sign consistent with complete occlusion. It is reported that there is a 10 mm midline shift. * Because of the cytotoxic edema and midline shift we'll have patient repeat Mannitol dose. I also started the patient on 3% hypertonic saline 35cc/hr with target of 145-155. Q4 sodium checks and osmolality checks. * Continue neuro checks * Continue cardiac monitoring * PT, OT and MRI CT TECH are consulted * Please attempt to have holiday sedation to have a good neurological examination. * Will Defer the rest of the medical management to the the primary team and ICU team. * For DVT prophylaxis: Continue subq heparin 5000U every 12 hours. Condition is critical and prognosis is poor. I spoke with the patient's (Maeve) via phone and updated her. She stated that she would like to continue medical management for now. She does not want any surgical intervention. Kevlin Barfield MD Neuro-Hospitalist Time with Patient: Greater than 30
[2021-03-29] MEDS: SODIUM CHLORIDE 3%(HYPERTONIC) 500 ML IV SCH (16:18)
[2021-03-29] MEDS ORDERED: CISATRACURIUM 2 MG/ML 5 ML VIAL IV ONE ×2 (18:42→18:43)
[2021-03-29] MEDS: HYDROcodone/APAP 5-325MG 1 EACH TAB PO PRN (19:48)
[2021-03-29 20:26] LABS: Glucose,Whole Blood 314 mg/dL (75-99)
[2021-03-29] MEDS: ATORVASTATIN 80 MG TAB PO SCH (20:32)
[2021-03-29] MEDS ORDERED: INSULIN DETEMIR (LEVEMIR) 100 UNIT/ML SYR SQ SCH (21:00)
[2021-03-30] MEDS: ARTIFICIAL TEARS-HYPROMELLOSE DROPS 15 ML BTL BOTH EYES SCH ×7 (00:31→23:48)
[2021-03-30] MEDS: HEPARIN SODIUM,PORCINE/PF 5,000 UNIT/0.5 ML SYRINGE SQ SCH ×3 (00:36→23:48)
[2021-03-30] MEDS: INSULIN ASPART (NovoLOG) 100 UNIT/ML VIAL SQ SCH ×10 (02:27→23:57)
[2021-03-30 02:28] LABS: Glucose,Whole Blood 228 mg/dL (75-99)
[2021-03-30] MEDS: DEXAMETHASONE SOD PHOSPHATE 10 MG/ML 1 ML VIAL IVP SCH ×4 (02:28→20:04)
[2021-03-30 04:45] LABS: Basophils % (A) 0 %; Eosinophils % (A) 0 %; HCT 44.4 % (39.0-53.0); HGB 14.6 gm/dL (13.0-17.5); Lymphocytes # (A) 0.4 k/uL (1.0-4.8); Lymphocytes % (A) 2 %; MCH 30.6 pg (25.0-35.0); MCHC 32.9 g/dL (31.0-37.0); MCV 93.1 fL (80.0-100.0); Mean Platelet Volume 8.2; Monocytes # (A) 0.6 k/uL (0-1.0); Monocytes % (A) 4 %; Neutrophils # (A) 15.8 k/uL (1.3-7.7); Neutrophils % (A) 93 %; Platelet Count 191 k/uL (150-450); RBC 4.77 m/uL (4.30-5.90)
[2021-03-30 04:58] LABS: ALT 68 U/L (4-49); AST 40 U/L (17-59); African American GFR (CKD) >90 (>60 ml/min/1.73 sqM); Albumin 2.8 g/dL (3.5-5.0); Alkaline Phosphatase 45 U/L (38-126); Anion Gap 4 mmol/L; Blood Urea Nitrogen 38 mg/dL (9-20); Carbon Dioxide 27 mmol/L (22-30); Chloride 114 mmol/L (98-107); Glucose 350 mg/dL (74-99); LDH 1248 U/L (313-618); Magnesium 2.3 mg/dL (1.6-2.3); Non-African American GFR(CKD) 88 (>60 ml/min/1.73 sqM); Sodium 145 mmol/L (137-145); Total Bilirubin 0.4 mg/dL (0.2-1.3); Total Protein 6.1 g/dL (6.3-8.2)
[2021-03-30] MEDS: SODIUM CHLORIDE 3%(HYPERTONIC) 500 ML IV SCH ×3 (05:34→21:03)
[2021-03-30 05:59] LABS: ABG Base Excess 3.7 mmol/L; ABG HCO3 30 mmol/L (21-25); ABG Oxygen Saturation 94.6 % (94-97); ABG PCO2 55 mmHg (35-45); ABG PH 7.34 (7.35-7.45); ABG PO2 74 mmHg (83-108); ABG TCO2 31 mmol/L (19-24); Allen Test Performed? Yes
[2021-03-30] MEDS: PANTOPRAZOLE 40 MG TABLET PO SCH (06:44)
[2021-03-30 08:05] LABS: Glucose,Whole Blood 297 mg/dL (75-99)
[2021-03-30] MEDS: ZINC SULFATE 220 MG CAP PO SCH (09:30)
[2021-03-30] MEDS: ASCORBIC ACID 500 MG TAB PO SCH (09:30)
[2021-03-30] MEDS: CHOLECALCIFEROL 25 MCG (1000 IU) TABLET PO SCH (09:30)
[2021-03-30] MEDS: CISATRACURIUM 200 MG in SODIUM CHLORIDE 0.9% 180 ML IV SCH (11:30)
[2021-03-30] MEDS: ASPIRIN 325 MG TAB PO SCH (12:26)
--- NOTE | 2021-03-30 13:30 | P.PN ---
Subjective Progress Note Date: 03/30/21 Principal diagnosis: COVID-19 pneumonia 71-year-old white male patient with past medical history of diabetes mellitus type II who presented to the emergency department with the one week history of cough, headaches. His initial symptoms started as what felt like a chest cold, and became progressive. Patient follows with Dr. Malik. His cough is nonproductive. His had no nausea vomiting or diarrhea, no abdominal pain. She tested positive for COVID-19 in the emergency department, and his SpO2 upon presentation was 75% on room air. His chest x-ray showed patchy bilateral pneumonia. D-dimer was elevated at greater than 34.1, and CTA chest was completed showing no evidence of pulmonary embolism, and extensive patchy bilateral pneumonia with mediastinal and bronchial adenopathy and small right pleural effusion. She is currently on 8 L of oxygen his pulse ox is 88-90%, he is in sinus mechanism slightly tachycardic with a rate of 105 BPM, afebrile, he is awaiting a bed on medical surgical floor. He is awake and alert, oriented 3, dyspneic, but appears to be in no acute distress. Started on Decadron 6 mg daily, he is started on vitamins C, D, and zinc, and prophylactic dose Lovenox. On 03/25/2021 patient seen in follow-up on medical surgical floor, he is awake and alert, breathing comfortably, he is currently up to 10 L of oxygen pulse ox is 92%. No fever or chills. Mild cough, no chest discomfort. Chest x-ray today shows patchy infiltrates bilaterally, no significant change compared to last chest x-ray. Afebrile, overall patient states he feels better. His labs have been reviewed, white blood cell count is 11.7, hemoglobin is 15.4, d-dimer is down to 3.9, sodium is 137, potassium 4.5, BUN is 42, creatinine is 1.1, LDH is 643, CRP is 21.8. Troponin was negative at less than 0.012, BNP was 144. Pro-calcitonin level was elevated at 1.51 was placed on empiric antibiotic coverage with a combination of azithromycin and Rocephin The patient is seen today 03/26/2021 in follow-up on the regular medical floor. Currently sitting up in a chair at the bedside. Awake and alert in no acute distress. He is still requiring 8 L high flow nasal cannula to maintain O2 saturations at 91%. No worsening shortness of breath, cough or congestion. A bit better today compared to yesterday. He's been afebrile. Hemodynamically stable. Blood cultures reveal no growth. Sputum culture reveals no growth. White count 13.2. Hemoglobin 15.5. Sodium 134. Potassium 4.8. Creatinine 0.93. He remains on ceftriaxone and azithromycin. Continued on Decadron, Lovenox, vitamin supplements. The patient is seen today 03/27/2021 in follow-up in the intensive care unit. The patient developed left-sided weakness last evening and a code stroke was ca lled. CT angiogram revealed a 1.5 segment of significant stenosis of the proximal right middle cerebral artery. No flow seen at A1 segment of the right anterior cerebral artery. There is diminished contrast density in the intracranial right internal carotid artery suggestive of decreased flow. He was transferred to the ICU and TPA was given. The patient remains he remains awake and alert, oriented to self and time. He does have left-sided neglect. His left side is flaccid. He is requiring 15 L high flow nasal cannula plus a nonrebreather mask to maintain O2 saturations in the low 90s. Follow-up arterial blood gases revealed a PaO2 of 73, pCO2 of 31 and a pH of 7.48. He is 0.9 normal saline at 100 mL per hour. He remains on Decadron vitamin supplements. He is on antibiotics in the form of ceftriaxone and azithromycin. White count 13.0. Hemoglobin 14.2. Platelets 248. Lymphocytes 0.5. Sodium 137. Potassium 4.3. Chloride 108. Bicarb 20. Creatinine 0.94. Glucose 198. The patient is seen today 03/28/2021 in follow-up in the intensive care unit. His condition continued to deteriorate. He was intubated and placed on mechanical ventilator yesterday. Currently on assist control at a rate of 24, tidal volume 450, FiO2 70% and a PEEP of 5. Morning blood gases revealed a PaO2 of 92, pCO2 56, pH 7.25 and that was on 75% FiO2. He is currently sedated on propofol at 50 mcg/kg/m. Nimbex at 2 mcg/kg/m. He remains on Decadron, human supplements, heparin for DVT prophylaxis, bronchodilators. Chest x-ray reveals increasing bilateral multifocal and confluent opacities consistent with COVID-19 pneumonia. Echocardiogram revealed preserved left ventricular systolic function with ejection fraction 55-60%. Severe pulmonary hypertension. White count 13.6. Hemoglobin 14.6. Lymphocytes 0.7. D-dimer greater than 34. Sodium 141. Potassium 5.0. Creatinine 0.85. LDH 2025. C-reactive protein 23. Glucose 203. Follow-up computed tomography scan of the brain done yesterday reveals a large right cerebral hemisphere acute infarct which is a change compared to the previous. There is evidence of cerebral edema. No hemorrhage. Infarct in the right middle cerebral artery distribution and also involvement of the right posterior cerebral artery distribution. The patient seen today 03/30/2021 in follow-up in the intensive care unit. He remains intubated on mechanical ventilator. Current mode of assist control at a rate of 24, tidal volume 450, FiO2 50% and a PEEP of 5. White blood gases revealed a PaO2 of 74, pCO2 55, pH 7.34 that was on 70% FiO2. He remains on propofol 50 mcg/kg/m. Nimbex at 2 mcg/kg/m. 3% normal saline at 35 mL per hour. Vital AF at 42 ML's per hour which is goal. Follow-up computed tomography scan of the brain performed last evening revealed significant evolution of the acute large right MCA infarct with local mass effect and midline shift. Hyperdense right MCA sign consistent with complete occlusion. Blood cultures revealed no growth. Sputum cultures revealed no growth. White count 17.0. Hemoglobin 14.6. Lymphocytes 0.4. D-dimer 33.3. Sodium 147, potassium 5.0. Chloride 114. Bicarb 27. Creatinine 0.84. Glucose 350. AST 40. ALT 68. LDH 1248. He remains on vitamin supplements, Decadron, heparin f or DVT prophylaxis. Objective - Vital Signs Vital signs: Vital Signs Temp 99.3 F 03/30/21 12:00 Pulse 101 H 03/30/21 12:00 Resp 24 03/30/21 12:00 BP 138/88 03/30/21 12:00 Pulse Ox 92 L 03/30/21 12:00 Intake & Output 03/29/21 03/30/21 03/30/21 18:59 06:59 18:59 Intake Total 5410.364 7379.636 1076.939 Output Total 1375 1875 650 Balance 551.737 -504.364 426.939 Weight 96.9 kg 98.3 kg Intake: IV 938 456 228 0.9 800 A-Line 33 36 18 Sodium Chloride 3%( 105 420 210 Hypertonic) 500 ml @ 35 mls/hr IV .[id number] [facility] Rx #:[id number] Intake, IV Titration 410.737 230.636 376.939 Amount Cisatracurium 200 mg In 7.558 176.939 Sodium Chloride 0.9% 180 ml @ 1 MCG/KG/MIN 5.814 mls/hr IV .Q24H [facility] Rx#: [id number] Cisatracurium 200 mg In 55.062 Sodium Chloride 0.9% 180 ml @ 2 MCG/KG/MIN 11.592 mls/hr IV .[id number] [facility] Rx #:[id number] propofoL 1,000 mg In 355.675 223.078 200 Empty Bag 1 bag @ Titrate IV .Q0M [facility] Rx#: [id number] Tube Feeding 378 504 252 Other 200 180 220 Output: Urine 1375 1875 650 Other: Voiding Method Indwelling Catheter Indwelling Catheter Indwelling Catheter ABP, PAP, CO, CI - Last Documented Arterial Blood Pressure 110/61 - Exam GENERAL EXAM: Intubated, sedated, paralyzed 71-year-old male patient, on 50% FiO2 via the mechanical ventilator HEAD: Normocephalic/atraumatic. EYES: Normal reaction of pupils, equal size. Conjunctiva pink, sclera white. NOSE: Clear with pink turbinates. THROAT: No erythema or exudates. NECK: No masses, no JVD, no thyroid enlargement, no adenopathy. CHEST: No chest wall deformity. Symmetrical expansion. LUNGS: Equal air entry with diffuse crackles bilaterally CVS: Regular rate and rhythm, normal S1 and S2, no gallops, no murmurs, no rubs ABDOMEN: Soft, nontender. No hepatosplenomegaly, normal bowel sounds, no guarding or rigidity. EXTREMITIES: No clubbing, no edema, no cyanosis, 2+ pulses and upper and lower extremities. MUSCULOSKELETAL: Muscle strength and tone normal. SPINE: No scoliosis or deformity SKIN: No rashes CENTRAL NERVOUS SYSTEM: Unable to assess as patient is paralyzed and on the mechanical ventilator PSYCHIATRIC: Unable to assess as patient is paralyzed and on the mechanical ventilator - Labs CBC & Chem 7: 03/30/21 04:30 03/30/21 12:02 Labs: Abnormal Lab Results - Last 24 Hours (Table) 03/29/21 03/29/21 03/29/21 Range/Units 11:53 14:02 20:24 WBC (3.8-10.6) k/uL Neutrophils # (1.3-7.7) k/uL Lymphocytes # (1.0-4.8) k/uL D-Dimer (<0.60) mg/L FEU ABG pH (7.35-7.45) ABG pCO2 (35-45) mmHg ABG pO2 (83-108) mmHg ABG HCO3 (21-25) mmol/L ABG Total CO2 (19-24) mmol/L Sodium (137-145) mmol/L Chloride (98-107) mmol/L BUN (9-20) mg/dL Glucose (74-99) mg/dL POC Glucose (mg/dL) 276 H 314 H (75-99) mg/dL ALT (4-49) U/L Lactate Dehydrogenase (313-618) U/L Total Protein (6.3-8.2) g/dL Albumin (3.5-5.0) g/dL Procalcitonin 0.35 H (0.02-0.09) ng/mL 03/30/21 03/30/21 03/30/21 Range/Units 02:26 04:30 04:30 WBC 17.0 H (3.8-10.6) k/uL Neutrophils # 15.8 H (1.3-7.7) k/uL Lymphocytes # 0.4 L (1.0-4.8) k/uL D-Dimer 33.37 H (<0.60) mg/L FEU ABG pH (7.35-7.45) ABG pCO2 (35-45) mmHg ABG pO2 (83-108) mmHg ABG HCO3 (21-25) mmol/L ABG Total CO2 (19-24) mmol/L Sodium (137-145) mmol/L Chloride (98-107) mmol/L BUN (9-20) mg/dL Glucose (74-99) mg/dL POC Glucose (mg/dL) 228 H (75-99) mg/dL ALT (4-49) U/L Lactate Dehydrogenase (313-618) U/L Total Protein (6.3-8.2) g/dL Albumin (3.5-5.0) g/dL Procalcitonin (0.02-0.09) ng/mL 03/30/21 03/30/21 03/30/21 Range/Units 04:30 05:55 08:03 WBC (3.8-10.6) k/uL Neutrophils # (1.3-7.7) k/uL Lymphocytes # (1.0-4.8) k/uL D-Dimer (<0.60) mg/L FEU ABG pH 7.34 L (7.35-7.45) ABG pCO2 55 H (35-45) mmHg ABG pO2 74 L (83-108) mmHg ABG HCO3 30 H (21-25) mmol/L ABG Total CO2 31 H (19-24) mmol/L Sodium (137-145) mmol/L Chloride 114 H (98-107) mmol/L BUN 38 H (9-20) mg/dL Glucose 350 H (74-99) mg/dL POC Glucose (mg/dL) 297 H (75-99) mg/dL ALT 68 H (4-49) U/L Lactate Dehydrogenase 1248 H (313-618) U/L Total Protein 6.1 L (6.3-8.2) g/dL Albumin 2.8 L (3.5-5.0) g/dL Procalcitonin (0.02-0.09) ng/mL 03/30/21 03/30/21 Range/Units 08:19 12:02 WBC (3.8-10.6) k/uL Neutrophils # (1.3-7.7) k/uL Lymphocytes # (1.0-4.8) k/uL D-Dimer (<0.60) mg/L FEU ABG pH (7.35-7.45) ABG pCO2 (35-45) mmHg ABG pO2 (83-108) mmHg ABG HCO3 (21-25) mmol/L ABG Total CO2 (19-24) mmol/L Sodium 146 H 147 H (137-145) mmol/L Chloride (98-107) mmol/L BUN (9-20) mg/dL Glucose (74-99) mg/dL POC Glucose (mg/dL) (75-99) mg/dL ALT (4-49) U/L Lactate Dehydrogenase (313-618) U/L Total Protein (6.3-8.2) g/dL Albumin (3.5-5.0) g/dL Procalcitonin (0.02-0.09) ng/mL Microbiology - Last 24 Hours (Table) 03/27/21 22:30 Gram Stain - Final Sputum Sputum Culture - Final 03/24/21 03:58 Blood Culture - Final Blood No Growth after 144 hours 03/24/21 03:43 Blood Culture - Final Blood No Growth after 144 hours Assessment and Plan Assessment: 1 Acute hypoxic respiratory failure related to acute COVID-19 pneumonia, worsening pulmonary status and required intubation and mechanical ventilatory support on 03/27/2021. 2 Acute left-sided weakness and code stroke on 03/26/2021 status post TPA infusion. CT angiogram revealed a 1.5 cm segment of significant stenosis of the proximal right middle cerebral artery. He continues with left-sided weakness and left-sided neglect. Follow-up computed tomography scan of the brain done 11/24/2020 reveals a large right cerebral hemisphere acute infarct which is a change compared to the previous. There is evidence of cerebral edema. No hemorrhage. Infarct in the right middle cerebral artery distribution and also involvement of the right posterior cerebral artery distribution. Follow-up computed tomography scan on 03/30/2021 revealed a significant evolution of the acute right large MCA infarct with local mass effect and midline shift. Hyperdense right MCA sign consistent with complete occlusion. 3 Elevated d-dimer with no CTA evidence of pulmonary embolism, Dopplers negative 3 Acute kidney injury that improved 4 Mild lactic acidosis, patient was given IV fluid bolus in the emergency department, repeat lactic acid is pending 5 Diabetes mellitus type 2 6 Elevated pro-calcitonin with the possibility of bacterial infection and possibility of bacterial pneumonia Plan: The patient was seen and evaluated by Dr. Carolyne Tovar and labs reviewed FiO2 decreased to 50% Computed tomography scan of the brain reviewed Worsening of the large right MCA infarct with local mass effect and midline shift Patient's prognosis is extremely poor He is now a DO NOT RESUSCITATE's CODE STATUS Continue supportive care for now We will continue to follow Critical care time 36 minutes I, the cosigning physician, performed a history & physical examination of the patient. Lungs sounds bibasilar crackles. Maintaining good O2 saturations in th e 90s on 50% FiO2 and a PEEP of 5 via the mechanical ventilator. I discussed the assessment and plan of care with my nurse practitioner, Raegan Meyers. I attest to the above note as dictated by her.
[2021-03-30 13:44] LABS: Glucose,Whole Blood 329 mg/dL (75-99)
--- NOTE | 2021-03-30 14:09 | P.PN ---
Subjective Progress Note Date: 03/30/21 The patient nurse patient was restarted on his Nimbex since has respiratory distress yesterday. He also continues to be on IV propofol. Otherwise his condition has been about the same. He continues to be on 3% hypertonic saline. Objective - Vital Signs Vital signs: Vital Signs Temp 99 F 03/30/21 08:00 Pulse 110 H 03/30/21 11:00 Resp 24 03/30/21 11:00 BP 152/92 03/30/21 11:00 Pulse Ox 92 L 03/30/21 11:00 Intake & Output 03/29/21 03/30/21 03/30/21 18:59 06:59 18:59 Intake Total 0641.277 7740.636 660 Output Total 1375 1875 525 Balance 551.737 -504.364 135 Weight 96.9 kg 98.3 kg Intake: IV 938 456 190 0.9 800 A-Line 33 36 15 Sodium Chloride 3%( 105 420 175 Hypertonic) 500 ml @ 35 mls/hr IV .[id number] [facility] Rx #:[id number] Intake, IV Titration 410.737 230.636 100 Amount Cisatracurium 200 mg In 7.558 Sodium Chloride 0.9% 180 ml @ 1 MCG/KG/MIN 5.814 mls/hr IV .Q24H [facility] Rx#: [id number] Cisatracurium 200 mg In 55.062 Sodium Chloride 0.9% 180 ml @ 2 MCG/KG/MIN 11.592 mls/hr IV .[id number] [facility] Rx #:[id number] propofoL 1,000 mg In 355.675 223.078 100 Empty Bag 1 bag @ Titrate IV .Q0M [facility] Rx#: [id number] Tube Feeding 378 504 210 Other 200 180 160 Output: Urine 1375 1875 525 Other: Voiding Method Indwelling Catheter Indwelling Catheter Indwelling Catheter ABP, PAP, CO, CI - Last Documented Arterial Blood Pressure 152/82 - Exam GENERAL: The patient is lying, and does not seem in acute distress. He is on IV Propofol. Nimbex is held for about 2 1/2 to 3 hours prior to physical exam. LUNG: Is intubated and on ventilator. NEUROLOGICAL: Limited because patient in on IV propofol 50mcg/kg/min. Higher mental function: Could not assess. Cranial nerves: The pupils are pinpoint, round, equal and non-reactive to light. Has bilateral corneal reflex. Left facial droop. Is breathing over the vent. No gag or cough reflex. Otherwise exam is limited. Motor: Could not assess. Has decrease tone over the left. With painful stimul i minimal reflex to left ankle. Sensation: Could not assess. Plantars are mute bilaterally. WORK-UP: * velasco virus PCR is detected on 03/24 * Lipid panel is triglyceride of 242, cholesterol 133, LDL of 57 and HDL 27. * TSH is 0.072. * Hemoglobin A1c 7.9. * lipid panel is triglyceride is 242, cholesterol is 133, LDLs 57 and HDL of the 27 * Most current sodium is 147. * CT of the head is reported as cerebral atrophy. No acute intracranial abnormality. Previous surgery. * While CT angiography of the head and neck was reported as there is 0.5 cm segment of significant stenosis of the proximal right MCA cerebral artery. No significant flow seen in the A1 segment of the right anterior cerebral artery. Right anterior cerebral artery appears to fill through the anterior communicating artery. There is diminished contrast density in the intracranial right internal carotid artery suggestive of decreased flow. I personally reviewed the CT of the head and I did not appreciate any acute subacute ischemia and no interpretable hemorrhage. There is motion artifact on the CT. The patient does have a craniotomy over the left frontal temporal region. Also I felt the right MCA is severely stenosis and there is possible faint flow. * CT of the head on 03/27 and supported as large right cerebral hemisphere acute infarct which is change compared to yesterday. Cerebral edema. No he morrhage. Infarct in the right middle cerebral artery distribution are also involvement of the right posterior cerebral artery distribution. * CT head for on 03/28: It's reported as significant evolution of the acute large right MCA infarct with local mass effect and midline shift. Hyperdense right MCA sign consistent with complete occlusion. It is reported that there is a 10 mm midline shift. * 2-D cardiogram is reported as mild concentric left ventricular atrophy. Overall left ventricle systolic function is normal with ejection fraction of 55-60%. Normal left atrial size Y volume. - Labs CBC & Chem 7: 03/30/21 04:30 03/30/21 12:02 Labs: Abnormal Lab Results - Last 24 Hours (Table) 03/29/21 03/29/21 03/29/21 Range/Units 11:53 14:02 20:24 WBC (3.8-10.6) k/uL Neutrophils # (1.3-7.7) k/uL Lymphocytes # (1.0-4.8) k/uL D-Dimer (<0.60) mg/L FEU ABG pH (7.35-7.45) ABG pCO2 (35-45) mmHg ABG pO2 (83-108) mmHg ABG HCO3 (21-25) mmol/L ABG Total CO2 (19-24) mmol/L Sodium (137-145) mmol/L Chloride (98-107) mmol/L BUN (9-20) mg/dL Glucose (74-99) mg/dL POC Glucose (mg/dL) 276 H 314 H (75-99) mg/dL ALT (4-49) U/L Lactate Dehydrogenase (313-618) U/L Total Protein (6.3-8.2) g/dL Albumin (3.5-5.0) g/dL Procalcitonin 0.35 H (0.02-0.09) ng/mL 03/30/21 03/30/21 03/30/21 Range/Units 02:26 04:30 04:30 WBC 17.0 H (3.8-10.6) k/uL Neutrophils # 15.8 H (1.3-7.7) k/uL Lymphocytes # 0.4 L (1.0-4.8) k/uL D-Dimer 33.37 H (<0.60) mg/L FEU ABG pH (7.35-7.45) ABG pCO2 (35-45) mmHg ABG pO2 (83-108) mmHg ABG HCO3 (21-25) mmol/L ABG Total CO2 (19-24) mmol/L Sodium (137-145) mmol/L Chloride (98-107) mmol/L BUN (9-20) mg/dL Glucose (74-99) mg/dL POC Glucose (mg/dL) 228 H (75-99) mg/dL ALT (4-49) U/L Lactate Dehydrogenase (313-618) U/L Total Protein (6.3-8.2) g/dL Albumin (3.5-5.0) g/dL Procalcitonin (0.02-0.09) ng/mL 03/30/21 03/30/21 03/30/21 Range/Units 04:30 05:55 08:03 WBC (3.8-10.6) k/uL Neutrophils # (1.3-7.7) k/uL Lymphocytes # (1.0-4.8) k/uL D-Dimer (<0.60) mg/L FEU ABG pH 7.34 L (7.35-7.45) ABG pCO2 55 H (35-45) mmHg ABG pO2 74 L (83-108) mmHg ABG HCO3 30 H (21-25) mmol/L ABG Total CO2 31 H (19-24) mmol/L Sodium (137-145) mmol/L Chloride 114 H (98-107) mmol/L BUN 38 H (9-20) mg/dL Glucose 350 H (74-99) mg/dL POC Glucose (mg/dL) 297 H (75-99) mg/dL ALT 68 H (4-49) U/L Lactate Dehydrogenase 1248 H (313-618) U/L Total Protein 6.1 L (6.3-8.2) g/dL Albumin 2.8 L (3.5-5.0) g/dL Procalcitonin (0.02-0.09) ng/mL 03/30/21 03/30/21 Range/Units 08:19 12:02 WBC (3.8-10.6) k/uL Neutrophils # (1.3-7.7) k/uL Lymphocytes # (1.0-4.8) k/uL D-Dimer (<0.60) mg/L FEU ABG pH (7.35-7.45) ABG pCO2 (35-45) mmHg ABG pO2 (83-108) mmHg ABG HCO3 (21-25) mmol/L ABG Total CO2 (19-24) mmol/L Sodium 146 H 147 H (137-145) mmol/L Chloride (98-107) mmol/L BUN (9-20) mg/dL Glucose (74-99) mg/dL POC Glucose (mg/dL) (75-99) mg/dL ALT (4-49) U/L Lactate Dehydrogenase (313-618) U/L Total Protein (6.3-8.2) g/dL Albumin (3.5-5.0) g/dL Procalcitonin (0.02-0.09) ng/mL Microbiology - Last 24 Hours (Table) 03/27/21 22:30 Gram Stain - Final Sputum Sputum Culture - Final 03/24/21 03:58 Blood Culture - Final Blood No Growth after 144 hours 03/24/21 03:43 Blood Culture - Final Blood No Growth after 144 hours Assessment and Plan Assessment: * Acute large right hemispheric ischemic stroke (NIH 28) post IV tpa on 03/26/2021. 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 Received 2 doses of IV mannitol and is currently on 3% hypertonic saline * Encephalopathy due to multifactorial: Stroke, medication effect (Nimbex and IV propofol) and hypoxic encephalopathy * Intubated and on mechanical ventilation for airway protection * History of Craniotomy over the left hemisphere: Had fall and suffered bleeding in 1987 (according to ) * Acute hypoxic respiratory failure related to do acute COVID-19 ammonia * Acute kidney injury--resolved * Diabetes mellitus type 2 Plan: * Will change from ASA from suppository to ASA 325mg via OG tube. We'll hold off on Plavix for now. Continue Lipitor daily at bedtime. * Because of the cytotoxic edema and midline shift continue 3% hypertonic saline 35cc/hr with target of 145-155. Q4 sodium checks and osmolality checks. * Will get repeat CT head tomorrow. * Continue neuro checks * Continue cardiac monitoring * PT, OT and PEDIATRIC SURGEON are consulted * He does not quality for right craniotomy since outside 48 hour window period, not good surgical candidate and lastly his did not want any surgical i ntervention. * Please avoid Nimbex and attempt to avoid sedation if possible (if needed use Precedex for sedation and last resort IV propofol) for neurological exam. * Will Defer the rest of the medical management to the the primary team and ICU team. * For DVT prophylaxis: Continue subq heparin 5000U every 12 hours. Condition is critical and prognosis is poor. I spoke with the patient's (Maeve) and his son Kenyon via phone and updated them. They stated they would like to continue medical management for next 2-3 days then will assess situation. They did not want PEG or Trach and stated they do to change patient code to NO CODE. This was notified to patient's primary team. Kelvin Barfield MD Neuro-Hospitalist Time with Patient: Less than 30
--- NOTE | 2021-03-30 17:19 | P.PN ---
Subjective Progress Note Date: 03/30/21 Principal diagnosis: shortness of breath Patient is a 71-year-old male with a history of diabetes mellitus and hypertension who presented to the emergency department with complaints of fevers, headache, muscle aches and poor appetite. In the emergency department he underwent an extensive evaluation. On arrival he was found to be satting 75% on room air and had a heart rate of 120. Urinalysis is remarkable for lactic acid of 2.5, creatinine 1.38, and COVID-19 testing was positive. He underwent a CTA of the chest which showed no evidence of pulmonary embolism but did demonstrate extensive patchy bilateral pneumonia. He was admitted and was started on dexamethasone and IV fluids. He was seen by pulmonary critical care who recommended lower extremity venous Dopplers. These were completed without evidence of DVT. He did have a pro-calcitonin drawn which was elevated at 1.51. Therefore he was kept on Rocephin and Zithromax as bacterial coinfection could not be eliminated. He continued to require high flow nasal cannula. His d- dimer improved. On the afternoon of 03/26 he developed sudden onset left-sided flaccid paralysis. Code stroke was called. He underwent a head CT which showed no acute process and a CTA head and neck which showed narrowing of the right MCA. Interventional neurology was contacted who did not recommend TPA or intervention at that time. He continued to have worsening of his symptoms over the next 2 hours and they were again recontacted and recommended TPA. This was administered on 03/26. On 03/27 the patient continued to have difficulty with swallowing, left-sided facial droop, and left-sided paralysis. He had worsening respiratory status and subsequently required intubation on 03/27. He then required paralytic. Repeat head CT demonstrated cerebral edema without midline shift or significant mass effect. Repeat head CT on 03/29 showed local mass effect and midline shift with acute large right MCA CVA. Patient seen and examined at bedside. He is sedated and paralyzed on the vent. liabile BP with highs and lows long with frequent PVC. General:ill appearing, no distress, appears at stated age Derm: warm, dry Head: atraumatic, normocephalic, symmetric Eyes: Pupils pinpoint and nonreactive, no lip lesion, anicteric sclera Mouth: no lip lesion, mucus membranes dry Cardiovascular: S1S2 reg, no murmur, positive posterior tibial pulse bilateral, Lungs: Clear to auscultation bilaterally, no accessory muscle use, on vent Abdominal: soft, nontender to palpation, no guarding, no appreciable organo megaly Ext: no gross muscle atrophy, no edema, no contractures Neuro: aidee breathing over vent, no withdrawal to pain in all 4 extremities. Psych: sedated and intubated COVID-19 pneumonitis Acute hypoxic respiratory failure -Continue with dexamethasone -Pulmonary recommendations: Not a candidate for Remdesivir -Continue vitamin C, vitamin D, zinc -Unable to rule out bacterial component with pro-calcitonin of 1.5 and will continue with Zithromax and Rocephin D # 6. Sputum culture negative anticipated D/C in AM after 7 days Right MCA Acute ischemic CVA with cerebral edema -Decadron every 6 hours, s/p manitol - 3% saline, serial lytes with goal Na 145-155, follow osmol - s/p TPA -Aspirin -Lipitor -Neurology recommendations appreciated - poor over all prognosis Diabetes mellitus type II with hyperglycemia -Hold Glucophage -Sliding-scale insulin, fixed dose, Levemir -Follow blood sugars - A1C 7.9 Hypertension -Lisinopril on hold, BP currently stable -Follow blood pressures Dyslipidemia -Atorvastatin Severe Pulm HTN - outpatient follow-up ALLEGRA, resolved Lactic acidosis, resolved DVT prophylaxis: Lovenox Discussed with: Nursing, neurology Anticipated discharge: undetermined Anticipated discharge place: home A total of 37 minutes was spent on the care of this complex patient more than 50% of the time was spent in counseling and care coordination. Objective - Vital Signs Vital signs: Vital Signs Temp 99.2 F 03/30/21 16:00 Pulse 100 03/30/21 16:00 Resp 24 03/30/21 16:00 BP 133/82 03/30/21 16:00 Pulse Ox 91 L 03/30/21 16:00 Intake & Output 03/29/21 03/30/21 03/30/21 18:59 06:59 18:59 Intake Total 9686.451 5072.636 1556.939 Output Total 1375 1875 1250 Balance 551.737 -504.364 306.939 Weight 96.9 kg 98.3 kg Intake: IV 938 456 380 0.9 800 A-Line 33 36 30 Sodium Chloride 3%( 105 420 350 Hypertonic) 500 ml @ 35 mls/hr IV .[id number] [facility] Rx #:[id number] Intake, IV Titration 410.737 230.636 476.939 Amount Cisatracurium 200 mg In 7.558 176.939 Sodium Chloride 0.9% 180 ml @ 1 MCG/KG/MIN 5.814 mls/hr IV .Q24H [facility] Rx#: [id number] Cisatracurium 200 mg In 55.062 Sodium Chloride 0.9% 180 ml @ 2 MCG/KG/MIN 11.592 mls/hr IV .[id number] [facility] Rx #:[id number] propofoL 1,000 mg In 355.675 223.078 300 Empty Bag 1 bag @ Titrate IV .Q0M [facility] Rx#: [id number] Tube Feeding 378 504 420 Other 200 180 280 Output: Urine 1375 1875 1250 Other: Voiding Method Indwelling Catheter Indwelling Catheter Indwelling Catheter ABP, PAP, CO, CI - Last Documented Arterial Blood Pressure 159/75 - Labs CBC & Chem 7: 03/30/21 04:30 03/30/21 15:45 Labs: Abnormal Lab Results - Last 24 Hours (Table) 03/29/21 03/29/21 03/30/21 Range/Units 11:53 20:24 02:26 WBC (3.8-10.6) k/uL Neutrophils # (1.3-7.7) k/uL Lymphocytes # (1.0-4.8) k/uL D-Dimer (<0.60) mg/L FEU ABG pH (7.35-7.45) ABG pCO2 (35-45) mmHg ABG pO2 (83-108) mmHg ABG HCO3 (21-25) mmol/L ABG Total CO2 (19-24) mmol/L Sodium (137-145) mmol/L Chloride (98-107) mmol/L BUN (9-20) mg/dL Glucose (74-99) mg/dL POC Glucose (mg/dL) 314 H 228 H (75-99) mg/dL ALT (4-49) U/L Lactate Dehydrogenase (313-618) U/L Total Protein (6.3-8.2) g/dL Albumin (3.5-5.0) g/dL Procalcitonin 0.35 H (0.02-0.09) ng/mL 03/30/21 03/30/21 03/30/21 Range/Units 04:30 04:30 04:30 WBC 17.0 H (3.8-10.6) k/uL Neutrophils # 15.8 H (1.3-7.7) k/uL Lymphocytes # 0.4 L (1.0-4.8) k/uL D-Dimer 33.37 H (<0.60) mg/L FEU ABG pH (7.35-7.45) ABG pCO2 (35-45) mmHg ABG pO2 (83-108) mmHg ABG HCO3 (21-25) mmol/L ABG Total CO2 (19-24) mmol/L Sodium (137-145) mmol/L Chloride 114 H (98-107) mmol/L BUN 38 H (9-20) mg/dL Glucose 350 H (74-99) mg/dL POC Glucose (mg/dL) (75-99) mg/dL ALT 68 H (4-49) U/L Lactate Dehydrogenase 1248 H (313-618) U/L Total Protein 6.1 L (6.3-8.2) g/dL Albumin 2.8 L (3.5-5.0) g/dL Procalcitonin (0.02-0.09) ng/mL 03/30/21 03/30/21 03/30/21 Range/Units 05:55 08:03 08:19 WBC (3.8-10.6) k/uL Neutrophils # (1.3-7.7) k/uL Lymphocytes # (1.0-4.8) k/uL D-Dimer (<0.60) mg/L FEU ABG pH 7.34 L (7.35-7.45) ABG pCO2 55 H (35-45) mmHg ABG pO2 74 L (83-108) mmHg ABG HCO3 30 H (21-25) mmol/L ABG Total CO2 31 H (19-24) mmol/L Sodium 146 H (137-145) mmol/L Chloride (98-107) mmol/L BUN (9-20) mg/dL Glucose (74-99) mg/dL POC Glucose (mg/dL) 297 H (75-99) mg/dL ALT (4-49) U/L Lactate Dehydrogenase (313-618) U/L Total Protein (6.3-8.2) g/dL Albumin (3.5-5.0) g/dL Procalcitonin (0.02-0.09) ng/mL 03/30/21 03/30/21 03/30/21 Range/Units 12:02 13:42 15:45 WBC (3.8-10.6) k/uL Neutrophils # (1.3-7.7) k/uL Lymphocytes # (1.0-4.8) k/uL D-Dimer (<0.60) mg/L FEU ABG pH (7.35-7.45) ABG pCO2 (35-45) mmHg ABG pO2 (83-108) mmHg ABG HCO3 (21-25) mmol/L ABG Total CO2 (19-24) mmol/L Sodium 147 H 147 H (137-145) mmol/L Chloride (98-107) mmol/L BUN (9-20) mg/dL Glucose (74-99) mg/dL POC Glucose (mg/dL) 329 H (75-99) mg/dL ALT (4-49) U/L Lactate Dehydrogenase (313-618) U/L Total Protein (6.3-8.2) g/dL Albumin (3.5-5.0) g/dL Procalcitonin (0.02-0.09) ng/mL Microbiology - Last 24 Hours (Table) 03/27/21 22:30 Gram Stain - Final Sputum Sputum Culture - Final 03/24/21 03:58 Blood Culture - Final Blood No Growth after 144 hours 03/24/21 03:43 Blood Culture - Final Blood No Growth after 144 hours
[2021-03-30 19:52] LABS: Glucose,Whole Blood 307 mg/dL (75-99)
[2021-03-30] MEDS: ATORVASTATIN 80 MG TAB PO SCH (20:04)
[2021-03-30] MEDS ORDERED: INSULIN DETEMIR (LEVEMIR) 100 UNIT/ML SYR SQ SCH ×2 (21:00)
[2021-03-30 23:55] LABS: Glucose,Whole Blood 303 mg/dL (75-99)
[2021-03-31] MEDS: ARTIFICIAL TEARS-HYPROMELLOSE DROPS 15 ML BTL BOTH EYES SCH ×6 (03:42→23:31)
[2021-03-31] MEDS: DEXAMETHASONE SOD PHOSPHATE 10 MG/ML 1 ML VIAL IVP SCH ×4 (03:46→20:49)
[2021-03-31 04:35] LABS: Basophils % (A) 0 %; Eosinophils % (A) 0 %; HCT 43.5 % (39.0-53.0); HGB 14.6 gm/dL (13.0-17.5); Lymphocytes # (A) 0.6 k/uL (1.0-4.8); Lymphocytes % (A) 4 %; MCH 31.4 pg (25.0-35.0); MCHC 33.6 g/dL (31.0-37.0); MCV 93.5 fL (80.0-100.0); Mean Platelet Volume 8.7; Monocytes # (A) 0.7 k/uL (0-1.0); Monocytes % (A) 5 %; Neutrophils # (A) 12.2 k/uL (1.3-7.7); Neutrophils % (A) 89 %; Platelet Count 179 k/uL (150-450); RBC 4.66 m/uL (4.30-5.90); RDW 13.5 % (11.5-15.5); WBC 13.7 k/uL (3.8-10.6)
[2021-03-31 04:51] LABS: ALT 65 U/L (4-49); AST 32 U/L (17-59); African American GFR (CKD) >90 (>60 ml/min/1.73 sqM); Albumin 2.7 g/dL (3.5-5.0); Alkaline Phosphatase 39 U/L (38-126); Anion Gap 3 mmol/L; Blood Urea Nitrogen 38 mg/dL (9-20); Carbon Dioxide 30 mmol/L (22-30); Chloride 115 mmol/L (98-107); Glucose 316 mg/dL (74-99); LDH 1025 U/L (313-618); Non-African American GFR(CKD) 89 (>60 ml/min/1.73 sqM); Potassium 5.1 mmol/L (3.5-5.1); Sodium 148 mmol/L (137-145); Total Bilirubin 0.2 mg/dL (0.2-1.3)
[2021-03-31 06:07] LABS: Glucose,Whole Blood 266 mg/dL (75-99)
[2021-03-31] MEDS: INSULIN ASPART (NovoLOG) 100 UNIT/ML VIAL SQ SCH ×7 (06:14→23:35)
[2021-03-31] MEDS: PANTOPRAZOLE 40 MG TABLET PO SCH (06:15)
[2021-03-31 06:20] LABS: ABG Base Excess 8.6 mmol/L; ABG HCO3 34 mmol/L (21-25); ABG Oxygen Saturation 90.5 % (94-97); ABG PCO2 58 mmHg (35-45); ABG PH 7.37 (7.35-7.45); ABG PO2 60 mmHg (83-108); ABG TCO2 36 mmol/L (19-24); Allen Test Performed? Yes
--- NOTE | 2021-03-31 07:33 | XR ---
EXAMINATION TYPE: XR chest 1V portable DATE OF EXAM: 03/31/2021 HISTORY: Shortness of breath. COMPARISON: 03/29/2021 TECHNIQUE: Single view of the chest is submitted. FINDINGS: NG tube is coiled within the stomach. There are bilateral infiltrates noted with interval increase in the left lower lobe. The heart is stable. Hilar and mediastinal structures are within normal limits. Degenerative changes are seen of the dorsal spine. IMPRESSION: 1. There are bilateral infiltrates noted with interval increase in the left lower lobe.
--- NOTE | 2021-03-31 07:50 | P.PN ---
Subjective Progress Note Date: 03/31/21 71-year-old male patient, currently in the intensive care unit, intubated on a mechanical ventilator with Coumadin and he relates pneumonia and a complicated large CVA involving the right MCA distribution post TPA treatment. The patient's is known to be diabetic. The patient presented to us on 03/24/2021 with shortness of breath and hypoxic respiratory failure. The patient had a CT angios and the child better pneumonia without evidence of any pulmonary embolism. The patient was being managed for community related pneumonia that was diagnosed in a time of admission. Subsequently, on 03/27/2021, the patient developed acute CVA with left-sided weakness and a CT angios and I'm showing a 1.5 cm segment of stenosis involving the right MCA distribution. There was no flow in the A1 segment of the right anterior cerebral artery. The patient got transferred to the ICU. The patient was given TPA. The patient had some altered mentation, he had left-sided flaccid dialysis. Subsequently his oxid ation got progressively worse and his condition deteriorated and the patient had to be intubated and placed on a mechanical ventilator. Patient was intubated on 03/28/2021. At this point in time, the patient is intubated and sedated. The patient is also paralyzed. Her propofol is running at 50 mics respiratory per minute and the patient is also Nimbex at 2 mcg/kg per minute. The patient on a mechanical ventilator on assist control mode at the rate of 24 with a tidal volume of 450 and FiO2 of 50% with a PEEP of 5. Chest x-ray was noted. Blood gases was noted. Follow-up CAT scan of the head done showed evolution of a large right MCA infarct with edema and mass effect and midline shift. There was hyperdense right MCA sign consistent with complete occlusion. Based on that, the patient is still in the intensive care unit. Worsening of the right MCA infarct was noticed along with some mass effect. Neurology on the case. The patient is currently on hypertonic 3% saline solution. CODE STATUS is DNR/DNI. Patient currently is on 3% saline solution at the rate of 35 mL an hour. Patient is also on heparin subcu for DVT prophylaxis. The patient on Levemir insulin 25 units daily at bedtime in addition to 10 units every 6 hours plus a sliding scale coverage. Remains on Decadron 6mg IV every 6 hours and the patient is also on aspirin 325 minutes by mouth daily. A 2-D echocardiogram showed mild concentric LVH, LV systolic ejection fraction was within normal with an EF of around 55-60% normal left atrial rise and volume. The blood work from today shows a sodium level of 148 with a chloride level of 115, his blood sugar is at 266, LDH level is 1025, LFTs are normal, white cell count is at 13.7 with a hemoglobin of 14.6. The chest x-ray from today was repeated and it showed cardiomegaly, the film itself is a rotated. ET tube is seen at the level of the aortic knob. OG tube is in place. There are bilateral pulmonary infiltrates especially in the left upper lobe, right lower lobe and left lower lobe. A repeat CAT scan is in progress for today. Meanwhile, his blood gases from today is still pending. Objective - Vital Signs Vital signs: Vital Signs Temp 98.1 F 03/31/21 04:00 Pulse 112 H 03/31/21 07:00 Resp 24 03/31/21 07:00 BP 156/91 03/31/21 07:00 Pulse Ox 90 L 03/31/21 07:00 Intake & Output 03/30/21 03/31/21 03/31/21 18:59 06:59 18:59 Intake Total 6182.438 6834.928 80 Output Total 1675 1800 150 Balance 114.614 -392.072 -70 Weight 98.3 kg 93.9 kg Intake: IV 456 456 38 A-Line 36 36 3 Sodium Chloride 3%( 420 420 35 Hypertonic) 500 ml @ 35 mls/hr IV .[id number] [facility] Rx #:[id number] Intake, IV Titration 549.614 267.928 Amount Cisatracurium 200 mg In 176.939 Sodium Chloride 0.9% 180 ml @ 1 MCG/KG/MIN 5.814 mls/hr IV .Q24H [facility] Rx#: [id number] propofoL 1,000 mg In 372.675 267.928 Empty Bag 1 bag @ Titrate IV .Q0M [facility] Rx#: [id number] Tube Feeding 504 504 42 Other 280 180 Output: Urine 1675 1800 150 Other: Voiding Method Indwelling Catheter Indwelling Catheter ABP, PAP, CO, CI - Last Documented Arterial Blood Pressure 161/78 - Exam GENERAL EXAM: Intubated, sedated, paralyzed 71-year-old male patient, on 50% FiO2 via the mechanical ventilator HEAD: Normocephalic/atraumatic. EYES: Normal reaction of pupils, equal size. Conjunctiva pink, sclera white. NOSE: Clear with pink turbinates. THROAT: No erythema or exudates. NECK: No masses, no JVD, no thyroid enlargement, no adenopathy. CHEST: No chest wall deformity. Symmetrical expansion. LUNGS: Equal air entry with diffuse crackles bilaterally CVS: Regular rate and rhythm, normal S1 and S2, no gallops, no murmurs, no rubs ABDOMEN: Soft, nontender. No hepatosplenomegaly, normal bowel sounds, no guarding or rigidity. EXTREMITIES: No clubbing, no edema, no cyanosis, 2+ pulses and upper and lower extremities. MUSCULOSKELETAL: Muscle strength and tone normal. SPINE: No scoliosis or deformity SKIN: No rashes CENTRAL NERVOUS SYSTEM: Unable to assess as patient is paralyzed and on the mechanical ventilator PSYCHIATRIC: Unable to assess as patient is paralyzed and on the mechanical ventilator - Labs CBC & Chem 7: 03/31/21 04:00 03/31/21 04:00 Labs: Abnormal Lab Results - Last 24 Hours (Table) 03/30/21 03/30/21 03/30/21 Range/Units 08:03 08:19 12:02 WBC (3.8-10.6) k/uL Neutrophils # (1.3-7.7) k/uL Lymphocytes # (1.0-4.8) k/uL Sodium 146 H 147 H (137-145) mmol/L Chloride (98-107) mmol/L BUN (9-20) mg/dL Glucose (74-99) mg/dL POC Glucose (mg/dL) 297 H (75-99) mg/dL ALT (4-49) U/L Lactate Dehydrogenase (313-618) U/L Total Protein (6.3-8.2) g/dL Albumin (3.5-5.0) g/dL 03/30/21 03/30/21 03/30/21 Range/Units 13:42 15:45 19:50 WBC (3.8-10.6) k/uL Neutrophils # (1.3-7.7) k/uL Lymphocytes # (1.0-4.8) k/uL Sodium 147 H (137-145) mmol/L Chloride (98-107) mmol/L BUN (9-20) mg/dL Glucose (74-99) mg/dL POC Glucose (mg/dL) 329 H 307 H (75-99) mg/dL ALT (4-49) U/L Lactate Dehydrogenase (313-618) U/L Total Protein (6.3-8.2) g/dL Albumin (3.5-5.0) g/dL 03/30/21 03/30/21 03/30/21 Range/Units 19:50 23:53 23:58 WBC (3.8-10.6) k/uL Neutrophils # (1.3-7.7) k/uL Lymphocytes # (1.0-4.8) k/uL Sodium 147 H 148 H (137-145) mmol/L Chloride (98-107) mmol/L BUN (9-20) mg/dL Glucose (74-99) mg/dL POC Glucose (mg/dL) 303 H (75-99) mg/dL ALT (4-49) U/L Lactate Dehydrogenase (313-618) U/L Total Protein (6.3-8.2) g/dL Albumin (3.5-5.0) g/dL 03/31/21 03/31/21 03/31/21 Range/Units 04:00 04:00 06:05 WBC 13.7 H (3.8-10.6) k/uL Neutrophils # 12.2 H (1.3-7.7) k/uL Lymphocytes # 0.6 L (1.0-4.8) k/uL Sodium 148 H (137-145) mmol/L Chloride 115 H (98-107) mmol/L BUN 38 H (9-20) mg/dL Glucose 316 H (74-99) mg/dL POC Glucose (mg/dL) 266 H (75-99) mg/dL ALT 65 H (4-49) U/L Lactate Dehydrogenase 1025 H (313-618) U/L Total Protein 6.0 L (6.3-8.2) g/dL Albumin 2.7 L (3.5-5.0) g/dL Microbiology - Last 24 Hours (Table) 03/27/21 22:30 Gram Stain - Final Sputum Sputum Culture - Final 03/24/21 03:58 Blood Culture - Final Blood No Growth after 144 hours 03/24/21 03:43 Blood Culture - Final Blood No Growth after 144 hours Assessment and Plan Plan: 1 Acute hypoxic respiratory failure related to acute COVID-19 pneumonia, worsening pulmonary status and required intubation and mechanical ventilatory support on 03/27/2021. The patient remains on Decadron for now. Remains intubated on a mechanical ventilator. Chest x-ray was noted. Blood gases was noted. 2 Acute left-sided weakness and code stroke on 03/26/2021 status post TPA infusion. CT angiogram revealed a 1.5 cm segment of significant stenosis of the proximal right middle cerebral artery. He continues with left-sided weakness and left-sided neglect. Follow-up computed tomography scan of the brain done 11/24/2020 reveals a large right cerebral hemisphere acute infarct which is a change compared to the previous. There is evidence of cerebral edema. No hemorrhage. Infarct in the right middle cerebral artery distribution and also involvement of the right posterior cerebral artery distribution. Follow-up computed tomography scan on 03/30/2021 revealed a significant evolution of the acute right large MCA infarct with local mass effect and midline shift. Hyperdense right MCA sign consistent with complete occlusion. The patient is currently on high dose Decadron. The patient is also on hypertonic saline solution 3% running at 35 mL's an hour. The patient is also on aspirin 325 mg by mouth daily and the patient is also on heparin subcu for DVT prophylaxis. The patient is also on high-dose statins 3 Elevated d-dimer with no CTA evidence of pulmonary embolism, Dopplers negative 3 Acute kidney injury that improved 4 mild hypernatremia, currently on 3% hypertonic saline solution 5 Diabetes mellitus type 2, with a component of steroid-induced hyperglycemia the patient is currently on high dose Decadron, currently on Levemir 25 units along with NovoLog 10 units every 6 hours plus a sliding scale coverage 6 Elevated pro-calcitonin with the possibility of bacterial infection and possibility of bacterial pneumonia Plan: Discontinue the Nimbex immediately to reevaluate his neuro status and keep the patient on propofol if needed. Noted the patient will also have a follow-up CAT scan of the brain today to assess progression of the stroke and possible mass effect/midline shift/herniation. Neurology is on the case. ABGs are still pending from today and this will be reviewed. Keep the hypertonic saline and monitor sodium level Computed tomography scan of the brain is pending from today Worsening of the large right MCA infarct with local mass effect and midline shift Patient's prognosis is extremely poor He is now a DO NOT RESUSCITATE's CODE STATUS Continue supportive care for now The patient remains on high dose Decadron. Blood sugars are not adequately c ontrolled at this point in time. I'm suggesting increasing the Levemir insulin up to 30 units in addition to increasing the NovoLog coverage up to working units every 6 hours plus dysplastic coverage. No other ventilator changes for today Chest x-ray was reviewed and is consistent with COVID 19 related pneumonia with bilateral diffuse pulmonary infiltrates We will continue to follow, extremely poor prognosis based on the above- mentioned comorbidities. We'll be awaiting the follow-up CAT scan of the brain and make further recommendations to the patient's family. CODE STATUS is currently DO NOT RESUSCITATE. There is a critically care evaluation that was done and more than 30 minutes. Time with Patient: Greater than 30
[2021-03-31] MEDS: ASPIRIN 325 MG TAB PO SCH (09:11)
[2021-03-31] MEDS: ASCORBIC ACID 500 MG TAB PO SCH (09:11)
[2021-03-31] MEDS: CHOLECALCIFEROL 25 MCG (1000 IU) TABLET PO SCH (09:11)
[2021-03-31] MEDS: ZINC SULFATE 220 MG CAP PO SCH (09:11)
[2021-03-31 09:43] VITALS: BMI 28.8
--- NOTE | 2021-03-31 10:05 | XR ---
EXAMINATION TYPE: XR chest 1V portable DATE OF EXAM: 03/31/2021 COMPARISON: NONE HISTORY: SOB, Follow Up FINDINGS: Indwelling tubes and catheters are unchanged. Patchy infiltrates throughout the left lung and right lung base persist without significant change. Stable appearance of the cardio-mediastinal structures at this time. Pleural effusion unchanged. IMPRESSION: 1. Stable portable chest. Clinical correlation and follow up until resolution is recommended.
[2021-03-31 11:37] LABS: Glucose,Whole Blood 280 mg/dL (75-99)
[2021-03-31 12:50] LABS: ABG Base Excess 10.4 mmol/L; ABG HCO3 33 mmol/L (21-25); ABG Oxygen Saturation 83.1 % (94-97); ABG PCO2 41 mmHg (35-45); ABG PH 7.52 (7.35-7.45); ABG TCO2 35 mmol/L (19-24); Allen Test Performed? Yes
[2021-03-31 12:55] LABS: ABG PO2 43 mmHg (83-108)
--- NOTE | 2021-03-31 12:56 | P.PN ---
Subjective Progress Note Date: 03/31/21 Principal diagnosis: shortness of breath Patient is a 71-year-old male with a history of diabetes mellitus and hypertension who presented to the emergency department with complaints of fevers, headache, muscle aches and poor appetite. In the emergency department he underwent an extensive evaluation. On arrival he was found to be satting 75% on room air and had a heart rate of 120. Urinalysis is remarkable for lactic acid of 2.5, creatinine 1.38, and COVID-19 testing was positive. He underwent a CTA of the chest which showed no evidence of pulmonary embolism but did demonstrate extensive patchy bilateral pneumonia. He was admitted and was started on dexamethasone and IV fluids. He was seen by pulmonary critical care who recommended lower extremity venous Dopplers. These were completed without evidence of DVT. He did have a pro-calcitonin drawn which was elevated at 1.51. Therefore he was kept on Rocephin and Zithromax as bacterial coinfection could not be eliminated. He continued to require high flow nasal cannula. His d- dimer improved. On the afternoon of 03/26 he developed sudden onset left-sided flaccid paralysis. Code stroke was called. He underwent a head CT which showed no acute process and a CTA head and neck which showed narrowing of the right MCA. Interventional neurology was contacted who did not recommend TPA or intervention at that time. He continued to have worsening of his symptoms over the next 2 hours and they were again recontacted and recommended TPA. This was administered on 03/26. On 03/27 the patient continued to have difficulty with swallowing, left-sided facial droop, and left-sided paralysis. He had worsening respiratory status and subsequently required intubation on 03/27. He then required paralytic. Repeat head CT demonstrated cerebral edema without midline shift or significant mass effect. Repeat head CT on 03/29 showed local mass effect and midline shift with acute large right MCA CVA. Patient seen and examined at bedside. He is sedated and paralyzed on the vent. labile BP with highs and lows long with frequent PVC. General:ill appearing, no distress, appears at stated age Derm: warm, dry Head: atraumatic, normocephalic, symmetric Eyes: Pupils pinpoint and nonreactive, no lip lesion, anicteric sclera Mouth: no lip lesion, mucus membranes dry Cardiovascular: S1S2 reg, no murmur, positive posterior tibial pulse bilateral, Lungs: Clear to auscultation bilaterally, no accessory muscle use, on vent Abdominal: soft, nontender to palpation, no guarding, no appreciable organom egaly Ext: no gross muscle atrophy, no edema, no contractures Neuro: aidee breathing over vent, no withdrawal to pain in all 4 extremities. Psych: sedated and intubated COVID-19 pneumonitis Acute hypoxic respiratory failure -Continue with dexamethasone -Pulmonary recommendations: Not a candidate for Remdesivir -Continue vitamin C, vitamin D, zinc -completed rocephin and zithromax Right MCA Acute ischemic CVA with cerebral edema - await repeat head CT -Decadron every 6 hours, s/p manitol - 3% saline, serial lytes with goal Na 145-155, follow osmol - s/p TPA -Aspirin -Lipitor -Neurology recommendations appreciated - poor over all prognosis Diabetes mellitus type II with hyperglycemia -Hold Glucophage -Sliding-scale insulin, fixed dose, Levimir to BID -Follow blood sugars - A1C 7.9 Hypertension -Lisinopril on hold, BP currently stable -Follow blood pressures Dyslipidemia -Atorvastatin Severe Pulm HTN - outpatient follow-up ALLEGRA, resolved Lactic acidosis, resolved DVT prophylaxis: Lovenox Discussed with: Nursing, neurology Anticipated discharge: undetermined Anticipated discharge place: home A total of 37 minutes was spent on the care of this complex patient more than 5 0% of the time was spent in counseling and care coordination. Objective - Vital Signs Vital signs: Vital Signs Temp 98.1 F 03/31/21 04:00 Pulse 112 H 03/31/21 07:00 Resp 24 03/31/21 07:00 BP 156/91 03/31/21 07:00 Pulse Ox 90 L 03/31/21 07:00 Intake & Output 03/30/21 03/31/21 03/31/21 18:59 06:59 18:59 Intake Total 8634.460 9019.928 80 Output Total 1675 1800 150 Balance 114.614 -392.072 -70 Weight 98.3 kg 93.9 kg 93.9 kg Intake: IV 456 456 38 A-Line 36 36 3 Sodium Chloride 3%( 420 420 35 Hypertonic) 500 ml @ 35 mls/hr IV .[id number] REPLACED BY [facility] Rx #:[id number] Intake, IV Titration 549.614 267.928 Amount Cisatracurium 200 mg In 176.939 Sodium Chloride 0.9% 180 ml @ 1 MCG/KG/MIN 5.814 mls/hr IV .Q24H [facility] Rx#: [id number] propofoL 1,000 mg In 372.675 267.928 Empty Bag 1 bag @ Titrate IV .Q0M [facility] Rx#: [id number] Tube Feeding 504 504 42 Other 280 180 Output: Urine 1675 1800 150 Other: Voiding Method Indwelling Catheter Indwelling Catheter ABP, PAP, CO, CI - Last Documented Arterial Blood Pressure 161/78 - Labs CBC & Chem 7: 03/31/21 04:00 03/31/21 04:00 Labs: Abnormal Lab Results - Last 24 Hours (Table) 03/30/21 03/30/21 03/30/21 Range/Units 13:42 15:45 19:50 WBC (3.8-10.6) k/uL Neutrophils # (1.3-7.7) k/uL Lymphocytes # (1.0-4.8) k/uL Sodium 147 H (137-145) mmol/L Chloride (98-107) mmol/L BUN (9-20) mg/dL Glucose (74-99) mg/dL POC Glucose (mg/dL) 329 H 307 H (75-99) mg/dL ALT (4-49) U/L Lactate Dehydrogenase (313-618) U/L Total Protein (6.3-8.2) g/dL Albumin (3.5-5.0) g/dL 03/30/21 03/30/21 03/30/21 Range/Units 19:50 23:53 23:58 WBC (3.8-10.6) k/uL Neutrophils # (1.3-7.7) k/uL Lymphocytes # (1.0-4.8) k/uL Sodium 147 H 148 H (137-145) mmol/L Chloride (98-107) mmol/L BUN (9-20) mg/dL Glucose (74-99) mg/dL POC Glucose (mg/dL) 303 H (75-99) mg/dL ALT (4-49) U/L Lactate Dehydrogenase (313-618) U/L Total Protein (6.3-8.2) g/dL Albumin (3.5-5.0) g/dL 03/31/21 03/31/21 03/31/21 Range/Units 04:00 04:00 06:05 WBC 13.7 H (3.8-10.6) k/uL Neutrophils # 12.2 H (1.3-7.7) k/uL Lymphocytes # 0.6 L (1.0-4.8) k/uL Sodium 148 H (137-145) mmol/L Chloride 115 H (98-107) mmol/L BUN 38 H (9-20) mg/dL Glucose 316 H (74-99) mg/dL POC Glucose (mg/dL) 266 H (75-99) mg/dL ALT 65 H (4-49) U/L Lactate Dehydrogenase 1025 H (313-618) U/L Total Protein 6.0 L (6.3-8.2) g/dL Albumin 2.7 L (3.5-5.0) g/dL 03/31/21 Range/Units 11:35 WBC (3.8-10.6) k/uL Neutrophils # (1.3-7.7) k/uL Lymphocytes # (1.0-4.8) k/uL Sodium (137-145) mmol/L Chloride (98-107) mmol/L BUN (9-20) mg/dL Glucose (74-99) mg/dL POC Glucose (mg/dL) 280 H (75-99) mg/dL ALT (4-49) U/L Lactate Dehydrogenase (313-618) U/L Total Protein (6.3-8.2) g/dL Albumin (3.5-5.0) g/dL Microbiology - Last 24 Hours (Table) 03/27/21 22:30 Gram Stain - Final Sputum Sputum Culture - Final
[2021-03-31] MEDS: HEPARIN SODIUM,PORCINE/PF 5,000 UNIT/0.5 ML SYRINGE SQ SCH ×2 (13:26→22:06)
[2021-03-31] MEDS: INSULIN DETEMIR (LEVEMIR) 100 UNIT/ML SYR SQ SCH (13:26)
[2021-03-31] MEDS: SODIUM CHLORIDE 3%(HYPERTONIC) 500 ML IV SCH (14:22)
--- NOTE | 2021-03-31 14:29 | XR ---
EXAMINATION TYPE: XR chest 1V portable DATE OF EXAM: 03/31/2021 COMPARISON: 03/31/2021 HISTORY: SOB, Follow Up FINDINGS: Indwelling tubes and catheters are unchanged. No change in bibasilar opacities. Left lower lobe infiltrate persists. Small effusion difficult to exclude. IMPRESSION: 1. Stable portable chest. Clinical correlation and follow up until resolution is recommended.
--- NOTE | 2021-03-31 17:27 | P.PN ---
Subjective Progress Note Date: 03/31/21 Patient was initially seen by Dr. Kelvin Barfield. Please refer to his note for details. Patient is off Nimbex. Patient's Peep has been increased to 15. Patient was on propofol, which was discontinued for 3.5 hours from 9 AM to 12:45 PM but then patient started bucking the ventilator. The propofol was resumed at 50 mcg/kg/m. Patient's condition does not appear to have improved. He continues to be on 3% hypertonic saline. Objective - Vital Signs Vital signs: Vital Signs Temp 98.1 F 03/31/21 04:00 Pulse 112 H 03/31/21 07:00 Resp 24 03/31/21 07:00 BP 156/91 03/31/21 07:00 Pulse Ox 90 L 03/31/21 07:00 Intake & Output 03/30/21 03/31/21 03/31/21 18:59 06:59 18:59 Intake Total 3908.470 5091.928 80 Output Total 1675 1800 150 Balance 114.614 -392.072 -70 Weight 98.3 kg 93.9 kg 93.9 kg Intake: IV 456 456 38 A-Line 36 36 3 Sodium Chloride 3%( 420 420 35 Hypertonic) 500 ml @ 35 mls/hr IV .[id number] [facility] Rx #:[id number] Intake, IV Titration 549.614 267.928 Amount Cisatracurium 200 mg In 176.939 Sodium Chloride 0.9% 180 ml @ 1 MCG/KG/MIN 5.814 mls/hr IV .Q24H [facility] Rx#: [id number] propofoL 1,000 mg In 372.675 267.928 Empty Bag 1 bag @ Titrate IV .Q0M [facility] Rx#: [id number] Tube Feeding 504 504 42 Other 280 180 Output: Urine 1675 1800 150 Other: Voiding Method Indwelling Catheter Indwelling Catheter ABP, PAP, CO, CI - Last Documented Arterial Blood Pressure 161/78 - Exam Patient is sedated with propofol 50 mcg/kg/m. Patient's head is deviated to the left, but the gaze is midline. Patient pupils are small, not clearly reacting. Oculocephalics and corneals are absent. Per nurse report, when sedation was discontinued, he did have corneal reflexes. Patient was breathing over the ventilator and had gag and cough. Motor could not be assessed. Decreased tone particularly on the left. Plantars are mute. - Labs CBC & Chem 7: 04/01/21 04:00 04/01/21 13:15 Labs: Abnormal Lab Results - Last 24 Hours (Table) 03/30/21 03/30/21 03/30/21 Range/Units 19:50 19:50 23:53 WBC (3.8-10.6) k/uL Neutrophils # (1.3-7.7) k/uL Lymphocytes # (1.0-4.8) k/uL ABG pH (7.35-7.45) ABG pO2 (83-108) mmHg ABG HCO3 (21-25) mmol/L ABG Total CO2 (19-24) mmol/L ABG O2 Saturation (94-97) % Sodium 147 H (137-145) mmol/L Chloride (98-107) mmol/L BUN (9-20) mg/dL Glucose (74-99) mg/dL POC Glucose (mg/dL) 307 H 303 H (75-99) mg/dL ALT (4-49) U/L Lactate Dehydrogenase (313-618) U/L Total Protein (6.3-8.2) g/dL Albumin (3.5-5.0) g/dL 03/30/21 03/31/21 03/31/21 Range/Units 23:58 04:00 04:00 WBC 13.7 H (3.8-10.6) k/uL Neutrophils # 12.2 H (1.3-7.7) k/uL Lymphocytes # 0.6 L (1.0-4.8) k/uL ABG pH (7.35-7.45) ABG pO2 (83-108) mmHg ABG HCO3 (21-25) mmol/L ABG Total CO2 (19-24) mmol/L ABG O2 Saturation (94-97) % Sodium 148 H 148 H (137-145) mmol/L Chloride 115 H (98-107) mmol/L BUN 38 H (9-20) mg/dL Glucose 316 H (74-99) mg/dL POC Glucose (mg/dL) (75-99) mg/dL ALT 65 H (4-49) U/L Lactate Dehydrogenase 1025 H (313-618) U/L Total Protein 6.0 L (6.3-8.2) g/dL Albumin 2.7 L (3.5-5.0) g/dL 03/31/21 03/31/21 03/31/21 Range/Units 06:05 11:35 12:41 WBC (3.8-10.6) k/uL Neutrophils # (1.3-7.7) k/uL Lymphocytes # (1.0-4.8) k/uL ABG pH 7.52 H (7.35-7.45) ABG pO2 43 L* (83-108) mmHg ABG HCO3 33 H (21-25) mmol/L ABG Total CO2 35 H (19-24) mmol/L ABG O2 Saturation 83.1 L (94-97) % Sodium (137-145) mmol/L Chloride (98-107) mmol/L BUN (9-20) mg/dL Glucose (74-99) mg/dL POC Glucose (mg/dL) 266 H 280 H (75-99) mg/dL ALT (4-49) U/L Lactate Dehydrogenase (313-618) U/L Total Protein (6.3-8.2) g/dL Albumin (3.5-5.0) g/dL Assessment and Plan Assessment: * Acute large right hemispheric ischemic stroke (NIH 28) post IV tpa on 03/26/2021. 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 Received 2 doses of IV mannitol and is currently on 3% hypertonic saline * Encephalopathy due to multifactorial: Stroke, medication effect (Nimbex and IV propofol) and hypoxic encephalopathy * Intubated and on mechanical ventilation for airway protection * History of Craniotomy over the left hemisphere: Had fall and suffered bleeding in 1987 (according to ) * Acute hypoxic respiratory failure related to do acute COVID-19 ammonia * Acute kidney injury--resolved * Diabetes mellitus type 2 Plan: * Continue ASA 325mg via OG tube. We'll hold off on Plavix for now. Continue Lipitor daily at bedtime. * Continue hypertonic saline. Sodium is 148. * Await repeat CT head. Per nurse, patient not stable for computed tomography scan as of now. * Continue neuro checks * Continue cardiac monitoring * PT, OT and BOX STAMPER are consulted * Will Defer the rest of the medical management to the the primary team and ICU team. * For DVT prophylaxis: Continue subq heparin 5000U every 12 hours. * Overall condition is critical and prognosis is poor. * Dr. Barfield has spoken with the patient's (Maeve) and his son Kenyon via phone and updated them. They stated they would like to continue medical management for next 2-3 days then will assess situation. Patient has been made DO NOT RESUSCITATE.
[2021-03-31 18:08] LABS: ABG Base Excess 9.2 mmol/L; ABG HCO3 33 mmol/L (21-25); ABG PCO2 46 mmHg (35-45); ABG PH 7.47 (7.35-7.45); ABG PO2 267 mmHg (83-108); ABG TCO2 34 mmol/L (19-24); Allen Test Performed? Yes
[2021-03-31] MEDS: CISATRACURIUM 200 MG in SODIUM CHLORIDE 0.9% 180 ML IV SCH (18:55)
[2021-03-31] MEDS: ATORVASTATIN 80 MG TAB PO SCH (20:48)
[2021-03-31 20:53] LABS: Glucose,Whole Blood 238 mg/dL (75-99)
[2021-03-31] MEDS ORDERED: INSULIN DETEMIR (LEVEMIR) 100 UNIT/ML SYR SQ SCH (21:00)
[2021-04-01 00:14] LABS: Glucose,Whole Blood 288 mg/dL (75-99)
[2021-04-01] MEDS: INSULIN ASPART (NovoLOG) 100 UNIT/ML VIAL SQ SCH ×5 (03:14→17:55)
[2021-04-01] MEDS: ARTIFICIAL TEARS-HYPROMELLOSE DROPS 15 ML BTL BOTH EYES SCH ×2 (03:15→11:25)
[2021-04-01] MEDS: DEXAMETHASONE SOD PHOSPHATE 10 MG/ML 1 ML VIAL IVP SCH ×3 (03:15→17:56)
[2021-04-01 03:33] LABS: Glucose,Whole Blood 310 mg/dL (75-99)
[2021-04-01 04:26] LABS: Basophils % (A) 0 %; Eosinophils % (A) 0 %; HCT 44.2 % (39.0-53.0); HGB 14.6 gm/dL (13.0-17.5); Lymphocytes # (A) 0.6 k/uL (1.0-4.8); Lymphocytes % (A) 3 %; MCH 30.9 pg (25.0-35.0); MCHC 33.2 g/dL (31.0-37.0); MCV 93.2 fL (80.0-100.0); Mean Platelet Volume 9.5; Monocytes # (A) 0.6 k/uL (0-1.0); Monocytes % (A) 3 %; Neutrophils # (A) 17.3 k/uL (1.3-7.7); Neutrophils % (A) 93 %; Platelet Count 157 k/uL (150-450); RBC 4.74 m/uL (4.30-5.90); WBC 18.6 k/uL (3.8-10.6)
[2021-04-01 05:16] LABS: Albumin 2.9 g/dL (3.5-5.0); Calcium 9.2 mg/dL (8.4-10.2); Potassium 5.3 mmol/L (3.5-5.1); Total Bilirubin 0.3 mg/dL (0.2-1.3); Total Protein 6.2 g/dL (6.3-8.2)
[2021-04-01 05:49] LABS: ABG Base Excess 7.1 mmol/L; ABG HCO3 32 mmol/L (21-25); ABG Oxygen Saturation 98.5 % (94-97); ABG PCO2 49 mmHg (35-45); ABG PH 7.42 (7.35-7.45); ABG PO2 111 mmHg (83-108); ABG TCO2 33 mmol/L (19-24); Allen Test Performed? Yes
[2021-04-01] MEDS: INSULIN DETEMIR (LEVEMIR) 100 UNIT/ML SYR SQ SCH (06:29)
[2021-04-01] MEDS: PANTOPRAZOLE 40 MG TABLET PO SCH (06:29)
--- NOTE | 2021-04-01 07:57 | XR ---
EXAMINATION TYPE: XR chest 1V portable DATE OF EXAM: 04/01/2021 COMPARISON: 03/31/2020 INDICATION: Congestion TECHNIQUE: Single frontal view of the chest is obtained. FINDINGS: The heart size is normal. The pulmonary vasculature is normal. Mild infiltrate is at the left base. Endotracheal tube tip is above the edelmira. Nasogastric tube transverses the thorax. This may be curle d back on itself with the tip in the distal esophagus considered upper abdomen film to include the kit ng bases to better evaluate nasogastric tube positioning. IMPRESSION: 1. Mild left lower lobe infiltrate. Correlate for atelectasis and pneumonia. Follow-up is recommended . 2. Nasogastric tube may be curled upon itself but is not well-visualized on this exam. Consider an ab domen film to include the lung bases to better evaluate nasogastric tube positioning.
[2021-04-01] MEDS: ALBUTEROL HFA INHALER INHALATION PRN (08:13)
--- NOTE | 2021-04-01 09:24 | P.PN ---
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 The patient's is known to be diabetic. The patient presented to us on 03/24/2021 with shortness of breath and hypoxic respiratory failure. The patient had a CT angios and the child better pneumonia without evidence of any pulmonary embolism. The patient was being managed for community related pneumonia that was diagnosed in a time of admission. Subsequently, on 03/27/2021, the patient developed acute CVA with left-sided weakness and a CT angios and I'm showing a 1.5 cm segment of stenosis involving the right MCA distribution. There was no flow in the A1 segment of the right anterior cerebral artery. The patient got transferred to the ICU. The patient was given TPA. The patient had some altered mentation, he had left-sided flaccid dialysis. Subsequently his ox idation got progressively worse and his condition deteriorated and the patient had to be intubated and placed on a mechanical ventilator. Patient was intubated on 03/28/2021. At this point in time, the patient is intubated and sedated. The patient is also paralyzed. Her propofol is running at 50 mics respiratory per minute and the patient is also Nimbex at 2 mcg/kg per minute. The patient on a mechanical ventilator on assist control mode at the rate of 24 with a tidal volume of 450 and FiO2 of 50% with a PEEP of 5. Chest x-ray was noted. Blood gases was noted. Follow-up CAT scan of the head done showed evolution of a large right MCA infarct with edema and mass effect and midline shift. There was hyperdense right MCA sign consistent with complete occlusion. Based on that, the patient is still in the intensive care unit. Worsening of the right MCA infarct was noticed along with some mass effect. Neurology on the case. The patient is currently on hypertonic 3% saline solution. CODE STATUS is DNR/DNI. Patient currently is on 3% saline solution at the rate of 35 mL an hour. Patient is also on heparin subcu for DVT prophylaxis. The patient on Levemir insulin 25 units daily at bedtime in addition to 10 units every 6 hours plus a sliding scale coverage. Remains on Decadron 6mg IV every 6 hours and the patient is also on aspirin 325 minutes by mouth daily. A 2-D echocardiogram showed mild concentric LVH, LV systolic ejection fraction was within normal with an EF of around 55-60% normal left atrial rise and volume. The blood work from today shows a sodium level of 148 with a chloride level of 115, his blood sugar is at 266, LDH level is 1025, LFTs are normal, white cell count is at 13.7 with a hemoglobin of 14.6. The chest x-ray from today was repeated and it showed cardiomegaly, the film itself is a rotated. ET tube is seen at the level of the aortic knob. OG tube is in place. There are bilateral pulmonary infiltrates especially in the left upper lobe, right lower lobe and left lower lobe. A repeat CAT scan is in progress for today. Meanwhile, his blood gases from today is still pending. on today's evaluation of 04/01/2021, I'm seeing this patient for a follow-up. Is a complicated case of COVID 19 related pneumonia, respiratory failure and a cute CVA along the MCA distribution on the right with left-sided weakness. This morning, the patient is off paralytics. I took him off the paralytics as of yesterday. He remains sedated with propofol which is currently running at 40 mcg/kg per minute. At the same time, the patient remains intubated on a mechanical ventilator. The patient is currently on a assist-control mode and the patient is currently at the rate of 24 with a tidal volume of 450 and FiO2 of 65% with a PEEP of 15. The chest x-ray from today is showing no significant interval change.Note that since yesterday, the patient some worsening in her oxygenation. The patient was brought up to a peak of 15 and the current FiO2 is at 60% and the follow-up blood gases showed improvement in oxygenation. ET tube is still in good location. There is underlying cardiomegaly. There is also evidence of bilateral pulmonary infiltrates more so in the lower lobes and more so on the left.Meanwhile remains on Decadron and currently the patient is taking high-dose Decadron at 6 mg IV every 6 hours. No significant orotracheal secr etions.. For now, the patient is hemodynamically stable on no pressors. The inflammatory markers shows an LDH level of 1339 and the patient is afebrile for the time being. Neurologically, condition is unchanged. The patient was seen by neurology yesterday and the plan is to repeat the CAT scan of the brain today. As mentioned, the patient is off Nimbex. He remains on 3% hypertonic saline solution. He remains on aspirin 325 mg orally and the Plavix is currently on hold. Most recent sodium level is at 149. The patient does not qualify for any surgical intervention regarding his massive stroke and mass effect. A repeat CAT scan of the brain is to be done today and possibility of comfort care measures are being entertained by the family. Otherwise, no other significant events.Blood sugar management this with the primary care physician as the patient has been adjusted to include Levemir insulin 20 units daily and 40 units in the evening in addition to NovoLog insulin 14 units every 6 hours plus a sliding scale coverage. Blood sugars remain somewhat elevated on today's evaluation. It is still running in the range of 300 for now. Objective - Vital Signs Vital signs: Vital Signs Temp 99.6 F 04/01/21 04:00 Pulse 116 H 04/01/21 07:00 Resp 38 H 04/01/21 07:00 BP 77/59 04/01/21 07:00 Pulse Ox 97 04/01/21 07:00 Intake & Output 03/31/21 04/01/21 04/01/21 18:59 06:59 18:59 Intake Total 297 956.013 55 Output Total 1625 465 35 Balance -1328 491.013 20 Weight 93.9 kg Intake: IV 71 36 3 A-Line 36 36 3 Sodium Chloride 3%( 35 Hypertonic) 500 ml @ 35 mls/hr IV .[id number] [facility] Rx #:[id number] Intake, IV Titration 100 296.013 10 Amount Sodium Chloride 3%( 110 10 Hypertonic) 500 ml @ 35 mls/hr IV .[id number] [facility] Rx #:[id number] propofoL 1,000 mg In 100 186.013 Empty Bag 1 bag @ Titrate IV .Q0M [facility] Rx#: [id number] Tube Feeding 126 504 42 Other 120 Output: Urine 1625 465 35 Other: Voiding Method Indwelling Catheter Indwelling Catheter ABP, PAP, CO, CI - Last Documented Arterial Blood Pressure 83/54 - Exam GENERAL EXAM: Intubated, sedated, paralyzed 71-year-old male patient, on 50% FiO2 via the mechanical ventilator HEAD: Normocephalic/atraumatic. EYES: Normal reaction of pupils, equal size. Conjunctiva pink, sclera white. NOSE: Clear with pink turbinates. THROAT: No erythema or exudates. NECK: No masses, no JVD, no thyroid enlargement, no adenopathy. CHEST: No chest wall deformity. Symmetrical expansion. LUNGS: Equal air entry with diffuse crackles bilaterally CVS: Regular rate and rhythm, normal S1 and S2, no gallops, no murmurs, no rubs ABDOMEN: Soft, nontender. No hepatosplenomegaly, normal bowel sounds, no guarding or rigidity. EXTREMITIES: No clubbing, no edema, no cyanosis, 2+ pulses and upper and lower extremities. MUSCULOSKELETAL: Muscle strength and tone normal. SPINE: No scoliosis or deformity SKIN: No rashes CENTRAL NERVOUS SYSTEM: Unable to assess as patient is paralyzed and on the mechanical ventilator PSYCHIATRIC: Unable to assess as patient is paralyzed and on the mechanical ventilator - Labs CBC & Chem 7: 04/01/21 04:00 04/01/21 04:00 Labs: Abnormal Lab Results - Last 24 Hours (Table) 03/31/21 03/31/21 03/31/21 Range/Units 06:10 11:35 12:41 WBC (3.8-10.6) k/uL Neutrophils # (1.3-7.7) k/uL Lymphocytes # (1.0-4.8) k/uL ABG pH 7.52 H (7.35-7.45) ABG pCO2 58 H (35-45) mmHg ABG pO2 60 L 43 L* (83-108) mmHg ABG HCO3 34 H 33 H (21-25) mmol/L ABG Total CO2 36 H 35 H (19-24) mmol/L ABG O2 Saturation 90.5 L 83.1 L (94-97) % Sodium (137-145) mmol/L Potassium (3.5-5.1) mmol/L Chloride (98-107) mmol/L BUN (9-20) mg/dL Glucose (74-99) mg/dL POC Glucose (mg/dL) 280 H (75-99) mg/dL AST (17-59) U/L ALT (4-49) U/L Alkaline Phosphatase (38-126) U/L Lactate Dehydrogenase (313-618) U/L Total Protein (6.3-8.2) g/dL Albumin (3.5-5.0) g/dL 03/31/21 03/31/21 03/31/21 Range/Units 18:00 20:51 20:56 WBC (3.8-10.6) k/uL Neutrophils # (1.3-7.7) k/uL Lymphocytes # (1.0-4.8) k/uL ABG pH 7.47 H (7.35-7.45) ABG pCO2 46 H (35-45) mmHg ABG pO2 267 H (83-108) mmHg ABG HCO3 33 H (21-25) mmol/L ABG Total CO2 34 H (19-24) mmol/L ABG O2 Saturation 99.0 H (94-97) % Sodium 150 H (137-145) mmol/L Potassium (3.5-5.1) mmol/L Chloride (98-107) mmol/L BUN (9-20) mg/dL Glucose (74-99) mg/dL POC Glucose (mg/dL) 238 H (75-99) mg/dL AST (17-59) U/L ALT (4-49) U/L Alkaline Phosphatase (38-126) U/L Lactate Dehydrogenase (313-618) U/L Total Protein (6.3-8.2) g/dL Albumin (3.5-5.0) g/dL 04/01/21 04/01/21 04/01/21 Range/Units 00:14 03:31 04:00 WBC 18.6 H (3.8-10.6) k/uL Neutrophils # 17.3 H (1.3-7.7) k/uL Lymphocytes # 0.6 L (1.0-4.8) k/uL ABG pH (7.35-7.45) ABG pCO2 (35-45) mmHg ABG pO2 (83-108) mmHg ABG HCO3 (21-25) mmol/L ABG Total CO2 (19-24) mmol/L ABG O2 Saturation (94-97) % Sodium (137-145) mmol/L Potassium (3.5-5.1) mmol/L Chloride (98-107) mmol/L BUN (9-20) mg/dL Glucose (74-99) mg/dL POC Glucose (mg/dL) 288 H 310 H (75-99) mg/dL AST (17-59) U/L ALT (4-49) U/L Alkaline Phosphatase (38-126) U/L Lactate Dehydrogenase (313-618) U/L Total Protein (6.3-8.2) g/dL Albumin (3.5-5.0) g/dL 04/01/21 04/01/21 Range/Units 04:00 05:45 WBC (3.8-10.6) k/uL Neutrophils # (1.3-7.7) k/uL Lymphocytes # (1.0-4.8) k/uL ABG pH (7.35-7.45) ABG pCO2 49 H (35-45) mmHg ABG pO2 111 H (83-108) mmHg ABG HCO3 32 H (21-25) mmol/L ABG Total CO2 33 H (19-24) mmol/L ABG O2 Saturation 98.5 H (94-97) % Sodium 149 H (137-145) mmol/L Potassium 5.3 H (3.5-5.1) mmol/L Chloride 114 H (98-107) mmol/L BUN 58 H (9-20) mg/dL Glucose 326 H (74-99) mg/dL POC Glucose (mg/dL) (75-99) mg/dL AST 62 H (17-59) U/L ALT 80 H (4-49) U/L Alkaline Phosphatase 35 L (38-126) U/L Lactate Dehydrogenase 1339 H (313-618) U/L Total Protein 6.2 L (6.3-8.2) g/dL Albumin 2.9 L (3.5-5.0) g/dL Assessment and Plan Plan: 1 Acute hypoxic respiratory failure related to acute COVID-19 pneumonia, worsening pulmonary status and required intubation and mechanical ventilatory support on 03/27/2021. The patient remains on Decadron for now. Remains intubated on a mechanical ventilator. Chest x-ray was noted. Blood gases was noted. 2 Acute left-sided weakness and code stroke on 03/26/2021 status post TPA i nfusion. CT angiogram revealed a 1.5 cm segment of significant stenosis of the proximal right middle cerebral artery. He continues with left-sided weakness and left-sided neglect. Follow-up computed tomography scan of the brain done 11/24/2020 reveals a large right cerebral hemisphere acute infarct which is a change compared to the previous. There is evidence of cerebral edema. No hemorrhage. Infarct in the right middle cerebral artery distribution and also involvement of the right posterior cerebral artery distribution. Follow-up computed tomography scan on 03/30/2021 revealed a significant evolution of the acute right large MCA infarct with local mass effect and midline shift. Hype rdense right MCA sign consistent with complete occlusion. The patient is currently on high dose Decadron. The patient is also on hypertonic saline solution 3% running at 35 mL's an hour. The patient is also on aspirin 325 mg by mouth daily and the patient is also on heparin subcu for DVT prophylaxis. The patient is also on high-dose statins, neurologically unchanged on today's evaluation and the patient is off paralytics currently on propofol 3 Elevated d-dimer with no CTA evidence of pulmonary embolism, Dopplers negative 3 Acute kidney injury that improved 4 mild hypernatremia, currently on 3% hypertonic saline solution 5 Diabetes mellitus type 2, with a component of steroid-induced hyperglycemia the patient is currently on high dose Decadron, currently on Levemir 40 unitsdaily at bedtime and 20 units in the morning along with NovoLog 14 units every 6 hours plus a sliding scale coverage 6 Elevated pro-calcitonin with the possibility of bacterial infection and possibility of bacterial pneumonia Plan: Proceed with a follow-up CAT scan of the brain and discussed the findings with neurology Dear the patient sedation holiday after his CAT scan of the brain and assess his underlying mental status, noted the patient is currently off paralytics Continue hypertonic saline for now and monitor the electrolytes Continue Decadron and make the appropriate adjustments on the blood sugar control No other ventilator changes for today Prognosis remains extremely poor We will continue to follow, extremely poor prognosis based on the above- mentioned comorbidities. We'll be awaiting the follow-up CAT scan of the brain and make further recommendations to the patient's family. CODE STATUS is currently DO NOT RESUSCITATE. There is a critically care evaluation that was done and more than 30 minutes. Time with Patient: Greater than 30
--- NOTE | 2021-04-01 11:11 | CT ---
EXAMINATION TYPE: CT brain wo con DATE OF EXAM: 04/01/2021 HISTORY: Altered mental status; bone CVA CT DLP: 1187 mGycm. Automated Exposure Control for Dose Reduction was Utilized. TECHNIQUE: CT scan of the head is performed without contrast. COMPARISON: CT brain 3 days ago and older studies. FINDINGS: Large infarct in the right MCA distribution with arboleda-white matter blurring and sulcal ef facement involving frontal parietal and temporal lobes is redemonstrated. There is more prominent mid line shift to the left axial image 26 at the level of septum pellucidum now measuring 16 mm. There is some mass effect along the right ventral aspect of the midbrain and superior brittani near axial image 2 2 redemonstrated. More somnolent mass effect involving the suprasellar cistern redemonstrated axial i mage 20. Left frontal salomón hole redemonstrated. Note is made of endotracheal and orogastric tubes redemonstrat ed on localizer. Retained fluid or secretions in the posterior nasopharynx again seen. The globes are intact and the visualized sinuses are clear. Hyperdense right MCA sign axial images 22 and 23 janet in present less well-seen current study IMPRESSION: Acute large right MCA infarct with local mass effect and midline shift redemonstrated. In creasing midline shift noted.
[2021-04-01] MEDS: CHOLECALCIFEROL 25 MCG (1000 IU) TABLET PO SCH (11:22)
[2021-04-01] MEDS: ASPIRIN 325 MG TAB PO SCH (11:23)
[2021-04-01] MEDS: ASCORBIC ACID 500 MG TAB PO SCH (11:23)
[2021-04-01] MEDS: ZINC SULFATE 220 MG CAP PO SCH (11:23)
[2021-04-01 11:46] LABS: Glucose,Whole Blood 355 mg/dL (75-99)
--- NOTE | 2021-04-01 12:15 | P.PN ---
Subjective Progress Note Date: 04/01/21 Principal diagnosis: shortness of breath Patient is a 71-year-old male with a history of diabetes mellitus and hypertension who presented to the emergency department with complaints of fevers, headache, muscle aches and poor appetite. In the emergency department he underwent an extensive evaluation. On arrival he was found to be satting 75% on room air and had a heart rate of 120. Urinalysis is remarkable for lactic acid of 2.5, creatinine 1.38, and COVID-19 testing was positive. He underwent a CTA of the chest which showed no evidence of pulmonary embolism but did demonstrate extensive patchy bilateral pneumonia. He was admitted and was started on dexamethasone and IV fluids. He was seen by pulmonary critical care who recommended lower extremity venous Dopplers. These were completed without evidence of DVT. He did have a pro-calcitonin drawn which was elevated at 1.51. Therefore he was kept on Rocephin and Zithromax as bacterial coinfection could not be eliminated. He continued to require high flow nasal cannula. His d- dimer improved. On the afternoon of 03/26 he developed sudden onset left-sided flaccid paralysis. Code stroke was called. He underwent a head CT which showed no acute process and a CTA head and neck which showed narrowing of the right MCA. Interventional neurology was contacted who did not recommend TPA or intervention at that time. He continued to have worsening of his symptoms over the next 2 hours and they were again recontacted and recommended TPA. This was administered on 03/26. On 03/27 the patient continued to have difficulty with swallowing, left-sided facial droop, and left-sided paralysis. He had worsening respiratory status and subsequently required intubation on 03/27. He then required paralytic. Repeat head CT demonstrated cerebral edema without midline shift or significant mass effect. Repeat head CT on 03/29 showed local mass effect and midline shift with acute large right MCA CVA. Patient seen and examined at bedside. He is sedated and paralyzed on the vent General:ill appearing, no distress, appears at stated age Derm: warm, dry Head: atraumatic, normocephalic, symmetric Eyes: Pupils nonreactive, no lip lesion, anicteric sclera Mouth: no lip lesion, mucus membranes dry Cardiovascular: S1S2 reg, no murmur, positive posterior tibial pulse bilateral, Lungs: Clear to auscultation bilaterally, no accessory muscle use, on vent Abdominal: soft, nontender to palpation, no guarding, no appreciable organomegaly Ext: no gross muscle atrophy, no edema, no contractures Neuro: no breathing over vent, no withdrawal to pain in all 4 extremities, absent cough and gag Psych: sedated and intubated COVID-19 pneumonitis Acute hypoxic respiratory failure -Continue with dexamethasone -Pulmonary recommendations: Not a candidate for Remdesivir -Continue vitamin C, vitamin D, zinc -completed rocephin and zithromax Right MCA Acute ischemic CVA with cerebral edema - await repeat head CT: per nursing will be coming in today to review prognosis with neurology -Decadron every 6 hours, s/p manitol - 3% saline, serial lytes with goal Na 145-155, follow osmol - s/p TPA -Aspirin -Lipitor -Neurology recommendations appreciated - poor over all prognosis Diabetes mellitus type II with hyperglycemia -Hold Glucophage -Sliding-scale insulin, fixed dose increased , Levimir increased -Follow blood sugars - A1C 7.9 Hypernatremia - medically induced due to cerebral edema Hyperkalemia - mild - repeat BMP - LoKalema if needed Hypertension -Lisinopril on hold, BP currently stable -Follow blood pressures Dyslipidemia -Atorvastatin Severe Pulm HTN - outpatient follow-up ALLEGRA, resolved Lactic acidosis, resolved Poor prognosis, Now DNR, DVT prophylaxis: Lovenox Discussed with: Nursing Anticipated discharge: undetermined Anticipated discharge place: home A total of 37 minutes was spent on the care of this complex patient more than 50% of the time was spent in counseling and care coordination. Objective - Vital Signs Vital signs: Vital Signs Temp 99.6 F 04/01/21 04:00 Pulse 116 H 04/01/21 07:00 Resp 38 H 04/01/21 07:00 BP 77/59 04/01/21 07:00 Pulse Ox 97 04/01/21 07:00 Intake & Output 03/31/21 04/01/21 04/01/21 18:59 06:59 18:59 Intake Total 297 956.013 159.93 Output Total 1625 465 70 Balance -1328 491.013 89.93 Weight 93.9 kg Intake: IV 71 36 3 A-Line 36 36 3 Sodium Chloride 3%( 35 Hypertonic) 500 ml @ 35 mls/hr IV .[id number] [facility] Rx #:[id number] Intake, IV Titration 100 296.013 114.93 Amount Sodium Chloride 3%( 110 10 Hypertonic) 500 ml @ 35 mls/hr IV .[id number] [facility] Rx #:[id number] propofoL 1,000 mg In 100 186.013 104.93 Empty Bag 1 bag @ Titrate IV .Q0M [facility] Rx#: [id number] Tube Feeding 126 504 42 Other 120 Output: Urine 1625 465 70 Other: Voiding Method Indwelling Catheter Indwelling Catheter # Voids 2 ABP, PAP, CO, CI - Last Documented Arterial Blood Pressure 83/54 - Labs CBC & Chem 7: 04/01/21 04:00 04/01/21 04:00 Labs: Abnormal Lab Results - Last 24 Hours (Table) 03/31/21 03/31/21 03/31/21 Range/Units 06:10 12:41 18:00 WBC (3.8-10.6) k/uL Neutrophils # (1.3-7.7) k/uL Lymphocytes # (1.0-4.8) k/uL ABG pH 7.52 H 7.47 H (7.35-7.45) ABG pCO2 58 H 46 H (35-45) mmHg ABG pO2 60 L 43 L* 267 H (83-108) mmHg ABG HCO3 34 H 33 H 33 H (21-25) mmol/L ABG Total CO2 36 H 35 H 34 H (19-24) mmol/L ABG O2 Saturation 90.5 L 83.1 L 99.0 H (94-97) % Sodium (137-145) mmol/L Potassium (3.5-5.1) mmol/L Chloride (98-107) mmol/L BUN (9-20) mg/dL Glucose (74-99) mg/dL POC Glucose (mg/dL) (75-99) mg/dL AST (17-59) U/L ALT (4-49) U/L Alkaline Phosphatase (38-126) U/L Lactate Dehydrogenase (313-618) U/L Total Protein (6.3-8.2) g/dL Albumin (3.5-5.0) g/dL 03/31/21 03/31/21 04/01/21 Range/Units 20:51 20:56 00:14 WBC (3.8-10.6) k/uL Neutrophils # (1.3-7.7) k/uL Lymphocytes # (1.0-4.8) k/uL ABG pH (7.35-7.45) ABG pCO2 (35-45) mmHg ABG pO2 (83-108) mmHg ABG HCO3 (21-25) mmol/L ABG Total CO2 (19-24) mmol/L ABG O2 Saturation (94-97) % Sodium 150 H (137-145) mmol/L Potassium (3.5-5.1) mmol/L Chloride (98-107) mmol/L BUN (9-20) mg/dL Glucose (74-99) mg/dL POC Glucose (mg/dL) 238 H 288 H (75-99) mg/dL AST (17-59) U/L ALT (4-49) U/L Alkaline Phosphatase (38-126) U/L Lactate Dehydrogenase (313-618) U/L Total Protein (6.3-8.2) g/dL Albumin (3.5-5.0) g/dL 04/01/21 04/01/21 04/01/21 Range/Units 03:31 04:00 04:00 WBC 18.6 H (3.8-10.6) k/uL Neutrophils # 17.3 H (1.3-7.7) k/uL Lymphocytes # 0.6 L (1.0-4.8) k/uL ABG pH (7.35-7.45) ABG pCO2 (35-45) mmHg ABG pO2 (83-108) mmHg ABG HCO3 (21-25) mmol/L ABG Total CO2 (19-24) mmol/L ABG O2 Saturation (94-97) % Sodium 149 H (137-145) mmol/L Potassium 5.3 H (3.5-5.1) mmol/L Chloride 114 H (98-107) mmol/L BUN 58 H (9-20) mg/dL Glucose 326 H (74-99) mg/dL POC Glucose (mg/dL) 310 H (75-99) mg/dL AST 62 H (17-59) U/L ALT 80 H (4-49) U/L Alkaline Phosphatase 35 L (38-126) U/L Lactate Dehydrogenase 1339 H (313-618) U/L Total Protein 6.2 L (6.3-8.2) g/dL Albumin 2.9 L (3.5-5.0) g/dL 04/01/21 04/01/21 Range/Units 05:45 11:45 WBC (3.8-10.6) k/uL Neutrophils # (1.3-7.7) k/uL Lymphocytes # (1.0-4.8) k/uL ABG pH (7.35-7.45) ABG pCO2 49 H (35-45) mmHg ABG pO2 111 H (83-108) mmHg ABG HCO3 32 H (21-25) mmol/L ABG Total CO2 33 H (19-24) mmol/L ABG O2 Saturation 98.5 H (94-97) % Sodium (137-145) mmol/L Potassium (3.5-5.1) mmol/L Chloride (98-107) mmol/L BUN (9-20) mg/dL Glucose (74-99) mg/dL POC Glucose (mg/dL) 355 H (75-99) mg/dL AST (17-59) U/L ALT (4-49) U/L Alkaline Phosphatase (38-126) U/L Lactate Dehydrogenase (313-618) U/L Total Protein (6.3-8.2) g/dL Albumin (3.5-5.0) g/dL
[2021-04-01 13:47] VITALS: TEMP 98.1
[2021-04-01 17:44] LABS: Glucose,Whole Blood 332 mg/dL (75-99)
[2021-04-01] MEDS ORDERED: MORPHINE SULFATE 4 MG/ML SYRINGE IV PRN (17:50)
[2021-04-01] MEDS ORDERED: LORazepam 2 MG/ML INJ IV PRN (17:50)
[2021-04-01] MEDS ORDERED: ATROPINE OPHTH SOLN 1% 5ML BTL SUBLINGUAL PRN (17:50)
[2021-04-01] MEDS ORDERED: ONDANSETRON 4 MG/2 ML VIAL IVP PRN (17:50)
[2021-04-01] MEDS: HEPARIN SODIUM,PORCINE/PF 5,000 UNIT/0.5 ML SYRINGE SQ SCH (17:54)
[2021-04-01] MEDS ORDERED: SCOPOLAMINE 1.5MG/72HR PATCH TRANSDERM SCH (18:00)
[2021-04-01] MEDS ORDERED: MORPHINE SULFATE (100 MG/2 ML) 100 MG in SODIUM CHLORIDE 0.9% 100 ML IV SCH (18:00)
[2021-04-01 19:56] VITALS: BP 120/79
[2021-04-01 20:27] VITALS: PULSE 121; RESP 38
[2021-04-01] MEDS ORDERED: INSULIN DETEMIR (LEVEMIR) 100 UNIT/ML SYR SQ SCH (21:00)
[2021-04-02] MEDS ORDERED: INSULIN DETEMIR (LEVEMIR) 100 UNIT/ML SYR SQ SCH (07:00)
--- NOTE | 2021-04-02 07:34 | P.DS ---
Providers Date of admission: 03/24/21 04:02 Attending physician: Michael Orantes MD Consults: 03/24/21 04:02 Consult Physician Routine Consulting Provider: Mago Gant Consult Reason/Comments: COVID-19 pneumonia Do you want consulting provider notified?: Yes 03/26/21 18:41 Consult Physician Urgent Consulting Provider: Kelvin Barfield Consult Reason/Comments: CVA Do you want consulting provider notified?: Yes Primary care physician: Major Malik MD Hospital Course: Discharge Diagnosis: COVID-19 pneumonitis Right MCA Acute ischemic CVA with cerebral edema Diabetes mellitus type II with hyperglycemia Hypernatremia Hyperkalemia Hypertension Dyslipidemia Severe Pulm HTN ALLEGRA, resolved Cause of : COVID 19 pneumonia Right MCA Acute ischemic CVA with cerebral edema Hospital Course: Patient is a 71-year-old male with a history of diabetes mellitus and hypertension who presented to the emergency department with complaints of fevers, headache, muscle aches and poor appetite. In the emergency department he underwent an extensive evaluation. On arrival he was found to be satting 75% on room air and had a heart rate of 120. Urinalysis is remarkable for lactic acid of 2.5, creatinine 1.38, and COVID-19 testing was positive. He underwent a CTA of the chest which showed no evidence of pulmonary embolism but did demonstrate extensive patchy bilateral pneumonia. He was admitted and was started on dexamethasone and IV fluids. He was seen by pulmonary critical care who recommended lower extremity venous Dopplers. These were completed without evidence of DVT. He did have a pro-calcitonin drawn which was elevated at 1.51. Therefore he was kept on Rocephin and Zithromax as bacterial coinfection could not be eliminated. He continued to require high flow nasal cannula. His d- dimer improved. On the afternoon of 03/26 he developed sudden onset left-sided flaccid paralysis. Code stroke was called. He underwent a head CT which showed no acute process and a CTA head and neck which showed narrowing of the right MCA. Interventional neurology was contacted who did not recommend TPA or in tervention at that time. He continued to have worsening of his symptoms over the next 2 hours and they were again recontacted and recommended TPA. This was administered on 03/26. On 03/27 the patient continued to have difficulty with swallowing, left-sided facial droop, and left-sided paralysis. He had worsening respiratory status and subsequently required intubation on 03/27. He then required paralytic. Repeat head CT demonstrated cerebral edema without midline shift or significant mass effect. Repeat head CT on 03/29 showed local mass effect and midline shift with acute large right MCA CVA. Patient prognosis was guarded. Prognosis was discussed with family. Family made patient comfort care. Patient on 04/01/21 at 21:25 on comfort care measures. Patient Condition at Discharge: Undetermined Plan - Discharge Summary Discharge Rx Participant: No New Discharge Prescriptions: No Action lisinopriL 10 mg PO DAILY Omeprazole 20 mg PO DAILY Multivitamins, Thera [Multivitamin (formulary)] 1 tab PO DAILY Magnesium Oxide 400 mg PO DAILY Dapagliflozin/Metformin HCl [Xigduo Xr 10 mg-1,000 mg Tab] 1 tab PO DAILY Cetirizine HCl [Zyrtec] 10 mg PO DAILY Atorvastatin [Lipitor] 10 mg PO DAILY Discharge Medication List Atorvastatin [Lipitor] 10 mg PO DAILY 03/24/21 [History] Cetirizine HCl [Zyrtec] 10 mg PO DAILY 03/24/21 [History] Dapagliflozin/Metformin HCl [Xigduo Xr 10 mg-1,000 mg Tab] 1 tab PO DAILY 03/24/21 [History] Magnesium Oxide 400 mg PO DAILY 03/24/21 [History] Multivitamins, Thera [Multivitamin (formulary)] 1 tab PO DAILY 03/24/21 [History] Omeprazole 20 mg PO DAILY 03/24/21 [History] lisinopriL 10 mg PO DAILY 03/24/21 [History] Follow up Appointment(s)/Referral(s): Desmond Barfield DO [Doctor of Osteopathic Medicine] - 1 Week Major Malik MD [Primary Care Provider] - 1-2 days Discharge Disposition: - Preliminary Cause of Preliminary Cause of : COVID 19
--- NOTE | 2021-04-02 10:08 | P.PN ---
Subjective Progress Note Date: 04/01/21 Patient was seen for a follow-up. Patient has been off sedation with propofol since 1 PM. Patient not showing any clinical improvement. Patient is intubated. Patient is off Nimbex. Patient's Peep has been increased to 15. Patient was on propofol, which was discontinued for 3.5 hours from 9 AM to 12:45 PM but then patient started bucking the ventilator. The propofol was resumed at 50 mcg/kg/m. Patient's condition does not appear to have improved. He continues to be on 3% hypertonic saline. Objective - Vital Signs Vital signs: Vital Signs Temp 98.1 F 04/01/21 12:00 Pulse 124 H 04/01/21 14:00 Resp 35 H 04/01/21 14:00 BP 101/72 04/01/21 14:00 Pulse Ox 96 04/01/21 14:00 Intake & Output 03/31/21 04/01/21 04/01/21 18:59 06:59 18:59 Intake Total 297 956.013 498.650 Output Total 1625 465 490 Balance -1328 491.013 8.650 Weight 93.9 kg Intake: IV 71 36 94 A-Line 36 36 24 Sodium Chloride 3%( 35 70 Hypertonic) 500 ml @ 35 mls/hr IV .[id number] [facility] Rx #:[id number] Intake, IV Titration 100 296.013 134.650 Amount Sodium Chloride 3%( 110 10 Hypertonic) 500 ml @ 35 mls/hr IV .[id number] [facility] Rx #:[id number] propofoL 1,000 mg In 100 186.013 124.650 Empty Bag 1 bag @ Titrate IV .Q0M [facility] Rx#: [id number] Tube Feeding 126 504 210 Other 120 60 Output: Urine 1625 465 490 Other: Voiding Method Indwelling Catheter Indwelling Catheter Indwelling Catheter # Voids 2 ABP, PAP, CO, CI - Last Documented Arterial Blood Pressure 135/78 - Exam Patient is off sedation since last 2.5 hours. Patient's head is deviated to the left, but the gaze is midline. Patient pupils are small, not clearly reacting. Oculocephalics are absent. Corneal reflex present. Patient was breathing over the ventilator and had gag and cough. Motor could not be assessed. Decreased tone particularly on the left. Plantars are mute. - Labs CBC & Chem 7: 04/01/21 04:00 04/01/21 13:15 Labs: Abnormal Lab Results - Last 24 Hours (Table) 03/31/21 03/31/21 03/31/21 Range/Units 06:10 18:00 20:51 WBC (3.8-10.6) k/uL Neutrophils # (1.3-7.7) k/uL Lymphocytes # (1.0-4.8) k/uL ABG pH 7.47 H (7.35-7.45) ABG pCO2 58 H 46 H (35-45) mmHg ABG pO2 60 L 267 H (83-108) mmHg ABG HCO3 34 H 33 H (21-25) mmol/L ABG Total CO2 36 H 34 H (19-24) mmol/L ABG O2 Saturation 90.5 L 99.0 H (94-97) % Sodium (137-145) mmol/L Potassium (3.5-5.1) mmol/L Chloride (98-107) mmol/L BUN (9-20) mg/dL Glucose (74-99) mg/dL POC Glucose (mg/dL) 238 H (75-99) mg/dL AST (17-59) U/L ALT (4-49) U/L Alkaline Phosphatase (38-126) U/L Lactate Dehydrogenase (313-618) U/L Total Protein (6.3-8.2) g/dL Albumin (3.5-5.0) g/dL 03/31/21 04/01/21 04/01/21 Range/Units 20:56 00:14 03:31 WBC (3.8-10.6) k/uL Neutrophils # (1.3-7.7) k/uL Lymphocytes # (1.0-4.8) k/uL ABG pH (7.35-7.45) ABG pCO2 (35-45) mmHg ABG pO2 (83-108) mmHg ABG HCO3 (21-25) mmol/L ABG Total CO2 (19-24) mmol/L ABG O2 Saturation (94-97) % Sodium 150 H (137-145) mmol/L Potassium (3.5-5.1) mmol/L Chloride (98-107) mmol/L BUN (9-20) mg/dL Glucose (74-99) mg/dL POC Glucose (mg/dL) 288 H 310 H (75-99) mg/dL AST (17-59) U/L ALT (4-49) U/L Alkaline Phosphatase (38-126) U/L Lactate Dehydrogenase (313-618) U/L Total Protein (6.3-8.2) g/dL Albumin (3.5-5.0) g/dL 04/01/21 04/01/21 04/01/21 Range/Units 04:00 04:00 05:45 WBC 18.6 H (3.8-10.6) k/uL Neutrophils # 17.3 H (1.3-7.7) k/uL Lymphocytes # 0.6 L (1.0-4.8) k/uL ABG pH (7.35-7.45) ABG pCO2 49 H (35-45) mmHg ABG pO2 111 H (83-108) mmHg ABG HCO3 32 H (21-25) mmol/L ABG Total CO2 33 H (19-24) mmol/L ABG O2 Saturation 98.5 H (94-97) % Sodium 149 H (137-145) mmol/L Potassium 5.3 H (3.5-5.1) mmol/L Chloride 114 H (98-107) mmol/L BUN 58 H (9-20) mg/dL Glucose 326 H (74-99) mg/dL POC Glucose (mg/dL) (75-99) mg/dL AST 62 H (17-59) U/L ALT 80 H (4-49) U/L Alkaline Phosphatase 35 L (38-126) U/L Lactate Dehydrogenase 1339 H (313-618) U/L Total Protein 6.2 L (6.3-8.2) g/dL Albumin 2.9 L (3.5-5.0) g/dL 04/01/21 04/01/21 Range/Units 11:45 13:15 WBC (3.8-10.6) k/uL Neutrophils # (1.3-7.7) k/uL Lymphocytes # (1.0-4.8) k/uL ABG pH (7.35-7.45) ABG pCO2 (35-45) mmHg ABG pO2 (83-108) mmHg ABG HCO3 (21-25) mmol/L ABG Total CO2 (19-24) mmol/L ABG O2 Saturation (94-97) % Sodium 150 H (137-145) mmol/L Potassium (3.5-5.1) mmol/L Chloride (98-107) mmol/L BUN (9-20) mg/dL Glucose (74-99) mg/dL POC Glucose (mg/dL) 355 H (75-99) mg/dL AST (17-59) U/L ALT (4-49) U/L Alkaline Phosphatase (38-126) U/L Lactate Dehydrogenase (313-618) U/L Total Protein (6.3-8.2) g/dL Albumin (3.5-5.0) g/dL Assessment and Plan Assessment: * Acute large right hemispheric ischemic stroke (NIH 28) post IV tpa on 03/26/2021. Stroke appears due to COVID-19 (no afib or flutter per primary t eam). * Malignant cerebral edema, with significant midline shift. 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 Received 2 doses of IV mannitol and is currently on 3% hypertonic saline * Encephalopathy due to multifactorial: Stroke, medication effect (Nimbex and IV propofol) and hypoxic encephalopathy * Intubated and on mechanical ventilation for airway protection * History of Craniotomy over the left hemisphere: Had fall and suffered bleeding in 1987 (according to ) * Acute hypoxic respiratory failure related to do acute COVID-19 ammonia * Acute kidney injury--resolved * Diabetes mellitus type 2 Plan: * CT head was performed today. It revealed acute large right MCA infarct, with local mass effect and midline shift redemonstrated. Increasing midline shift of about 16 mm towards the left. The CVA involves part of the right MCA as well as the right E[employer] DEVELOPER vascular territory (unless there is some anomalous vascular supply). * Patient is comatose. GCS 3. Patient has a very poor prognosis. I discussed at length with patient's and son over the phone, answer their questions. They will let the nurse know about their decision about further care. * Continue ASA 325mg via OG tube. We'll hold off on Plavix for now. Continue Lipitor daily at bedtime. * Continue hypertonic saline. Sodium is 150. * Continue neuro checks * Continue cardiac monitoring * Will Defer the rest of the medical management to the the primary team and ICU team. * For DVT prophylaxis: Continue subq heparin 5000U every 12 hours. * Overall condition is critical and prognosis is very poor. Patient probably would be a long-term alf candidate, if he survives the cerebral edema.
== END 2021-04-01 23:42 | disposition expired | DRG 207 ==
LOC: EC 01:35 → 4SSUR 04:02 → 3SCARD 03-26 18:21 → 2SICU 03-26 21:22
PROVIDERS: ADMIT Internal Medicine; ATTEND Internal Medicine
PROC: 5A1955Z Respiratory Ventilation, Greater than 96 Consecutive Hours (ICD-10-PCS; principal; 2021-03-24)
PROC: 3E0F7SF Introduction of Other Gas into Respiratory Tract, Via Natural or Artificial Opening (ICD-10-PCS; 2021-03-24)
PROC: 3E03317 Introduction of Other Thrombolytic into Peripheral Vein, Percutaneous Approach (ICD-10-PCS; 2021-03-26)
PROC: 0BH17EZ Insertion of Endotracheal Airway into Trachea, Via Natural or Artificial Opening (ICD-10-PCS; 2021-03-28)
DX: U07.1 COVID-19 (principal); G93.6 Cerebral edema; J15.9 Unspecified bacterial pneumonia; I63.511 Cerebral infarction due to unspecified occlusion or stenosis of right middle cerebral artery; J12.82 Pneumonia due to coronavirus disease 2019; J96.01 Acute respiratory failure with hypoxia; R40.20 Unspecified coma; E87.0 Hyperosmolality and hypernatremia; E87.2 Acidosis; G81.04 Flaccid hemiplegia affecting left nondominant side; G93.1 Anoxic brain damage, not elsewhere classified; G93.49 Other encephalopathy; N17.9 Acute kidney failure, unspecified; R41.4 Neurologic neglect syndrome; Z51.5 Encounter for palliative care; Z66 Do not resuscitate; R29.728 NIHSS score 28; R47.1 Dysarthria and anarthria; R00.0 Tachycardia, unspecified; R47.81 Slurred speech; R59.0 Localized enlarged lymph nodes; G31.89 Other specified degenerative diseases of nervous system; E11.65 Type 2 diabetes mellitus with hyperglycemia; E78.5 Hyperlipidemia, unspecified; I10 Essential (primary) hypertension; I27.20 Pulmonary hypertension, unspecified; I49.3 Ventricular premature depolarization; R63.0 Anorexia; R79.89 Other specified abnormal findings of blood chemistry; K14.8 Other diseases of tongue; E87.5 Hyperkalemia; G47.00 Insomnia, unspecified; G51.0 Bell's palsy; Z79.4 Long term (current) use of insulin; Z79.82 Long term (current) use of aspirin; Z79.84 Long term (current) use of oral hypoglycemic drugs; Z79.899 Other long term (current) drug therapy; Z86.73 Personal history of transient ischemic attack (TIA), and cerebral infarction without residual deficits; Z88.0 Allergy status to penicillin
CPT/HCPCS: 36415; 36600; 70450; 70496; 70498; 71045; 71275; 80048; 80053; 80061; 82805; 83036; 83605; 83615; 83735; 83880; 84100; 84145; 84295; 84443; 84484; 85025; 85027; 85379; 85610; 85730; 86140; 87040; 87070; 87205; 87449; 87635; 93005; 93306; 93970; 94002; 94003; 94640